=== PATIENT | female | born 1985 | race Caucasian/White ===

== ENCOUNTER 2019-08-22 15:59 | Emergency (ER) | payer BC, SELFPAY ==
[2019-08-22 16:23] VITALS: BP 94/68; PULSE 63; RESP 20; TEMP 37.3; O2SAT 100
--- NOTE | 2019-08-22 16:27 | ED.URI ---
HPI - URI/Sore Throat General Chief Complaint: Abdominal Pain Stated Complaint: abd pain/chills Source: patient and RN notes reviewed Mode of arrival: ambulatory Limitations: no limitations Related Data Home Medications Medication Instructions Recorded Confirmed Alive 1 tablet PO DAILY 07/14/19 07/14/19 Belbuca 300 mcg BUCCAL BID 07/14/19 07/14/19 Allergies Allergy/AdvReac Type Severity Reaction Status Date / Time Penicillins Allergy Unknown Unknown Verified 07/17/19 13:41 Review of Systems Review of Systems: Narrative: CONSTITUTIONAL: Denies malaise, chills, sweats, or fever. EYES: Denies visual changes, redness, or discharge. ENT: Reports rhinorrhea, congestion, sinus pain, otalgia and sore throat. CARDIOVASCULAR: Denies chest pain, palpitations, or edema. RESPIRATORY: Reports cough. Denies dyspnea. GASTROINTESTINAL: Denies abdominal pain, nausea, vomiting, diarrhea SKIN: Denies rash or itching. MUSCULOSKELETAL: Denies myalgia. NEUROLOGIC: Denies headache. All systems reviewed & are unremarkable except as noted in HPI and below PMFSH Past Medical History Medical History Chronic narcotic use Family History Family History (Updated 04/30/15 @ 14:26 by DOCTOR UNKNOWN) Grandparent Diabetes mellitus Social History Social History Smoking status: Never smoker Alcohol intake: current Comments At time of signature, agree with nursing past medical, surgical, social and family history. There is no relevant family history pertinent to the presenting complaint Exam Narrative: Exam Narrative: GENERAL: Well-appearing, well-nourished, and in no acute distress. HEAD: Normocephalic EYES: PERRLA, conjunctivae clear ENT: Nares clear, turbinates edematous and erythematous, clear discharge. Mucous membranes moist. TM pearly flores with dull light reflex bilaterally; no tragal tenderness. Oropharynx erythematous without lesions. Tonsils enlarged and without exudate, no drooling, no hoarseness, no trismus, uvula midline. NECK: Supple. No lymphadenopathy CHEST: Clear to auscultation, breath sounds equal. No wheezing, rhonchi, rales, or stridor. No respiratory distress, speaks in full sentences. HEART: Regular rate and rhythm. No murmur heard. Normal peripheral pulses. SKIN: Warm, dry, no rash. NEURO: Alert and oriented x3. PSYCH: Normal mood and affect ABDOMEN: Soft, flat, nondistended. No guarding, rebound tenderness, or rigid. No pulsatilla masses. Bowel sounds present in all four quadrants. No organomegaly. Negative Calvillo?s sign. No periumbilical tenderness. No Supra public tenderness or distension. Good femoral pulses bilaterally. No hernia noted. No scars or surface trauma. Course Course Emergency Course: Patient is aware of diagnosis, understands and agrees to treatment plan. Anticipatory guidance given. Patient agrees to follow-up as directed and is aware of reasons to seek care at the emergency department. Portions of this record may have been created with voice recognition software Vital Signs Vital signs: Reviewed. MDM - URI/Sore Throat MDM Narrative Medical decision making narrative: No evidence of pancreatitis, AAA, cholecystitis, choledocholithiasis, cholangitis, mesenteric ischemia, small bowel obstruction, diverticulitis, colitis, appendicitis, or pelvic etiology such as ovarian torsion, TOA, or ectopic . Patient has no history of peptic ulcer, H. pylori, chronic aspirin NSAID or corticosteroid use, chronic alcohol use, no history of inflammatory bowel disease, no history of active abdominal infection or malignancy. Patient has no history of hernia or intra-abdominal surgeries, patient denies absence of flatus, constipation, melena, hematemesis. Patient denies post-prandial pain. No pain-out of proportion. Exam findings show no acute concerns or changes; patient is non-toxic appearing and is in no distress. Patient is appropriate for outpatient treatment and follow-up. Crit
--- NOTE | 2019-08-22 16:44 | ED.ABDPAIN ---
HPI - Abdominal Pain General Chief Complaint: Abdominal Pain Stated Complaint: abd pain/chills Time Seen by Provider: 08/22/19 16:30 Source: patient and RN notes reviewed Mode of arrival: ambulatory Limitations: no limitations History of Present Illness HPI narrative: 33-year-old female presents with concern for 3-day history of periumbilical pain with chills. Reports pain is intermittent but takes her breath away she denies nausea vomiting, constipation, diarrhea. Reports she had a normal bowel movement yesterday. Reports urine frequency for 2 days, however denies dysuria, hematuria, urgency. Reports her last menstrual period was in May because she had a that ended in miscarriage at the end of June for which she had a D&C at the end of June. She reports she has not had a menstrual period since then, however has not been sexually active and denies chance of . MD elicited complaint: abdominal pain Related Data Home Medications Medication Instructions Recorded Confirmed buprenorphine 1 patch TRANSDERMAL WEEKLY 08/22/19 08/22/19 Allergies Allergy/AdvReac Type Severity Reaction Status Date / Time Penicillins Allergy Unknown Unknown Verified 08/22/19 16:37 Review of Systems Review of Systems: Narrative: CONSTITUTIONAL: Denies malaise,sweats, or fever. Reports chills ENT: Denies rhinorrhea, congestion, sinus pain, otalgia or sore throat. CARDIOVASCULAR: Denies chest pain, palpitations RESPIRATORY: Denies cough or dyspnea. GASTROINTESTINAL: Reports periumbilical abdominal pain. Denies nausea, vomiting, diarrhea, bloody, or mucous stools. GENITOURINARY: Denies dysuria or hematuria. Reports urine frequency MUSCULOSKELETAL: Denies myalgia. NEUROLOGIC: Denies headache. All systems reviewed & are unremarkable except as noted in HPI and below PMFSH Past Medical History Medical History Chronic narcotic use Family History Family History (Updated 04/30/15 @ 14:26 by DOCTOR UNKNOWN) Grandparent Diabetes mellitus Social History Social History Smoking status: Never smoker Alcohol intake: current Comments At time of signature, agree with nursing past medical, surgical, social and family history. There is no relevant family history pertinent to the presenting complaint Exam Narrative: Exam Narrative: GENERAL: Well-appearing, well-nourished, and in no acute distress. HEAD: Normocephalic, atraumatic. EYES: PERRLA, conjunctivae clear ENT: Nares clear. Mucous membranes moist. Oropharynx without edema, erythema, or lesions. Tonsils not enlarged and without exudate. NECK: Supple. CHEST: Speaks in full sentences. Clear to auscultation, breath sounds equal. No respiratory distress. HEART: Regular rate and rhythm. Capillary refill less than 3 seconds ABDOMEN: Soft, flat, nondistended. No guarding, rebound tenderness, or rigid. No pulsatilla masses. Bowel sounds present in all four quadrants. No organomegaly. Negative Calvillo?s sign. Right upper quadrant and epigastric tenderness. No periumbilical tenderness. No Supra public tenderness or distension. No scars or surface trauma. SKIN: Warm, dry, no rash. NEURO: Alert and oriented x3. PSYCH: Normal mood and affect Course Course Emergency Course: Patient is aware of, understands and agrees reasons to be seen in the emergency department. EMS transfer offered, patient declined. Patient agrees to present directly to the emergency department. Portions of this record may have been created with voice recognition software Vital Signs Vital signs: Vital Signs Temperature 99.2 F 08/22/19 16:23 Pulse Rate 63 08/22/19 16:23 Respiratory Rate 20 08/22/19 16:23 Blood Pressure 94/68 L 08/22/19 16:23 Pulse Oximetry 100 08/22/19 16:23 Temperature 99.2 F 08/22/19 16:23 Pulse Rate 63 08/22/19 16:23 Respiratory Rate 20 08/22/19 16:23 Blood Pressure 94/68 L 08/22/19 16:23 Pulse Oximetry 100 08/22/19 16:23 R
== END 2019-08-22 16:49 | disposition short-term general hospital (02) ==
PROVIDERS: Emergency Provider Nurse Practitioner; PCP Family Medicine
DX: R10.13 Epigastric pain (principal)
CPT/HCPCS: 81003; 99213; G0463

== ENCOUNTER 2019-08-22 16:58 | Emergency (ER) | payer BC, SELFPAY ==
--- NOTE | ~2019-08-22 | CT_ITS ---
EXAMINATION: CT abdomen pelvis w con EXAM DATE: 08/22/2019 19:00 INDICATION: Mid abdominal pain. TECHNIQUE: Spiral CT of the abdomen and pelvis was performed following intravenous injection of 100 m L Omnipaque 350. Axial, coronal and sagittal images were reviewed. The dose-length product (DLP) fo r this examination was 246.03 mGy-cm. The exposure was tailored according to patient size (auto mA e xposure control), and iterative reconstruction (ASIR) was used as additional dose reduction technique . There is no prior study for comparison. FINDINGS: There is a long segment of descending colonic intussusception, measuring about 12 cm in [facility]. I this finding with GERMAN Rodriguez PA-C at 08/22/2019 19:10 HYDROGRAPHER, recommend surgical consult. There is expected amount of colonic stool more proximally, indicating that there h as not been long standing obstruction. The liver, spleen, adrenal glands and pancreas are unremarkable. Gallbladder is unremarkable. No bi liary obstruction. Portal and splenic veins are patent. Kidneys enhance symmetrically. There is no hydronephrosis. The uterus is unremarkable. The bladder is unremarkable. There is no retroperit huerta or pelvic lymphadenopathy. The appendix is normal. The stomach and small bowel are unremarkable. No free intraperitoneal gas. The heart is normal in size. There are no pericardial or pleural effusions. The lung bases are u nremarkable. There are no osteoblastic or osteolytic lesions identified. Mild chronic compression f racture of L1. IMPRESSION: Descending colonic intussusception, for long segment of about 12 cm. Can't exclude underl pinky colonic mass as lead point. No pneumatosis. Reviewed, dictated and finalized at location A. OGRAPHER IMPRESSION: Descending colonic intussusception, for long segment of about 12 cm . Can't exclude underlying colonic mass as lead point. No pneumatosis.
[2019-08-22 17:09] VITALS: BP 110/69; PULSE 63; RESP 20; TEMP 36.6; O2SAT 100
[2019-08-22 17:10] VITALS: BP 108/68; PULSE 70; RESP 16; TEMP 37; O2SAT 99
--- NOTE | 2019-08-22 17:33 | ED.ABDPAIN ---
HPI - Abdominal Pain General Chief Complaint: Abdominal Pain <GERMAN Rodriguez Last Filed: 08/22/19 21:46> Stated Complaint: Abd Pain <GERMAN Rodriguez Last Filed: 08/22/19 21:46> Time Seen by Provider: 08/22/19 17:12 <GERMAN Rodriguez Last Filed: 08/22/19 21:46> Source: patient <GERMAN Rodriguez Last Filed: 08/22/19 21:46> Mode of arrival: ambulatory <GERMAN Rodriguez Last Filed: 08/22/19 21:46> Limitations: no limitations <GERMAN Rodriguez Last Filed: 08/22/19 21:46> History of Present Illness HPI narrative: This is a 33 year old female that presents to the ER for mid abdominal pain x 3 days. Reports sharp mid abdominal pain. Reports it has been intermittent over the last couple days, but today it became more constant. Reports she had a normal bowel movement yesterday. Denies fever, nausea, vomiting, dysuria or hematuria. <GERMAN Rodriguez Last Filed: 08/22/19 21:46> Related Data Home Medications: Home Medications Medication Instructions Recorded Confirmed buprenorphine 1 patch TRANSDERMAL WEEKLY 08/22/19 08/22/19 <GERMAN Rodriguez Last Filed: 08/22/19 21:46> Allergies/Adverse Reactions: Allergies Allergy/AdvReac Type Severity Reaction Status Date / Time Penicillins Allergy Unknown Unknown Verified 08/22/19 16:37 <GERMAN Rodriguez Last Filed: 08/22/19 21:46> Review of Systems Review of Systems: Narrative: CONSTITUTIONAL: Denies fever GASTROINTESTINAL: Reports abdominal pain. Denies nausea, vomiting, or diarrhea. GENITOURINARY: Denies dysuria or hematuria. <GERMAN Rodriguez Last Filed: 08/22/19 21:46> All systems reviewed & are unremarkable except as noted in HPI and below <GERMAN Rodriguez Last Filed: 08/22/19 21:46> [facility] Past Medical History Medical History: Medical History (Updated 08/22/19 @ 20:48 by Anne Delacruz PA-C) Chronic narcotic use Complex regional pain syndrome <Anne Delacruz PA-C - Last Filed: 08/22/19 21:46> Surgical History Surgical History: Surgical History (Updated 08/22/19 @ 17:39 by Anne Delacruz PA-C) History of History of dilation and curettage <Anne Delacruz PA-C - Last Filed: 08/22/19 21:46> Family History Family History: Family History (Updated 04/30/15 @ 14:26 by DOCTOR UNKNOWN) Grandparent Diabetes mellitus <Anne Delacruz PA-C - Last Filed: 08/22/19 21:46> Social History Social History: Social History Smoking status: Never smoker Alcohol intake: current Gender identity (if verbalized by the patient): Female <Anne Delacruz PA-C - Last Filed: 08/22/19 21:46> Exam Narrative: Exam Narrative: GENERAL: Well-appearing, well-nourished, and in no acute distress. HEAD: Normocephalic, atraumatic. EYES: EOMI. CHEST: Clear to auscultation. No respiratory distress. No wheezes rales or rhonchi HEART: Regular rate and rhythm. No murmur heard. Normal peripheral pulses. ABDOMEN: Soft, nondistended, normal active bowel sounds. Mild tenderness to palpation of the mid abdomen, without guarding. No CVA tenderness EXTREMITIES: Normal range of motion. No edema. SKIN: Warm, dry, no rash. NEURO: No focal deficits. Alert and oriented x3. PSYCH: Normal mood and affect <Anne Delacruz PA-C - Last Filed: 08/22/19 21:46> Course TICKET SCHEDULER/PA Physician Supervision For this patient encounter, I reviewed the TICKET SCHEDULER or PA documentation, treatment plan, and medical decision making; and I had qqfu-pf-bghu time with this patient. 33 yo female w/ h/o complex regional pain syndrome presents with 3 days of abdominal pain worsening in severity. On CT she was found to have intussuception. The case was discussed with the radiologist and surgeon. They felt that she should be transfered to a higher level of care. Attempted transfer to [place], no beds. She will be transfered to [facility]. <López Lewis MD
[2019-08-22 17:35] LABS: Basophils Percent Auto 0.3 % (0.2-1.2); Eosinophils Absolute Auto 0.1 K/mm3 (0-0.3); Hematocrit 37.9 % (37.0-47.0); Hemoglobin 12.5 g/dL (12.0-15.0); Immature Granulocyte Absolute 0.02 K/mm3 (0.00-0.031); Immature Granulocyte Percent A 0.2 % (0-0.5); Lymphocytes Percent Auto 27.3 % (18.3-44.2); Mean Corpuscular Hemoglobin 29.9 pg (26-34); Mean Corpuscular Volume 90.7 fl (80-100); Monocytes Absolute Auto 0.9 K/mm3 (0.1-0.6); Neutrophils Absolute Auto 6.7 K/mm3 (1.3-6.7); Neutrophils Percent Auto 63.2 % (45.5-73.1); Platelet Count Result 216 k/mm3 (150-375); Red Blood Count 4.18 M/mm3 (4.2-5.4); Red Cell Distribution Width 12.4 % (11.5-14.5); White Blood Count 10.6 K/mm3 (4.5-10.0)
[2019-08-22] MEDS: ONDANSETRON INJ 4 MG/2 ML VIAL IV PUSH (17:38)
[2019-08-22] MEDS: FAMOTIDINE 20 MG/2 ML VIAL IV PUSH (17:38)
[2019-08-22 17:51] LABS: Add Urine Microscopic? NO; Appearance Urine Clear (Clear); Bilirubin Urine Negative (Negative); Blood Urine Negative (Negative); Color Urine Colorless (Yellow); Glucose Urine UA Negative (Negative); Ketones Urine Negative (Negative); Leukocyte Esterase Ur Negative LEU/UL (Negative); Nitrate Urine Negative (Negative); Protein Urine Negative (Negative); Specific Grav Ur 1.006 (1.001-1.035); Urobilinogen Urine Negative mg/dL (<2.0)
[2019-08-22 18:35] LABS: Alanine Aminotransferase 29 U/L (4-35); Albumin Level 4.3 g/dL (3.5-5.1); Alkaline Phosphatase 42 U/L (38-126); Aspartate Amino Transferase 39 U/L (14-36); Bilirubin,Total 0.3 mg/dL (0.2-1.3); Blood Urea Nitrogen 7 mg/dL (7-17); Calcium 9.2 mg/dL (8.4-10.2); Carbon Dioxide 28 mmol/L (22-30); Chloride 99 mmol/L (98-107); Estimated CRCL calculation 89 ml/min; Estimated Glomerular Filt Rate > 60; Glucose 86 mg/dL (65-105); Lipase 31 U/L (23-300); Potassium 4.1 mmol/L (3.4-5.0); Sodium 137 mmol/L (137-145)
[2019-08-22] MEDS: KETOROLAC 30 MG/ML VIAL (*BKC) IV PUSH (18:44)
[2019-08-22 19:44] VITALS: BP 118/70; PULSE 85; RESP 18; TEMP 36.8; O2SAT 99
--- NOTE | 2019-08-22 20:17 | PC.NURSE ---
Spoke with Juliane at [facility], will put on board, but currently no bed.
[2019-08-22 20:34] VITALS: BP 105/68; PULSE 80; RESP 18; O2SAT 100
[2019-08-22] MEDS: SODIUM CHLORIDE 0.9% IV 1,000 ML 150 ML IV CONT (21:32)
[2019-08-22 21:33] VITALS: BP 98/58; PULSE 82; RESP 16; O2SAT 99
--- NOTE | 2019-08-22 21:51 | PC.NURSE ---
Called [facility] to transport patient to [facility]. ETA midnight
--- NOTE | 2019-08-22 21:55 | PC.NURSE ---
Called [facility] to transport patient. [facility] declined.
--- NOTE | 2019-08-22 21:59 | PC.NURSE ---
Called [facility] to transport patient. [facility] declined
--- NOTE | 2019-08-22 22:00 | PC.NURSE ---
Called [facility] to transport patient. [facility] declined.
[2019-08-22 22:31] VITALS: BP 98/59; PULSE 84; RESP 18; O2SAT 98
[2019-08-23 00:01] VITALS: BP 102/56; PULSE 78; RESP 16; TEMP 36.9; O2SAT 99
--- NOTE | 2019-08-23 01:51 | PC.NURSE ---
[facility] called at 2356 and pushed ETA back to 0130 [facility] called at 0115 and pushed ETA back to 0215
--- NOTE | 2019-08-23 01:51 | PC.NURSE ---
Patient updated ambulance to here around 0215.
--- NOTE | 2019-08-23 02:19 | PC.NURSE ---
Called [facility] for update on ETA. ETA 10 minutes.
[2019-08-23 02:37] VITALS: BP 101/61; PULSE 78; RESP 16; TEMP 36.8; O2SAT 99
== END 2019-08-23 02:39 | disposition short-term general hospital (02) ==
PROVIDERS: Physician Assistant; Emergency Provider Emergency Medicine; PCP Family Medicine
DX: K56.1 Intussusception (principal); G90.50 Complex regional pain syndrome I, unspecified
CPT/HCPCS: 36415; 74177; 80053; 81003; 81025; 83690; 85025; 96361; 96374; 96375; 99285; J0131; J1885; J2405; J7030; Q9967

== ENCOUNTER 2020-04-30 10:00 | Outpatient (RCR) | payer BC, SELFPAY ==
[2020-04-13 10:25] VITALS: BP 102/64; PULSE 80
[2020-04-16 08:30] VITALS: BP 106/60; PULSE 88
[2020-04-20 17:39] VITALS: BP 100/62; PULSE 85
[2020-04-24 12:56] VITALS: BP 105/63; PULSE 82
[2020-04-27 11:12] VITALS: BP 101/62; PULSE 87
--- NOTE | ~2020-04-30 | US_ITS ---
EXAMINATION: US OB BPP wo non-stress DATE: 04/27/2020 10:29 INDICATION: IUGR during third trimester TECHNIQUE: Real-time pelvic ultrasound was performed. The interpreting radiologist was not present fo r the study. COMPARISON: 04/20/2020 FINDINGS: There is a single living fetus in vertex presentation. The placenta is anterior. heart rate is 133 beats per minute (bpm). The amniotic fluid index is subjectively normal. Biophysical profile performed by the technologist: breathing (30 sec sustained breathing in 30 minutes): 2 out of 2 movement (3 gross body movements in 30 minutes): 2 out of 2 tone (one episode of khhgmgv-xtmsxivdv-jtgmwra limb movement): 2 out of 2 Amniotic fluid pocket (2 cm): 2 out of 2 Total score: 8 out of 8 IMPRESSION: 1. Single living fetus in vertex presentation. 2. Biophysical profile 8 out of 8. Reviewed, dictated and finalized at location A. BOARD SUPERVISOR
--- NOTE | ~2020-04-30 | US_ITS ---
EXAMINATION: US OB BPP wo non-stress DATE: 04/20/2020 13:56 INDICATION: IUGR, third trimester TECHNIQUE: Real-time pelvic ultrasound was performed. The interpreting radiologist was not present fo r the study. COMPARISON: 04/16/2020 FINDINGS: There is a single living fetus in vertex presentation. The placenta is anterior. heart rate is 144 beats per minute (bpm). Biophysical profile performed by the technologist: breathing (30 sec sustained breathing in 30 minutes): 2 out of 2 movement (3 gross body movements in 30 minutes): 2 out of 2 tone (one episode of lvlivsu-qbthfvgsz-cszfszm limb movement): 2 out of 2 Amniotic fluid pocket (2 cm): 2 out of 2 Total score: 8 out of 8 IMPRESSION: 1. Single living fetus in vertex presentation. 2. Biophysical profile 8 out of 8. Reviewed, dictated and finalized at location A.
--- NOTE | ~2020-04-30 | US_ITS ---
EXAMINATION: US OB BPP wo non-stress DATE: 04/13/2020 09:56 INDICATION: Small for gestational age during third trimester TECHNIQUE: Real-time pelvic ultrasound was performed. The interpreting radiologist was not present fo r the study. COMPARISON: None. FINDINGS: There is a single living fetus in vertex presentation. The placenta is anterior. heart rate is 135 beats per minute (bpm). Amniotic fluid volume is subjectively normal. Biophysical profile performed by the technologist: breathing (30 sec sustained breathing in 30 minutes): 0 out of 2 movement (3 gross body movements in 30 minutes): 2 out of 2 tone (one episode of xaopzwc-yizmgllwq-xaosvfb limb movement): 2 out of 2 Amniotic fluid pocket (2 cm): 2 out of 2 Total score: 6 out of 8 IMPRESSION: 1. Single living fetus in vertex presentation with heart rate of 135 bpm. 2. Biophysical profile 6 out of 8 with no points given for 30 seconds of sustained breathing over 30 minutes of imaging. Reviewed, dictated and finalized at location A. IMPRESSION: 1. Single living fetus in vertex presentation with heart rate of 135 bpm. 2. Biophysical profile 6 out of 8 with no points given for 30 seconds of susta ined breathing over 30 minutes of imaging.
--- NOTE | ~2020-04-30 | US_ITS ---
US OB BPP wo non-stress DATE: 04/16/2020 08:36 INDICATION: Small for gestational age TECHNIQUE: Real-time imaging and Doppler analysis COMPARISON: 04/09/2020 obstetrical ultrasound with biophysical profile FINDINGS: Live single intrauterine gestation, fetus in longitudinal lie, vertex presentation. h eart rate of 135 bpm. Anterior placenta. Biophysical profile: breathing (30 seconds in 30 minutes): 2/2 movement (3 movements in 30 minutes): 2/2 tone (limited sdjgird-nbslwvtah-ceyohfp): 2/2 Amniotic fluid pocket of at least 2 cm: 2/2 IMPRESSION: Normal biophysical profile score of 8 out of 8 Reviewed, dictated and finalized at Location A. Reviewed, dictated and finalized at location A.
[2020-04-30 10:24] VITALS: BP 100/62; PULSE 85
== END 2020-05-03 08:01 | disposition home or self-care (01) ==
LOC: ANHOBOP 10:00
PROVIDERS: PCP Family Medicine; Visit Provider Student in an Organized Health Care Education/Training Program
DX: O36.5930 Maternal care for other known or suspected poor fetal growth, third trimester, not applicable or unspecified (principal); Z3A.35 35 weeks gestation of pregnancy; Z3A.36 36 weeks gestation of pregnancy; Z3A.37 37 weeks gestation of pregnancy; Z3A.38 38 weeks gestation of pregnancy
CPT/HCPCS: 59025; 76819

== ENCOUNTER 2020-05-01 07:36 | Outpatient (CLI) | payer BC, SELFPAY ==
[2020-05-01 07:56] LABS: Hematocrit 37.5 % (37.0-47.0); Hemoglobin 12.7 g/dL (12.0-15.0); Mean Corpuscular HGB Conc 33.9 g/dl (32-36); Mean Corpuscular Hemoglobin 31.7 pg (26-34); Mean Corpuscular Volume 93.5 fl (80-100); Mean Platelet Volume 10.6 fl (7.4-10.4); Platelet Count Result 233 k/mm3 (150-375); Red Blood Count 4.01 M/mm3 (4.2-5.4); Red Cell Distribution Width 13.3 % (11.5-14.5); White Blood Count 12.9 K/mm3 (4.5-10.0)
[2020-05-02 12:17] LABS: Rapid Plasma Reagin Non-Reactive (NonReactive)
== END 2020-05-01 07:37 | disposition home or self-care (01) ==
PROVIDERS: PCP Family Medicine; Visit Provider Student in an Organized Health Care Education/Training Program
DX: Z34.93 Encounter for supervision of normal pregnancy, unspecified, third trimester (principal); Z3A.00 Weeks of gestation of pregnancy not specified
CPT/HCPCS: 36415; 85027; 86592; 86850; 86900; 86901

== ENCOUNTER 2020-05-02 09:41 | Inpatient (IN) | payer BC, SELFPAY ==
[2020-05-01 17:32] VITALS: BMI 27.5
--- NOTE | 2020-05-01 23:10 | PM.IMHP ---
H&P: HPI History of Present Illness Date/Time: 05/01/20 23:10 Chief complaint: previous csection Narrative: 34 y/o at 39 weeks with a prior , desiring repeat. She has been followed for IUGR. Last ultrasound exam showed EFW 5#5oz on 04/17/20, in the 7th percentile for weight. Umbilical artery dopplers were normal. Review of Systems Review of Systems: All systems reviewed & are unremarkable except as noted in HPI and below PMFSH Past Medical History Medical History (Updated 05/01/20 @ 23:15 by Howard Solis MD) Chronic narcotic use Complex regional pain syndrome Surgical History Surgical History (Updated 05/01/20 @ 23:15 by Howard Solis MD) History of History of dilation and curettage Family History Family History Grandparent Diabetes mellitus Social History Social History Smoking status: Never smoker Alcohol intake: current Substance use: never Gender identity (if verbalized by the patient): Female Spiritual care concerns: No Meds Home Medications and Allergies Home Medications Medication Instructions Recorded Confirmed Type PNV cmb#95-ferrous fumarate-FA 1 tablet PO DAILY 04/27/20 05/01/20 History [] buprenorphine 1 patch TRANSDERMAL WEEKLY 04/27/20 05/01/20 History ergocalciferol (vitamin D2) 50,000 unit PO WEEKLY 04/27/20 05/01/20 History [Vitamin D2] ferrous sulfate 325 mg PO DAILY 04/27/20 05/01/20 History Allergies Allergy/AdvReac Type Severity Reaction Status Date / Time Penicillins Allergy Unknown Unknown Verified 09/07/19 10:35 Exam Const: Orientation/consciousness: patient oriented x3 Other: Well-developed, well-nourished female in no acute distress. Neck: Thyroid: thyroid normal Lymphatic: no lymphadenopathy noted (in neck, axilla or inguinal nodes) Resp: Effort & Inspection: normal respiratory effort Auscultation: clear to auscultation bilaterally Cardio: Rate: regular rate Rhythm: regular rhythm Heart sounds: S1 normal heart sound present and S2 normal heart sound present GI: Other: ABD: Soft, nontender, nondistended, gravid. FHR auscultated. : General: Yes no CVA tenderness Other: Cervix closed. Back/Spine/Pelvis: Back: no CVA tenderness Skin: General skin exam: normal color and no rashes or lesions noted Neuro: General: patient oriented x3 Extrem: Other: Extremities: nontender with no edema Psych: Mental Status: mental status grossly normal Affect: normal affect Assessment and Plan Assessment and plan (1) History of : Code(s): Z98.891 - History of uterine scar from previous surgery Status: Acute Assessment and Plan: She desires repeat . She understands risks of surgery to include risks of anesthesia, risks of pain, infection, bleeding, blood products, thromboembolic phenomena and damage to adjacent structures such as bowel, bladder, ureters, blood vessels and nerves. She understands all these risks and elects to proceed with surgery. (2) Intrauterine growth restriction (IUGR) affecting care of mother: Code(s): O36.5990 - Maternal care for other known or suspected poor growth, unspecified trimester, not applicable or unspecified Status: Acute
[2020-05-02] VITALS (45 sets, daily range): BP systolic 82–109; BP diastolic 40–75; PULSE 67–133; RESP 16–20; TEMP 36.3–36.6; O2SAT 95–100
[2020-05-02] MEDS: LACTATED RINGERS 1,000 ML 125 ML IV CONT ×2 (10:40→11:55)
--- NOTE | 2020-05-02 11:33 | WPDANESEPPF ---
Anes - Initial Pre Proc Eval Procedure: Operation Date: 05/02/20 12:00 Proposed Procedures p Repeat Section - Alberto Navarro MD Date/Time: 05/02/20 11:33 Surgeon: Alberto Navarro MD Pre Op Diagnosis: Section Patient Data Age: 34 Gender: F Height: 5 ft 2 in Weight: 68.2 kg Last Vital Signs Pulse 96 05/02/20 11:30 BP 108/66 05/02/20 11:30 Allergies Allergy/AdvReac Type Severity Reaction Status Date / Time Penicillins Allergy Unknown Unknown Verified 09/07/19 10:35 Home Medications Medication Instructions Recorded Confirmed Type PNV cmb#95-ferrous fumarate-FA 1 tablet PO DAILY 04/27/20 05/01/20 History [] buprenorphine 1 patch TRANSDERMAL WEEKLY 04/27/20 05/01/20 History ergocalciferol (vitamin D2) 50,000 unit PO WEEKLY 04/27/20 05/01/20 History [Vitamin D2] ferrous sulfate 325 mg PO DAILY 04/27/20 05/01/20 History Patient hx anesthesia problems: none Family hx anesthesia problems: none PMFSH Past Medical History Medical History Chronic narcotic use Complex regional pain syndrome Surgical History Surgical History History of History of dilation and curettage Family History Family History Grandparent Diabetes mellitus Social History Social History Smoking status: Never smoker Alcohol intake: current Substance use: never Gender identity (if verbalized by the patient): Female Spiritual care concerns: No Anes - Eval Final PreProcedure Day of Procedure 05/02/20 11:33 Patient weight: overweight Heart: regular rate and rhythm Lungs: clear to auscultation Airway: Mallampati scale class II Neurological: alert and oriented Last oral intake: >/= 8 hours ASA classification: III Emergent: no Anesthetic plan: proceed Anesthesia type and monitoring: regional spinal and standard monitoring Informed Consent: The patient's anesthetic plan and its attendant risks and benefits were discussed with the patient/family/POA. Questions were solicited and answers provided to the satisfaction of the patient/family/POA.
--- NOTE | 2020-05-02 12:09 | WPDHPUPDATE1 ---
History and Physical Update Update Date/Time: 05/02/20 12:09 History and Physical has been reviewed, including an updated exam of the patient. There are NO changes in the patient's condition. Risks, benefits, and alternatives have been discussed and questions answered. Patient agrees to proceed with procedure.
[2020-05-02] MEDS: KETOROLAC 30 MG/ML VIAL (*BKC) IV PUSH ×2 (12:54→18:28)
--- NOTE | 2020-05-02 13:04 | PM.OBPRVD ---
OB - Delivery Note Procedure Delivery date: 05/02/20 Procedure: Procedures Operation Date: 05/02/20 12:00 <No data on this case meets the specified criteria> Repeat low transverse delivery Delivery monitor: external FHT and external uterine Specimen: Yes (cord blood, placenta) Estimated blood loss (mL): 340 Anesthesia type: Spinal Disposition: PACU Complications: None Narrative: The patient was taken to the operating room where she was prepared and draped in the usual sterile fashion in dorsal supine position with a leftward tilt. She received cefazolin preoperatively. Spinal anesthesia was found to be adequate. A Pfannenstiel skin incision was made along the previous scar line and was carried through to the underlying layer of the fascia. The fascia was incised in the midline and the incision was extended laterally. The fascia was dissected free of the underlying rectus muscles. The rectus muscles were in the midline. The peritoneum was identified, tented up and entered sharply. The peritoneal incision was extended superiorly and inferiorly with good visualization of the bladder. The bladder blade was placed. The vesicouterine peritoneum was identified, tented up and entered sharply. The incision was extended laterally and the bladder flap was developed. The bladder blade was replaced. The uterus was then incised sharply in a transverse fashion along the lower uterine segment. The incision was extended laterally. The 's head was delivered atraumatically to the sterile field, followed by the body. The nose and mouth were bulb suctioned. After a delay, the cord was clamped and cut. The infant was handed off the field. Cord blood was collected. The placenta was removed manually and was passed off the field. The uterus was exteriorized and cleared of all clots and debris. The uterine incision was reapproximated using 0 Monocryl in a running, locked fashion. Excellent hemostasis resulted as did excellent reapproximation of the normal anatomy. The uterus was returned the abdomen. The pelvis was irrigated copiously with warmed normal saline. Rigorous hemostasis was assured. The fascial layer was reapproximated using 0 Vicryl in a running fashion. The skin was closed with a running, subcuticular stitch of 4 0 Vicryl. Dermaflex was applied externally. Sponge, lap, needle and instrument counts were correct. The patient was taken to the recovery room in stable condition. The infant went to the nursery in stable condition. I was present and scrubbed the entire procedure. Baby Date of : 05/02/20 Time of : 12:42 Weeks of gestation at delivery: 39 Infant gender: Male Weight (pounds): 6 Weight (ounces): 15 presentation: vertex Placenta delivery description: Manual Removal and Normal Configuration cord vessel description: 3 Vessels score one minute: 9 score five minutes: 9
--- NOTE | 2020-05-02 13:06 | PM.OBDSVD ---
DS: Admitting Diagnosis Admitting Diagnosis Admitting Diagnosis: IUP at 39 weeks Prior IUGR DS: Discharge Diagnosis Discharge Diagnosis (1) Intrauterine growth restriction (IUGR) affecting care of mother: Code(s): O36.5990 - Maternal care for other known or suspected poor growth, unspecified trimester, not applicable or unspecified Status: Acute (2) History of : Code(s): Z98.891 - History of uterine scar from previous surgery Status: Acute OB - DS: Summary OB Procedures : None OB Procedures Intrapartum: OB Procedures: : None Peripartum Data Procedures: Procedures Operation Date: 05/02/20 12:00 <No data on this case meets the specified criteria> Repeat LTCS Discharge Plan Discharge Attending physician on discharge: Howard Solis Consulting providers: Gavino Edward Discharging Clinician: Howard Solis Patient Disposition: Home, Self-Care Activity: may shower, may drive after 2 weeks and pelvic rest Diet: regular Wound Care Instructions: incision open to air Discharge Instructions: Education: Mom and Baby Guide Given to: Mother Follow-Up: Call your delivering provider's office for an appointment to be seen in: 1 Week Mom and baby should come to the [facility] for the follow-up appointment. Appointment Date/Time: May 06, 2020 at 1:30 pm What to expect at your follow-up visit: Blood Pressure Check Physical Assessment Call [phone] if you are unable to keep your appointment time. BREAST CARE: * Wear a snug supportive bra. * For engorgement discomfort: Bottle Feeding: * May apply ice packs * No stimulation to breasts even stand with back to shower *May take Motrin for discomfort ABDOMINAL INCISION: (if applicable) * Allow incision to air dry * Do NOT use lotions for powders on your incision * When showering, allow soap and water to run over the incision, but do not wash incision EPISIOTOMY/PERINEAL CARE: * Until bleeding stops, use your dalila bottle after urinating * Change your pad frequently throughout the day * No tub baths until seen by your physician - You may shower ACTIVITY: * Rest as much as possible. * Do not exercise or lift anything heavier than your baby (such as laundry or other children.) * Avoid stairs or driving as much as possible for about 2 weeks. * Do not put anything into the vagina. No douching, tampons, or sexual activity until seen by physician. NOTIFY PHYSICIAN IF YOU HAVE ANY QUESTIONS OR IF ANY OF THE FOLLOWING SYMPTOMS OCCUR: * If your episiotomy or incision becomes red, swollen, or more painful than what you have experienced in the hospital. * If your vaginal bleeding becomes foul smelling. * If your vaginal bleeding becomes more heavy than a period or if your bleeding changes from pink to bright red. However, you may pass an occasional walnut-sized clot once or twice for the first week . * If you experience a sharp, shooting pain in you calves. * If you discover a hard, reddened area on your breast or if you experience flu-like symptoms. DIET: * Eat regular, well-balanced meals. * Drink plenty of fluids daily. If , drink to thirst. Call or return if temperature above 100.4? F, increased abdominal pain, increased vaginal bleeding or any new problems. Stand Alone Forms: General Discharge Information Follow-up/Referrals: Alberto Navarro MD [Physician] - 4 Weeks Discharge Medications: New ibuprofen 600 mg tablet 600 mg PO Q6H PRN (Reason: cramps) Qty: 30 RF: 0 Continued buprenorphine 15 mcg/hour Patch Weekly 1 patch TRANSDERMAL WEEKLY RF: 0 ferrous sulfate 325 mg (65 mg iron) Tablet 325 mg PO DAILY RF: 0 ergocalciferol (vitamin D2) [Vitamin D2] 1,250 mcg (50,000 unit) Capsule 50,000 unit PO WEEKLY RF: 0 PNV cmb#95-ferrous fumarate-
[2020-05-02] MEDS: OXYTOCIN 30 UNITS/NS 500 ML 30 UNITS/500 ML BAG 125 UNITS IV CONT (13:45)
--- NOTE | 2020-05-02 16:14 | PC.NURSE ---
Patient transferred to post room #277 via stretcher. Support person present. Oriented to unit, room, information board, rooming in, admission packet and security measures. Patient verbalizes understanding.
[2020-05-02] MEDS: DEXTROSE 5%/0.45% SOD CHL 1,000 ML 125 ML IV CONT (18:50)
[2020-05-02] MEDS: diphenhydrAMINE HCl INJ 50 MG/ML VIAL 25 MG IV PUSH (20:05)
[2020-05-03] MEDS: KETOROLAC 30 MG/ML VIAL (*BKC) IV PUSH (01:33)
[2020-05-03] MEDS: ACETAMINOPHEN 325 MG TABLET 650 MG PO ×3 (05:14→20:23)
[2020-05-03 05:40] VITALS: BP 80/45; PULSE 60; RESP 16; TEMP 36.3; O2SAT 98
[2020-05-03 05:55] LABS: Basophils Percent Auto 0.2 % (0.2-1.2); Eosinophils Absolute Auto 0.1 K/mm3 (0-0.3); Eosinophils Percent Auto 0.8 % (0-4.4); Hematocrit 31.1 % (37.0-47.0); Hemoglobin 10.3 g/dL (12.0-15.0); Immature Granulocyte Percent A 0.6 % (0-0.5); Lymphocytes Absolute Auto 2.13 K/mm3 (0.9-3.2); Lymphocytes Percent Auto 13.3 % (18.3-44.2); Mean Corpuscular HGB Conc 33.1 g/dl (32-36); Mean Corpuscular Hemoglobin 30.9 pg (26-34); Mean Corpuscular Volume 93.4 fl (80-100); Mean Platelet Volume 10.9 fl (7.4-10.4); Monocytes Absolute Auto 1.2 K/mm3 (0.1-0.6); Monocytes Percent Auto 7.5 % (2.6-8.5); Neutrophils Absolute Auto 12.4 K/mm3 (1.3-6.7); Neutrophils Percent Auto 77.6 % (45.5-73.1); Platelet Count Result 227 k/mm3 (150-375); Red Blood Count 3.33 M/mm3 (4.2-5.4); Red Cell Distribution Width 13.4 % (11.5-14.5)
[2020-05-03 07:30] VITALS: BP 91/57; PULSE 74; RESP 18; TEMP 36.6; O2SAT 99
--- NOTE | 2020-05-03 07:39 | WPDANLDPN2 ---
Anes-Prog Note L&D Date/Time: 05/03/20 07:39 Comfortable throughout: labor and delivery Neuraxial method: epidural Epidural/Spinal procedure site: clean & non-tender Neuro status: Neuro function grossly intact. Cardiovascular status: normal Respiratory status: normal Airway patency: baseline Mental status: baseline Post-Op hydration status: normal Vital Signs: Last Vital Signs Temp 36.3 C L 05/03/20 05:40 Pulse 60 05/03/20 05:40 Resp 16 05/03/20 05:40 BP 80/45 L 05/03/20 05:40 Pulse Ox 98 05/03/20 05:40 Pain score (VAS): 06/30 I/O: Intake & Output 05/02/20 05/02/20 05/03/20 15:59 23:59 07:59 Intake Total 1600 500 Output Total 657 1750 800 Balance 943 -1030 -300 Post-procedural complaints: none Patient feedback: Patient satisfied with anesthetic care.
--- NOTE | 2020-05-03 07:39 | WPDANLDNPN2 ---
Anes-Prog Note L&D-Neuraxial Date/Time: 05/03/20 07:39 Neuraxial medications: intrathecal PF morphine Opiod-related complaints: none Patient feedback: Patient satisfied with post-operative pain management.
--- NOTE | 2020-05-03 08:45 | P.PNOB_ITS ---
OB - PN: Subj Subjective Date/time seen: 05/03/20 12:27 Narrative: Pain OK. Tolerating diet. Would like circumcision for son. OB - PN: Obj Data Labs CBC & Chem 7: 05/03/20 05:35 Labs: Laboratory Results - last 24 hr 05/03/20 05:35 WBC 16.0 H RBC 3.33 L Hgb 10.3 L Hct 31.1 L MCV 93.4 MCH 30.9 MCHC 33.1 RDW 13.4 Plt Count 227 MPV 10.9 H Immature Gran % (Auto) 0.6 H Neut % (Auto) 77.6 H Lymph % (Auto) 13.3 L Wilbar[place] % (Auto) 7.5 Eos % (Auto) 0.8 Baso % (Auto) 0.2 Lymph # (Auto) 2.13 [place] # (Auto) 1.2 H Eos # (Auto) 0.1 Baso # (Auto) 0.0 Abs Immat Gran (auto) 0.10 H Absolute Neuts (auto) 12.4 H Absolute Nucleated RBC 0.0 Nucleated RBC % 0.0 OB - PN A/P Plan Comments: A: POD#1, doing well. P: Routine care. Reviewed circ. Exam Narrative: Exam Narrative: AVSS I/O OK ABD soft, nontender, fundus firm. Incision c/d/i. EXT nontender
[2020-05-03] MEDS: IBUPROFEN 600 MG TABLET PO ×2 (08:48→16:12)
[2020-05-03] MEDS: DOCUSATE SODIUM 100 MG CAPSULE PO ×2 (08:48→16:12)
[2020-05-03] MEDS: MULTIVIT/MIN/PREN/FOL AC/IRON TABLET 1 TAB PO (11:39)
[2020-05-03 12:00] VITALS: BP 97/54; PULSE 65; RESP 18; TEMP 36.3; O2SAT 98
[2020-05-03] MEDS: KETOROLAC 10 MG TABLET PO (20:23)
[2020-05-03 21:00] VITALS: BP 93/54; PULSE 59; RESP 16; RESP 18; TEMP 36.2; O2SAT 99
[2020-05-04] MEDS: KETOROLAC 10 MG TABLET PO ×3 (03:51→17:22)
--- NOTE | 2020-05-04 07:03 | P.PNOB_ITS ---
OB - PN: Subj Subjective Date/time seen: 05/04/20 07:03 Patient comments: no complaints and pain well controlled baby status: doing well and nursing well OB - PN: Obj Data Labs CBC & Chem 7: 05/03/20 05:35 OB - PN A/P Plan day: 2 Plan: routine care Time Spent With Patient Time: Total time spent is greater than 50% in coordination of care (as paty truong) at patient's floor/unit and/or counseling patient: Time with patient: less than 15 minutes Review of Systems Review of Systems: All systems reviewed & are unremarkable except as noted in HPI and below Exam Const: General: no acute distress Eyes: General: appearance normal, both eyes and all related structures Neck: Neck: supple and no JVD Thyroid: thyroid normal Resp: Effort & Inspection: normal respiratory effort Auscultation: clear to auscultation bilaterally Cardio: Rate: regular rate Rhythm: regular rhythm GI: Inspection: normal to inspection Percussion: Yes normal to percussion Auscultation: normal bowel sounds Rectal Exam: visual inspection normal (wound cdi) : General: Yes bladder normal to palpation External Female Exam: normal external appearance Speculum Exam - Vagina: normal vaginal discharge and No vaginal bleeding Speculum Exam - Cervix: nontender Bimanual exam- vagina & uterus: bladder normal to palpation and No Cervical tenderness present OB/external & speculum: No vaginal bleeding Skin: General skin exam: no rashes or lesions noted Extrem: General: normal to inspection and no edema Psych: Mental Status: mental status grossly normal Affect: normal affect
[2020-05-04] MEDS: DOCUSATE SODIUM 100 MG CAPSULE PO ×2 (07:50→17:23)
[2020-05-04] MEDS: ACETAMINOPHEN 325 MG TABLET 650 MG PO (07:50)
[2020-05-04 08:00] VITALS: BP 100/57; PULSE 62; RESP 14; TEMP 36.6; O2SAT 98
[2020-05-04 20:15] VITALS: BP 109/58; PULSE 79; RESP 16; TEMP 36.4; O2SAT 99
--- NOTE | 2020-05-05 06:41 | PM.OBPNVD ---
OB - PN: Subj Subjective Date/time seen: 05/05/20 06:41 Patient comments: no complaints and pain well controlled baby status: doing well and nursing well OB - PN: Obj Data Labs CBC & Chem 7: 05/03/20 05:35 OB - PN A/P Plan day: 3 Plan: routine care, discharge home and follow up 6 weeks (4 weeks) Time Spent With Patient Time: Total time spent is greater than 50% in coordination of care (as documented) at patient's floor/unit and/or counseling patient: Time with patient: less than 15 minutes Review of Systems Review of Systems: All systems reviewed & are unremarkable except as noted in HPI and below Exam Const: General: no acute distress Eyes: General: appearance normal, both eyes and all related structures Neck: Neck: supple and no JVD Thyroid: thyroid normal Resp: Effort & Inspection: normal respiratory effort Auscultation: clear to auscultation bilaterally Cardio: Rate: regular rate Rhythm: regular rhythm GI: Inspection: non-distended GI Palp: Yes Soft to palpation, No Tenderness to palpation present (GI) and No Guarding due to palpation present (GI) Auscultation: normal bowel sounds : General: Yes bladder normal to palpation External Female Exam: normal external appearance Speculum Exam - Vagina: normal vaginal discharge and No vaginal bleeding Speculum Exam - Cervix: nontender Bimanual exam- vagina & uterus: bladder normal to palpation and No Cervical tenderness present OB/external & speculum: No vaginal bleeding Skin: General skin exam: no rashes or lesions noted Extrem: General: normal to inspection and no edema Psych: Mental Status: mental status grossly normal Affect: normal affect
--- NOTE | 2020-05-05 06:42 | PM.DS ---
DS: Admitting Diagnosis Admitting Diagnosis Admitting Diagnosis: Section DS: Summary Time Spent with Patient Time attestation: Total time spent providing and/or coordinating discharge services: The patient was admitted for repeat section. The procedure was unremarkable. Her hospital course was unremarkable. She remained afebrile. She was up, eating regular diet, ambulating, voiding and generally without complaints. Exam Const: General: no acute distress Eyes: General: appearance normal, both eyes and all related structures Neck: Neck: supple and no JVD Thyroid: thyroid normal Resp: Effort & Inspection: normal respiratory effort Auscultation: clear to auscultation bilaterally Cardio: Rate: regular rate Rhythm: regular rhythm GI: Inspection: non-distended GI Palp: Yes Soft to palpation, No Tenderness to palpation present (GI) and No Guarding due to palpation present (GI) Auscultation: normal bowel sounds : General: Yes bladder normal to palpation External Female Exam: normal external appearance Speculum Exam - Vagina: normal vaginal discharge and No vaginal bleeding Speculum Exam - Cervix: nontender Bimanual exam- vagina & uterus: bladder normal to palpation and No Cervical tenderness present OB/external & speculum: No vaginal bleeding Skin: General skin exam: no rashes or lesions noted Extrem: General: normal to inspection and no edema Psych: Mental Status: mental status grossly normal Affect: normal affect DS: Data Data Completed and Pending Pending studies at discharge: Pending at discharge 05/02/20 13:38 Surgical [PTH] Routine Discharge Plan Discharge Attending physician on discharge: Howard Solis Discharging Clinician: Howard Solis Patient Disposition: Home, Self-Care Activity: may shower, may drive after 2 weeks and pelvic rest Diet: regular Wound Care Instructions: incision open to air Discharge Instructions: Call or return if temperature above 100.4? F, increased abdominal pain, increased vaginal bleeding or any new problems. Stand Alone Forms: General Discharge Information Follow-up/Referrals: Alberto Navarro MD [Physician] - 4 Weeks Discharge Medications: New ibuprofen 600 mg tablet 600 mg PO Q6H PRN (Reason: cramps) Qty: 30 RF: 0 Continued buprenorphine 15 mcg/hour Patch Weekly 1 patch TRANSDERMAL WEEKLY RF: 0 ferrous sulfate 325 mg (65 mg iron) Tablet 325 mg PO DAILY RF: 0 ergocalciferol (vitamin D2) [Vitamin D2] 1,250 mcg (50,000 unit) Capsule 50,000 unit PO WEEKLY RF: 0 PNV cmb#95-ferrous fumarate-FA [] 28 mg iron- 800 mcg Tablet 1 tablet PO DAILY RF: 0 Date of admission: 05/02/20 09:41 Primary Care Provider: Nikos Brooks Admitting Provider: Alberto Navarro Attending physician on admission: Alberto Navarro Condition: Stable
[2020-05-05] MEDS: IBUPROFEN 600 MG TABLET PO (07:25)
[2020-05-05] MEDS: DOCUSATE SODIUM 100 MG CAPSULE PO (07:26)
[2020-05-05 07:48] VITALS: BP 104/63; PULSE 58; PULSE 79; RESP 14; RESP 16; TEMP 37; O2SAT 100; O2SAT 99
[2020-05-05] MEDS: ACETAMINOPHEN 325 MG TABLET 650 MG PO (09:36)
[2020-05-06 13:52] VITALS: BP 107/66; PULSE 92; RESP 16; TEMP 36.6; O2SAT 99
== END 2020-05-05 11:30 | disposition home or self-care (01) | DRG 788 ==
LOC: ANHLDR 13:08 → ANHOB2 05-05 07:47 → ANHLDR 05-07 13:57 → ANHOB2 05-07 13:57
PROVIDERS: Admitting Provider Obstetrics & Gynecology; PCP Family Medicine; Visit Provider Obstetrics & Gynecology
PROC: 10D00Z1 Extraction of Products of Conception, Low, Open Approach (ICD-10-PCS; CPT 59514; principal; 2020-05-02 12:00)
DX: O34.211 Maternal care for low transverse scar from previous cesarean delivery (principal); O36.5930 Maternal care for other known or suspected poor fetal growth, third trimester, not applicable or unspecified; Z3A.39 39 weeks gestation of pregnancy; Z37.0 Single live birth
CPT/HCPCS: 36415; 85025; 88307; A9270; J0131; J1200; J1885; J2274; J2370; J2405; J2590; J7120

== ENCOUNTER 2020-06-05 08:50 | Outpatient (NON) | payer BC, SELFPAY ==
[2020-06-05 18:06] LABS: SARS-CoV-2 RNA PCR Negative
== END 2020-06-05 08:51 ==
LOC: ANHCOVIDDT 08:53
PROVIDERS: Visit Provider Nurse Practitioner Family
DX: Z20.828 Contact with and (suspected) exposure to other viral communicable diseases (principal); J02.9 Acute pharyngitis, unspecified
CPT/HCPCS: 87635; C9803; U0003

== ENCOUNTER → 2021-01-17 08:07 | Outpatient (CLI) | payer BC, SELFPAY ==
[2021-01-17 18:53] LABS: SARS-CoV-2 RNA PCR Negative
== END ==
PROVIDERS: PCP Family Medicine; Visit Provider Nurse Practitioner Family
DX: R68.89 Other general symptoms and signs (principal); Z20.822 Contact with and (suspected) exposure to COVID-19
CPT/HCPCS: C9803; U0003; U0005

== ENCOUNTER → 2021-06-12 14:59 | Outpatient (CLI) | payer BC, SELFPAY ==
--- NOTE | ~2021-06-12 | CT_ITS ---
EXAMINATION: CT sinus wo con DATE: 06/12/2021 15:27 INDICATION: Chronic sinusitis TECHNIQUE: Computed tomography (CT) of the paranasal sinuses was performed without intravenous contra st. The dose-length product was 288.85 mGy-cm. Automated exposure control and iterative reconstructio n technique were employed. COMPARISON: CT dated 11/22/2016 FINDINGS: There is no significant mucosal thickening or abnormal fluid in the paranasal sinuses. No m ucoperiosteal reaction. Rightward nasal septal deviation. Ostiomeatal units are patent bilaterally. M astoids are pneumatized. IMPRESSION: 1. No significant sinus disease. Reviewed, dictated and finalized at location A. IFIED INDOOR ENVIRONMENTALIST
== END ==
PROVIDERS: Visit Provider Otolaryngology
DX: J32.2 Chronic ethmoidal sinusitis (principal)
CPT/HCPCS: 70486

== ENCOUNTER → 2021-06-12 15:00 | Outpatient (CLI) | payer BC, SELFPAY ==
--- NOTE | ~2021-06-12 | US_ITS ---
EXAMINATION: US axilla RT INDICATION: Palpable mass of the right axilla TECHNIQUE: Limited right axillary ultrasound is performed. COMPARISON: None available FINDINGS: No suspicious cystic or solid mass is identified in the right axilla in the area of palpabl e concern. Sonographically normal appearing lymph nodes are noted. IMPRESSION: 1. No suspicious right axillary mass identified. BI-RADS Category 1: Negative Reviewed, dictated and finalized at location A. NGUAL EXECUTIVE ASSISTANT
--- NOTE | ~2021-06-12 | US_ITS ---
US soft tissue head and neck 06/12/2021 15:44 Indication: Evaluate for lymph nodes. Procedure: High-resolution ultrasound of the right neck in the area of palpable concern Comparison: No prior studies for comparison. Findings: There are normal-appearing lymph nodes of the right neck which retain their fatty hilum. No pathologically appearing lymph nodes are identified. Impression: 1: Normal cervical lymph nodes. Reviewed, dictated and finalized at location A. TY INSTRUCTION POLICE OFFICER Impression: 1: Normal cervical lymph nodes.
== END ==
PROVIDERS: Visit Provider Physician Assistant Medical
DX: R22.30 Localized swelling, mass and lump, unspecified upper limb (principal)
CPT/HCPCS: 76536; 76882

== ENCOUNTER 2022-08-26 19:20 | Emergency (ER) | payer BC, SELFPAY ==
[2022-08-26 19:25] VITALS: BP 106/66; PULSE 81; RESP 16; TEMP 36.3; O2SAT 100
--- NOTE | 2022-08-26 19:31 | ED.FEMALEGU ---
HPI - Female Genitourinary General Chief complaint: Urogenital-Female Stated complaint: Possible UTI Time Seen by Provider: 08/26/22 19:31 Source: patient, RN notes reviewed and old records reviewed Mode of arrival: ambulatory Limitations: no limitations History of Present Illness HPI Narrative: 36-year-old female who presents to [facility] with complaints of burning with urination for the past 2 days. Patient states she has taken azo for her symptoms with last dose this morning. Patient reports history of UTI infections in the past with similar symptoms. Patient reports that she has burning urgency and frequency of urination, no visible blood, denies any CVA tenderness or supra pubic abdominal pain. Patient denies any vaginal discharge or itching denies any concern for STD's MD elicited complaint: dysuria Onset (ago): day(s) (2) Location of symptoms: urethra Severity scale (1-10): 3 Quality of pain: burning Treatment prior to arrival: OTC urinary analgesics (AZO last dose this morning) Related Data Home Medications Medication Instructions Recorded Confirmed buprenorphine 15 mcg/hour weekly 1 patch transdermal WEEKLY 04/27/20 08/26/22 transdermal patch nortriptyline 25 mg capsule 25 mg PO DAILY 08/26/22 08/26/22 Allergies Allergy/AdvReac Type Severity Reaction Status Date / Time Penicillins Allergy Unknown Unknown Verified 08/26/22 19:30 Review of Systems Review of Systems: CONSTITUTIONAL: Denies fever, chills, or sweats. CARDIOVASCULAR: Denies chest pain, palpitations, or edema. RESPIRATORY: Denies cough or dyspnea. GASTROINTESTINAL: Denies abdominal pain, nausea, vomiting, or diarrhea. GENITOURINARY: Reports dysuria, frequency, urgency. Denies flank pain or hematuria. SKIN: Denies rash or itching. MUSCULOSKELETAL: history of chronic back pain or myalgia. Denies CVA tenderness NEUROLOGIC: Denies headache All systems reviewed & are unremarkable except as noted in HPI and below [facility] Past Medical History Medical History (Updated 08/27/22 @ 11:43 by Constanza Ruggiero NP) BMI 21.0-21.9, adult Chronic narcotic use Complex regional pain syndrome UTI (urinary tract infection) Surgical History Surgical History History of History of dilation and curettage Family History Family History Grandparent Diabetes mellitus Father No problems noted. Mother Thyroid activity decreased Sibling No problems noted. 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 There is no relevant family history pertinent to the presenting complaint Exam Narrative: GENERAL: Well-appearing, well-nourished, and in no acute distress. HEAD: Normocephalic, atraumatic. NECK: Supple. no lymphadenopathy CHEST: Clear to auscultation. No respiratory distress.SAO2 100% on room air HEART: Regular rate and rhythm. No murmur heard. Normal peripheral pulses. ABDOMEN: Soft, nontender, nondistended, normal active bowel sounds. No CVA tenderness, urinary burning, frequency and urgency reported EXTREMITIES: Normal range of motion. No edema. SKIN: Warm, dry, no rash. NEURO: No focal deficits. Alert and oriented x3. Course Course Emergency Course: Patient is aware of di
== END 2022-08-26 19:49 | disposition home or self-care (01) ==
PROVIDERS: Emergency Provider Registered Nurse; PCP Family Medicine
DX: N39.0 Urinary tract infection, site not specified (principal)
CPT/HCPCS: 81003; 87077; 87086; 87186; 99213; G0463

== ENCOUNTER 2022-09-15 08:25 | Emergency (ER) | payer BC, SELFPAY ==
[2022-09-15] VITALS (20 sets, daily range): BP systolic 97–110; BP diastolic 60–86; PULSE 78–114; RESP 16–19; TEMP 36.6; O2SAT 99–100
--- NOTE | ~2022-09-15 | CT_ITS ---
EXAMINATION: CT abdomen pelvis w con DATE: 09/15/2022 12:53 INDICATION: Lower abdominal pain and chills for one day. Recent miscarriage. TECHNIQUE: Computed tomography (CT) of the abdomen and pelvis was performed with 100 CC Omnipaque 350 intravenous contrast. Automated exposure control and iterative reconstruction technique were employe d. Exam dose: 253.66 mGy-cm total exam DLP. COMPARISON: 08/22/2019 CT abdomen pelvis FINDINGS: The lung bases are clear. Normal heart size. No pericardial or pleural effusion. The liver, gallbladder, bile ducts, spleen, pancreas, pancreatic duct, and adrenal glands and kidneys appear normal. The uterus and adnexal areas are unremarkable other than approximately 1.6 cm right ovarian cyst. Sma ll free fluid collection in the posterior cul-de-sac, likely physiologic. Normal caliber of the abdominal aorta. No intraperitoneal or retroperitoneal or pelvic mass lesion or adenopathy or ascites. There is a suture line of the right colon. As a very prominent of fecal material throughout the colon . No obstruction or intraperitoneal free air is evident. IMPRESSION: Postoperative change of the colon. Very prominent amount of fecal material in the colon, particularly the transverse and right colon. Co nsider barium enema or colonoscopy if there is concern for colonic stricture. Reviewed, dictated and finalized at [facility]. Reviewed, dictated and finalized at [facility]. IMPRESSION: Postoperative change of the colon. Very prominent amount of fecal material in the colon, particularly the transver se and right colon. Consider barium enema or colonoscopy if there is concern fo r colonic stricture.
[2022-09-15 09:09] LABS: Basophils Percent Auto 0.3 % (0.2-1.2); Eosinophils Percent Auto 0.2 % (0-4.4); Hematocrit 40.8 % (37.0-47.0); Hemoglobin 13.2 g/dL (12.0-15.0); Immature Granulocyte Absolute 0.03 K/mm3 (0.00-0.031); Immature Granulocyte Percent A 0.2 % (0-0.5); Lymphocytes Absolute Auto 1.54 K/mm3 (0.9-3.2); Lymphocytes Percent Auto 12.4 % (18.3-44.2); Mean Corpuscular HGB Conc 32.4 g/dl (32-36); Mean Corpuscular Hemoglobin 30.2 pg (26-34); Mean Corpuscular Volume 93.4 fl (80-100); Mean Platelet Volume 9.3 fl (7.4-10.4); Monocytes Absolute Auto 0.9 K/mm3 (0.1-0.6); Neutrophils Absolute Auto 9.9 K/mm3 (1.3-6.7); Neutrophils Percent Auto 79.9 % (45.5-73.1); Platelet Count Result 282 k/mm3 (150-375); Red Blood Count 4.37 M/mm3 (4.2-5.4); Red Cell Distribution Width 12.4 % (11.5-14.5); White Blood Count 12.5 K/mm3 (4.5-10.0)
[2022-09-15 09:17] LABS: Alanine Aminotransferase 18 U/L (6-35); Albumin Level 4.5 g/dL (3.5-5.1); Alkaline Phosphatase 49 U/L (38-126); Anion Gap 6 mmol/L (8-16); Aspartate Amino Transferase 32 U/L (14-36); Bilirubin,Total 1.2 mg/dL (0.2-1.3); Blood Urea Nitrogen 7 mg/dL (7-17); Calcium 8.8 mg/dL (8.4-10.2); Carbon Dioxide 32 mmol/L (22-30); Chloride 99 mmol/L (98-107); Estimated CRCL calculation 75 ml/min; Estimated Glomerular Filt Rate > 60; Glucose 95 mg/dL (65-110); Lipase 36 U/L (23-300); Potassium 3.9 mmol/L (3.4-5.0); Sodium 137 mmol/L (137-145)
[2022-09-15 09:25] LABS: Appearance Urine Clear (Clear); Bacteria Urine None Seen /hpf; Bilirubin Urine 1+ (Negative); Blood Urine Negative (Negative); Color Urine Dark Yellow (Yellow); Glucose Urine UA Negative (Negative); Ketones Urine Trace mg/dL (Negative); Leukocyte Esterase Ur Trace LEU/UL (Negative); Nitrate Urine Negative (Negative); Non Pathogenic Casts 0-2; Protein Urine Negative (Negative); RBC Urine 0-2 /hpf (0-2); Specific Grav Ur 1.021 (1.001-1.035); Squamous Epithelial Cell Urine Few /hpf (Few); WBC Urine 0-5 /hpf
[2022-09-15 09:47] LABS: Add Urine Microscopic? YES
[2022-09-15 11:52] LABS: Pregnancy On Board Control Positive; Urine Pregnancy Test Negative
--- NOTE | 2022-09-15 13:16 | ED.GENADULT ---
HPI - General Adult General Chief complaint: Abdominal Pain Stated complaint: stomach pain Time Seen by Provider: 09/15/22 11:55 History of Present Illness HPI narrative: 36-year-old female presented to the emergency department for evaluation of lower abdominal cramping. Patient does have a prior history of colon resection at [facility] last year. Patient also states that last month she did have a miscarriage. Patient states that the bleeding and cramping have resolved from that. Patient does report decreased stools over the last few days. Patient denies any associated nausea or vomiting. Related Data Home Medications Medication Instructions Recorded Confirmed buprenorphine 15 mcg/hour weekly 1 patch transdermal WEEKLY 04/27/20 08/26/22 transdermal patch nortriptyline 25 mg capsule 25 mg PO DAILY 08/26/22 08/26/22 Allergies Allergy/AdvReac Type Severity Reaction Status Date / Time Penicillins Allergy Unknown Unknown Verified 09/15/22 08:41 Review of Systems Review of Systems: CONSTITUTIONAL: Denies fever, chills, or sweats. EYES: Denies visual changes, redness, or discharge. ENT: Denies rhinorrhea, congestion, sore throat, or otalgia. CARDIOVASCULAR: Denies chest pain, palpitations, or edema. RESPIRATORY: Denies cough or dyspnea. GASTROINTESTINAL: See HPI GENITOURINARY: Denies dysuria or hematuria. SKIN: Denies rash or itching. MUSCULOSKELETAL: Denies back pain, joint pain, or myalgia. NEUROLOGIC: Denies headache, numbness, or weakness. PSYCHIATRIC: Denies anxiety or depression. [facility] Past Medical History Medical History (Updated 09/15/22 @ 13:27 by Paulo Kirby MD) BMI 21.0-21.9, adult Chronic narcotic use Complex regional pain syndrome UTI (urinary tract infection) Surgical History Surgical History History of History of dilation and curettage Family History Family History Grandparent Diabetes mellitus Father No problems noted. Mother Thyroid activity decreased Sibling No problems noted. 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 HEAD: normocephalic, atraumatic. EYES: PERRLA/EOMI, conjunctivae clear. NOSE: Normal no drainage NECK: Supple. No adenopathy, no masses. RESPIRATORY: Airway patent, respirations nonlabored. Clear to auscultation bilaterally, no rales, rhonchi, wheezing. CARDIOVASCULAR: Regular rate and rhythm without murmurs rubs or gallops. ABDOMINAL: Soft, nondistended, normal bowel sounds, minimal right lower quadrant tenderness to palpation. MUSCULOSKELETAL: Moves all extremities. Strength/ROM intact, No edema, No calf tenderness. NEURO: Alert. Cranial nerves II through XII intact. Grossly intact SKIN: Warm, dry. Normal Color Course Course Emergency Course: Patient is afebrile with a minor leukocytosis. Patient's electrolytes are similar to her baseline. UA showed no evidence of urinary tract infection. CT scan showed prominent stool, no evidence of obstruction. Patient did suspect that she does have constipation. Patient was encouraged to have close follow-up with her surgeons and GI for possible colonoscopy for evaluation of stricture. Patient was encouraged to take medications to help with her underlying cons
== END 2022-09-15 14:06 | disposition home or self-care (01) ==
PROVIDERS: Emergency Medicine; Nurse Practitioner Family; Emergency Provider Emergency Medicine; PCP Family Medicine
DX: K59.00 Constipation, unspecified (principal); R10.9 Unspecified abdominal pain; Z87.440 Personal history of urinary (tract) infections; Z90.49 Acquired absence of other specified parts of digestive tract
CPT/HCPCS: 36415; 74177; 80053; 81001; 81025; 83690; 85025; 99284; Q9967

== ENCOUNTER 2022-12-12 10:20 | Emergency (ER) | payer BC, SELFPAY ==
--- NOTE | 2022-12-12 10:35 | ED.FEMALEGU ---
HPI - Female Genitourinary General Chief complaint: Urogenital-Female Stated complaint: uti symptoms Time Seen by Provider: 12/12/22 10:35 Source: patient Mode of arrival: ambulatory Limitations: no limitations History of Present Illness HPI Narrative: Patient is a 37-year-old female who presents with burning with urination, urinary frequency and pelvic pressure since yesterday. Patient has frequent UTIs with last 1 being the beginning of the month. Patient does not have urologist at this time. Denies any blood in urine, low back pain, fevers, chills, nausea, vomiting, diarrhea. MD elicited complaint: dysuria Related Data Home Medications Medication Instructions Recorded Confirmed buprenorphine 15 mcg/hour weekly 1 patch transdermal WEEKLY 04/27/20 08/26/22 transdermal patch nortriptyline 25 mg capsule 25 mg PO PRN PRN nerve pain 08/26/22 12/12/22 buprenorphine HCl 300 mcg buccal 300 mcg buccal BID 12/12/22 12/12/22 film ([place]) Allergies Allergy/AdvReac Type Severity Reaction Status Date / Time Penicillins Allergy Unknown Unknown Verified 12/12/22 11:09 Review of Systems Review of Systems: All systems reviewed & are unremarkable except as noted in HPI and below Constitutional: Constitutional: Denies chills, Denies fever(s), Denies headache(s), Denies malaise and Denies weakness Eyes: Eyes: Denies change in vision, Denies eye discharge and Denies irritation ENT: Denies otalgia, Denies headache(s), Denies nasal congestion, Denies nasal discharge, Denies sinus pain and Denies sore throat Cardiovascular: Cardiovascular: Denies chest pain, Denies edema, Denies palpitations and Denies dyspnea Respiratory: Respiratory: Denies cough and Denies dyspnea Gastrointestinal: Gastrointestinal: Denies abdominal pain, Denies diarrhea, Denies nausea and Denies vomiting Genitourinary: Genitourinary: Denies hematuria, Reports nocturia, Reports dysuria, Denies flank pain and Reports urinary urgency Musculoskeletal: Musculoskeletal: Denies back pain and Denies numbness Integumentary/Breasts: Skin/Breast: Denies pruritus and Denies rash Neurologic: Denies headache(s), Denies numbness and Denies weakness Psychiatric: Psychiatric: Reports no additional psychiatric complaints Endocrine: Endocrine: Denies palpitations PMFSH Past Medical History Medical History (Updated 12/12/22 @ 11:09 by Do Figueroa APRN) BMI 21.0-21.9, adult Chronic narcotic use Complex regional pain syndrome UTI (urinary tract infection) Surgical History Surgical History History of History of dilation and curettage Family History Family History Grandparent Diabetes mellitus Father No problems noted. Mother Thyroid activity decreased Sibling No problems noted. 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 There is no relevant family history pertinent to the presenting complaint. Exam Const: General: cooperative, healthy appearing, comfortable, no acute distress and well nourished Nutritional Appearance: well nourished Orientation/consciousness: patient oriented x3 HENMT: Head: normocephalic and atraumatic Ears: external ears normal Face/Nose/Sinu
[2022-12-12 10:42] VITALS: BP 112/72; PULSE 79; RESP 18; TEMP 36.8; O2SAT 98
== END 2022-12-12 11:26 | disposition home or self-care (01) ==
PROVIDERS: Emergency Provider Nurse Practitioner Family; PCP Family Medicine
DX: N39.0 Urinary tract infection, site not specified (principal)
CPT/HCPCS: 81003; 87077; 87086; 87088; 87186; 99213; G0463

== ENCOUNTER 2023-04-08 08:35 | Emergency (ER) | payer BC, SELFPAY ==
--- NOTE | ~2023-04-08 | CT_ITS ---
CT of the Abdomen and Pelvis: Indication: Abdominal pain Technique: 2.5 mm axial scans were obtained through the abdomen and pelvis following intravenous adm inistration of 100 cc of Omnipaque 350. Dose reduction technique was used on this scan by utilizing a utomated exposure control and iterative reconstruction technique. The dose-length product (DLP) was 2 33.47 mGy-cm. COMPARISON: 09/15/2022 Findings: Scans through the lung bases are unremarkable. The liver, spleen, pancreas, gallbladder, adrenals and kidneys are within normal limits. No evidence of aortic aneurysm. No lymphadenopathy. There is evidence of prior colonic anastomosis at the transverse colon region. There is a very large and of stool in the ascending and transverse colon, with abrupt caliber change at the splenic flexure region. The transition point is significantly distal to the anastomotic suture line. Appearance is s omewhat similar to prior exam. No distinct obstructing mass identified. Images through the pelvis were performed. Urinary bladder unremarkable. No adnexal mass evident. No a scites. Mild chronic anterior wedging deformity of L1 noted. Impression: Very large amount of stool in the ascending and transverse colon, with abrupt caliber change of the l arge bowel at the splenic flexure. Appearance is similar to prior exam. No visible obstructing mass. Colonic stricture is a consideration. Reviewed, dictated and finalized at location . Impression: Very large amount of stool in the ascending and transverse colon, with abrupt c aliber change of the large bowel at the splenic flexure. Appearance is similar to prior exam. No visible obstructing mass. Colonic stricture is a consideratio n.
[2023-04-08 08:39] VITALS: BP 106/76; PULSE 93; RESP 18; TEMP 36.4; O2SAT 100
[2023-04-08 08:54] LABS: Basophils Percent Auto 0.3 % (0.2-1.2); Hematocrit 40.4 % (37.0-47.0); Hemoglobin 12.9 g/dL (12.0-15.0); Immature Granulocyte Absolute 0.05 K/mm3 (0.00-0.031); Immature Granulocyte Percent A 0.3 % (0-0.5); Lymphocytes Absolute Auto 0.63 K/mm3 (0.9-3.2); Lymphocytes Percent Auto 4.3 % (18.3-44.2); Mean Corpuscular HGB Conc 31.9 g/dl (32-36); Mean Corpuscular Hemoglobin 29.8 pg (26-34); Mean Corpuscular Volume 93.3 fl (80-100); Monocytes Absolute Auto 0.4 K/mm3 (0.1-0.6); Monocytes Percent Auto 2.7 % (2.6-8.5); Neutrophils Absolute Auto 13.5 K/mm3 (1.3-6.7); Neutrophils Percent Auto 92.4 % (45.5-73.1); Platelet Count Result 273 k/mm3 (150-375); Red Blood Count 4.33 M/mm3 (4.2-5.4); Red Cell Distribution Width 12.1 % (11.5-14.5); White Blood Count 14.6 K/mm3 (4.5-10.0)
[2023-04-08 09:03] LABS: Alanine Aminotransferase 22 U/L (6-35); Alkaline Phosphatase 52 U/L (38-126); Anion Gap 9 mmol/L (8-16); Aspartate Amino Transferase 34 U/L (14-36); Bilirubin,Total 0.8 mg/dL (0.2-1.3); Blood Urea Nitrogen 10 mg/dL (7-17); Calcium 9.7 mg/dL (8.4-10.2); Carbon Dioxide 27 mmol/L (22-30); Chloride 102 mmol/L (98-107); Estimated CRCL calculation 66 ml/min; Estimated Glomerular Filt Rate > 60; Glucose 124 mg/dL (65-110); Lipase 38 U/L (23-300); Potassium 3.9 mmol/L (3.4-5.0); Sodium 138 mmol/L (137-145)
[2023-04-08 09:47] LABS: Appearance Urine Cloudy (Clear); Bacteria Urine 1+ /hpf; Bilirubin Urine Negative (Negative); Blood Urine Negative (Negative); Color Urine Dark Yellow (Yellow); Glucose Urine UA Negative (Negative); Ketones Urine 3+ mg/dL (Negative); Leukocyte Esterase Ur Trace LEU/UL (Negative); Nitrate Urine Negative (Negative); Non Pathogenic Casts 0-2; Protein Urine Trace mg/dL (Negative); Specific Grav Ur 1.024 (1.001-1.035); Squamous Epithelial Cell Urine Few /hpf (Few); WBC Urine 0-5 /hpf
[2023-04-08 09:48] LABS: Add Urine Microscopic? YES
[2023-04-08 10:09] VITALS: BP 103/63; PULSE 62; RESP 14; O2SAT 100
[2023-04-08] MEDS: ONDANSETRON INJ 4 MG/2 ML VIAL IV PUSH (10:20)
[2023-04-08] MEDS: HYDROmorphone HCL INJ (*CRX) 1 MG/ML SYR IV PUSH (10:20)
[2023-04-08] MEDS: SODIUM CHLORIDE 0.9% IV 1,000 ML 999 ML IV CONT (10:21)
--- NOTE | 2023-04-08 10:22 | ED.ABDPAIN ---
HPI - Abdominal Pain General Chief Complaint: Abdominal Pain Stated Complaint: ABD Pain Time Seen by Provider: 04/08/23 09:17 History of Present Illness HPI narrative: 37-year-old female presented the emergency department for evaluation of abdominal pain. Patient does have prior history of intussusception secondary to a mass within her colon. Patient states this was treated at [facility]. Patient then had a perforation of her bowel during a another colonoscopy and this was also treated at [facility]. Patient presents emergency department today complaining of increased abdominal pain. Patient has had some associated nausea and vomiting. Patient denies any urinary symptoms. Related Data Home Medications Medication Instructions Recorded Confirmed buprenorphine 15 mcg/hour weekly 1 patch transdermal WEEKLY 04/27/20 08/26/22 transdermal patch nortriptyline 25 mg capsule 25 mg PO PRN PRN nerve pain 08/26/22 12/12/22 buprenorphine HCl 300 mcg buccal 300 mcg buccal BID 12/12/22 12/12/22 film ([place]) Allergies Allergy/AdvReac Type Severity Reaction Status Date / Time Penicillins Allergy Unknown Unknown Verified 12/12/22 11:09 Review of Systems Review of Systems: All systems reviewed & are unremarkable except as noted in HPI and below PMFSH Past Medical History Medical History (Updated 04/08/23 @ 12:11 by Paulo Kirby MD) BMI 21.0-21.9, adult Chronic narcotic use Complex regional pain syndrome UTI (urinary tract infection) Surgical History Surgical History History of History of dilation and curettage Family History Family History Grandparent Diabetes mellitus Father No problems noted. Mother Thyroid activity decreased Sibling No problems noted. 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 HEAD: normocephalic, atraumatic. EYES: PERRLA/EOMI, conjunctivae clear. NOSE: Normal no drainage NECK: Supple. No adenopathy, no masses. RESPIRATORY: Airway patent, respirations nonlabored. Clear to auscultation bilaterally, no rales, rhonchi, wheezing. CARDIOVASCULAR: Regular rate and rhythm without murmurs rubs or gallops. ABDOMINAL: Soft, normal bowel sounds, nondistended, diffuse tenderness MUSCULOSKELETAL: Moves all extremities. Strength/ROM intact, No edema, No calf tenderness. NEURO: Alert. Cranial nerves II through XII intact. Grossly intact SKIN: Warm, dry. Normal Color Course Course Emergency Course: 37-year-old female present to the emergency permit for evaluation of diffuse abdominal pain. Patient is afebrile but does have a leukocytosis of 14.6. Patient's CMP is similar to her baseline. No evidence of urinary tract infection. Patient denies any urinary symptoms. Urine culture is pending. CT did show evidence of constipation and a possible colonic stricture. This is unchanged compared to her previous imaging. Admission versus transfer versus discharge to home was discussed with the patient the patient prefers to be discharged to home. Patient will be provided medications for nausea control and was also encouraged to start taking additional MiraLAX and mag citrate. Vital Signs Vital signs: Vital Signs Temperature 97.6
[2023-04-08 10:31] VITALS: BP 109/74; PULSE 52; RESP 14; O2SAT 100
[2023-04-08 11:30] VITALS: BP 108/68; PULSE 72; RESP 16; O2SAT 100
[2023-04-08 11:46] VITALS: PULSE 69; RESP 14; O2SAT 100
[2023-04-08] MEDS: KETOROLAC 15 MG/ML VIAL (*BKC) IV PUSH (11:49)
[2023-04-08 12:14] VITALS: BP 104/66; PULSE 79; RESP 16; TEMP 36.7; O2SAT 100
== END 2023-04-08 12:34 | disposition home or self-care (01) ==
PROVIDERS: Emergency Provider Emergency Medicine; PCP Family Medicine
DX: K59.00 Constipation, unspecified (principal)
CPT/HCPCS: 36415; 74177; 80053; 81001; 81025; 83690; 85025; 96361; 96374; 96375; 99284; J1170; J1885; J2405; J7030; Q9967

== ENCOUNTER 2023-08-09 11:12 | Emergency (ER) | payer BC, SELFPAY ==
[2023-08-09 11:20] VITALS: BP 103/68; PULSE 84; RESP 16; TEMP 36.2; O2SAT 100
--- NOTE | 2023-08-09 11:44 | ED.URI ---
HPI - URI/Sore Throat General Chief Complaint: Upper Respiratory Infection Stated Complaint: Sore Throat and Fever Time Seen by Provider: 08/09/23 11:30 Source: patient Mode of arrival: ambulatory Limitations: no limitations History of Present Illness HPI Narrative: Sonam is a 37-year-old female patient presenting to the clinic today with complaints of sore throat, body aches, and fever for the past 2 days. She reports highest fever was 101? F. Denies any cough or nasal congestion. MD elicited complaint: sore throat and nasal congestion Related Data Home Medications Medication Instructions Recorded Confirmed buprenorphine 15 mcg/hour weekly 1 patch transdermal WEEKLY 04/27/20 08/09/23 transdermal patch nortriptyline 25 mg capsule 25 mg PO PRN PRN nerve pain 08/26/22 08/09/23 buprenorphine HCl 300 mcg buccal 300 mcg buccal BID 12/12/22 08/09/23 film ([place]) Allergies Allergy/AdvReac Type Severity Reaction Status Date / Time Penicillins Allergy Unknown Unknown Verified 08/09/23 11:23 Review of Systems Review of Systems: Pertinent positives per HPI. Patient denies any rash, headache, visual changes, dizziness, cough, shortness of breath, chest pain, palpitations, nausea, vomiting, diarrhea, constipation, abdominal pain, or any urinary issues. [facility] Past Medical History Medical History BMI 21.0-21.9, adult Chronic narcotic use Complex regional pain syndrome UTI (urinary tract infection) Surgical History Surgical History History of History of dilation and curettage Family History Family History Grandparent Diabetes mellitus Father No problems noted. Mother Thyroid activity decreased Sibling No problems noted. 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 There is no relevant family history pertinent to the patient complaint. Exam Narrative: General: Well-developed, well nourished, in no apparent distress Head: Normocephalic, atraumatic Eyes: Pupils equally round and reactive to light bilaterally, EOM intact, sclera and conjunctive clear, no discharge, lids normal Ears: TMs intact and clear, ear canals clear, no drainage, grossly hearing normal. Nose: Nares patent, no discharge, no inflammation, no sinus tenderness. Mouth: Oral pharynx red with bilateral tonsillar enlargement right greater than left without lesions or masses, good dentition, MMM. Neck: Supple, trachea midline, enlargement of anterior cervical nodes, no thyroid masses or goiter palpable. Cardio: Regular rate and rhythm, s1 and s2 normal, no murmur appreciated. Resp: Clear to auscultation bilaterally, no rhonchi, rales, wheezing or rubs Course Course Emergency Course: Portions of this record may have been created with voice recognition software. Level of Care: Express Care Visit Vital Signs Vital signs: Vital Signs Temperature 36.2 C L 08/09/23 11:20 Pulse Rate 84 08/09/23 11:20 Respiratory Rate 16 08/09/23 11:20 Blood Pressure 103/68 08/09/23 11:20 Pulse Oximetry 100 08/09/23 11:20 Oxygen Delivery Room Air
== END 2023-08-09 11:53 | disposition home or self-care (01) ==
PROVIDERS: Emergency Provider Nurse Practitioner Family; PCP Family Medicine
DX: J02.9 Acute pharyngitis, unspecified (principal); Z20.822 Contact with and (suspected) exposure to COVID-19
CPT/HCPCS: 87081; 87426; 87804; 87880; 99213; G0463

== ENCOUNTER 2025-01-16 08:21 | Outpatient (CLI) | payer BC, SELFPAY ==
--- NOTE | ~2025-01-16 | MM_ITS ---
EXAMINATION: MM screening yemi BI w christiano HISTORY: Screening TECHNIQUE: Craniocaudal and mediolateral oblique 3-D tomosynthesis images were obtained and synthetic 2-D images were generated. CAD analysis was submitted and interpreted. COMPARISON: No prior mammogram is available for comparison at this institution. BREAST PARENCHYMAL COMPOSITION: Dense: The breasts are extremely dense, which lowers the sensitivity of mammography. FINDINGS: There is no evidence of suspicious mass, calcification, or architectural distortion to sugg est malignancy in either breast. There has been no suspicious interval change. IMPRESSION: 1. No mammographic evidence of malignancy. 2. Recommend routine screening mammography in one year. BI-RADS Category 1: Negative Reviewed, dictated and finalized at location []
--- OUTSIDE RECORDS SUMMARY | 2025-01-16 08:28 | XMS_ITS | Encounter Summary ---
Author Organization [facility] Address [address] [place] [address] Care Team Providers Care Basket Bottom Machine Operator Name Role Phone Nikos Brooks MD Primary Care Provider [phone] Encounter Details Date Type Department Care Team (Late st Contact Info) Description 08/08/2001 Outpatient Historical [facility] [address] [place] [address] Manuel Madsen MD [address] [place] [address] Social History Tobacco Use Types Packs/Day Years Used Date Smoking Tobacco: Never Assessed Comments Unknown Sex and Gender Information Value Date Recorded Sex Assigned at Not on file 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 [address] PCP - General Family Practice 06/27/20 documented as of this encounter
--- OUTSIDE RECORDS SUMMARY | 2025-01-16 08:28 | XMS_ITS | Encounter Summary ---
Author Organization [facility] Address [address] [place] [address] Care Team Providers Care Conference And Event Organiser Name Role Phone Nikos Brooks MD Primary Care Provider [phone] Encounter Details Date Type Department Care Team (Late st Contact Info) Description 08/24/2001 Outpatient Historical [facility] [address] [place] [address] Manuel Madsen MD [address] [place] [address] Social History Tobacco Use Types Packs/Day Years Used Date Smoking Tobacco: Never Assessed Comments Unknown Sex and Gender Information Value Date Recorded Sex Assigned at Not on file 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 [address] PCP - General Family Practice 06/27/20 documented as of this encounter
--- OUTSIDE RECORDS SUMMARY | 2025-01-16 08:28 | XMS_ITS | Encounter Summary ---
Author Organization [employer] Address 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 [address] PCP - General Family Practice 06/27/20 documented as of this encounter
--- OUTSIDE RECORDS SUMMARY | 2025-01-16 08:28 | XMS_ITS | Encounter Summary ---
Author Organization [facility] Address [address] [place] [address] Care Team Providers Care Chemical Engineering Intern Name Role Phone Nikos Brooks MD Primary Care Provider [phone] Encounter Details Date Type Department Care Team (Late st Contact Info) Description 05/28/[address] 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 Gender Identity Not on file Sexual Orientation Not on file documented as of this encounter Last Filed Vital Signs Vital Sign Reading Time Taken Comments Blood Pressure 110/70 05/28/2005 9:40 AM RIP SAW OPERATOR Pulse - - Temperature 36 C (96.8 F) 05/28/2005 9:40 AM RIP SAW OPERATOR Respiratory Rate - - Oxygen Saturation - - Inhaled Oxygen Concentration - - Weight 49 kg (108 lb) 05/28/2005 9:40 AM RIP SAW OPERATOR Height - - Body Mass Index - - documented in this encounter Plan of Treatment Not on file documented as of this encounter Visit Diagnoses Not on filedocumented in this encounter Additional Health Concerns Infection Onset Date Last Indicated Resolved Time R/O COVID-19 04/09/2023 04/09/2023 04/10/2023 12:2 4 AM CDT documented as of this encounter Care Teams Chemical Engineering Intern Relationship Specialty Start Date End Date Nikos Brooks MD [address] [place] [address] PCP - General Family Practice 06/27/20 documented as of this encounter
--- OUTSIDE RECORDS SUMMARY | 2025-01-16 08:28 | XMS_ITS | Encounter Summary ---
Author Organization [facility] Address [address] [place] [address] Care Team Providers Care Wellness Program Manager Name Role Phone Nikos Brooks MD Primary Care Provider [phone] Encounter Details Date Type Department Care Team (Late st Contact Info) Description 08/08/2001 Outpatient Historical [facility] [place] [address] [place] [address] Manuel Madsen MD [address] [place] [address] Social History Tobacco Use Types Packs/Day Years Used Date Smoking Tobacco: Never Assessed Comments Unknown Sex and Gender Information Value Date Recorded Sex Assigned at Not on file Legal 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 [address] PCP - General Family Practice 06/27/20 documented as of this encounter
--- OUTSIDE RECORDS SUMMARY | 2025-01-16 08:28 | XMS_ITS | Encounter Summary ---
Author Organization [facility] Address [address] [place] [address] Care Team Providers Care Biomedical Instrument Technician Name Role Phone Nikos Brooks MD Primary Care Provider [phone] Encounter Details Date Type Department Care Team (Late st Contact Info) Description 02/24/2006 Outpatient Historical [facility] Internal Medicine - [place] [address] [place] [address] Bernard Galvin MD [address] [facility] [address] [place] [address] Social History Tobacco Use Types Packs/Day Years Used Date Smoking Tobacco: Never Assessed Comments Unknown Sex and Gender Information Value Date Recorded Sex Assigned at Not on file Legal 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 Female 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 Gender Identity Not on file Sexual Orientation Not on file documented as of this encounter Last Filed Vital Signs Vital Sign Reading Time Taken Comments Blood Pressure 120/80 02/24/2006 3:25 PM CDT Pulse - - Temperature 36.2 C (97.1 F) 02/24/2006 3:25 PM CDT Respiratory Rate - - Oxygen Saturation - - Inhaled Oxygen Concentration - - Weight 49.4 kg (109 lb) 02/24/2006 3:25 PM CDT Height - - Body Mass Index - - documented in this encounter Plan of Treatment Not on file documented as of this encounter Visit Diagnoses Not on filedocumented in this encounter Additional Health Concerns Infection Onset Date Last Indicated Resolved Time R/O COVID-19 04/09/2023 04/09/2023 04/10/2023 12:2 4 AM CDT documented as of this encounter Care Teams Biomedical Instrument Technician Relationship Specialty Start Date End Date Nikos Brooks MD [address] [place] [address] PCP - General Family Practice 06/27/20 documented as of this encounter
--- OUTSIDE RECORDS SUMMARY | 2025-01-16 08:28 | XMS_ITS | Encounter Summary ---
Author Organization [facility] Address [address] [place] [address] Care Team Providers Care Business Operations Consultant Name Role Phone Nikos Brooks MD Primary Care Provider [phone] Encounter Details Date Type Department Care Team (Late st Contact Info) Description 03/18/2006 Outpatient Historical [facility] Internal Medicine - [place] [address] [place] [address] Bernard Galvin MD [address] [facility] [address] [place] [address] Social History Tobacco Use Types Packs/Day Years Used Date Smoking Tobacco: Never Assessed Comments Unknown Sex and Gender Information Value Date Recorded Sex Assigned at Not on file 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 Gender Identity Not on file Sexual Orientation Not on file documented as of this encounter Last Filed Vital Signs Vital Sign Reading Time Taken Comments Blood Pressure 106/70 03/18/2006 9:00 AM CDT Pulse 60 03/18/2006 9:00 AM CDT Temperature - - Respiratory Rate - - Oxygen Saturation - - Inhaled Oxygen Concentration - - Weight 50.8 kg (112 lb) 03/18/2006 9:00 AM CDT Height - - Body Mass Index - - documented in this encounter Plan of Treatment Not on file documented as of this encounter Visit Diagnoses Not on filedocumented in this encounter Additional Health Concerns Infection Onset Date Last Indicated Resolved Time R/O COVID-19 04/09/2023 04/09/2023 04/10/2023 12:2 4 AM CDT documented as of this encounter Care Teams Business Operations Consultant Relationship Specialty Start Date End Date Nikos Brooks MD [address] [place] [address] PCP - General Family Practice 06/27/20 documented as of this encounter
--- OUTSIDE RECORDS SUMMARY | 2025-01-16 08:28 | XMS_ITS | Encounter Summary ---
Author Organization [facility] Address [address] [place] [address] Care Team Providers Care Sock Knitting Machine Operator Name Role Phone Nikos Brooks MD Primary Care Provider [phone] Encounter Details Date Type Department Care Team (Late st Contact Info) Description 06/15/2002 Outpatient Historical [facility] Support [facility]. (Adt Cardiology[facility]) [address] 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 [address] PCP - General Family Practice 06/27/20 documented as of this encounter
--- OUTSIDE RECORDS SUMMARY | 2025-01-16 08:28 | XMS_ITS | Patient Health Record ---
Author Organization [facility] Address [address] [id number] Care Team Providers Care Motor Vehicle Representative Name Role Phone Priscila Bolanos Unavailable Unavailable Allergies Allergen (clinical drug ingredient) Drug/Non Drug Allergy documented on EMR Reaction Allergy Type Onset Date Status penicillin Unknown Drug Allergy Active Reason For Referral No Information Medications Medication SIG (Take, Route, Frequency, Duration) Notes Start Date End Date Status Cymbalta 30 MG Capsule Delayed Release Particles 1 capsule Orally Twice a day; Duration: 30 day(s) 08/20/2014 Active Social History Tobacco Use: Social History Observation Description Date Details (start date - stop date) Never Smoker NA - NA Social History Drugs/Alcohol: Social Info Question Answer Notes Alcohol Screen (Audit-C) Did you have a drink containing alcohol in the past year? No Points 0 Interpretation Negative Drugs Have you used drugs other than those for medical reasons in the past 12 months? No Tobacco Use: Social Info Question Answer Notes Tobacco Use/Smoking Are you a nonsmoker Plan Of Treatment No Information Insurance Providers Payer Name Payer Address Payer Phone Subscriber Number Group Number Insured Name Patient Relationship to Insured Coverage Start Date Coverage End Date BCBS [address] [place] [address] [id number] Sonam Bennett Self - patient is the insured 4 Medical (General) History Surgical History Surgery Date(Month/Year) pudendal nerve surgeries x 2
--- OUTSIDE RECORDS SUMMARY | 2025-01-16 08:29 | XMS_ITS | Encounter Summary ---
Author Organization [facility] Address [address] 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 [address] PCP - General Family Practice 06/27/20 documented as of this encounter
--- OUTSIDE RECORDS SUMMARY | 2025-01-16 08:29 | XMS_ITS | Clinical Summary ---
Author Organization [facility] Address [address] [place] [address] Care Team Providers Care Game Engineer Name Role Phone Nikos Brooks MD Primary Care Provider [phone] Allergies Active Allergy Reactions Criticality Noted Date Comments Penicillins Unknown 04/11/2016 As a child Medications Belbuca 300 mcg film 07/11/2019 Active [id number] cb,[id number]-[id number]-zan- dha 27-1-50-250 mg combo pack Take by mouth Active Active Problems Problem Noted Date Diagnosed Date Encounter for preconception consultation Threatened labor at term 06/29/2016 Pain in pelvis 05/05/2011 Allergic rhinitis 07/16/2009 Surgical History Surgery Date Site/Laterality Comments DILATION AND CURETTAGE OF UTERUS 2006,2015,2019 SECTION 06/21/2016 - 06/20/2017 [facility] Medical History Medical History Date Comments Nerve pain 2011,2012 Pudendal neuralgia 2011,2012 Social History Tobacco Use Types Packs/Day Years Used Date Smoking Tobacco: Never Alcohol Use Standard Drinks/Week Comments Never 0 (1 standard drink = 0.6 oz pur e alcohol) AUDIT-C Answer Date Recorded Frequency of Alcohol Consumption Never 08/07/2019 Average Number of Drinks Not on file 020 Frequency of Binge Drinking Not on file 07/22 Personal Safety Answer Date Recorded Getting School Help Needed Not on file 09/02 Comments Unknown Sex and Gender Information Value Date Recorded Sex Assigned at Not on file Legal Sex Female 10:25 PM SCHOOL PSYCHOLOGY SPECIALIST Gender Identity Not on file Sexual Orientation Not on file Obstetrics History Last Filed Vital Signs Vital Sign Reading Time Taken Comments Blood Pressure 102/64 08/07/2019 9:58 AM SCHOOL PSYCHOLOGY SPECIALIST Pulse 75 08/07/2019 9:58 AM SCHOOL PSYCHOLOGY SPECIALIST Temperature 36.6 C (97.8 F) 08/07/2019 9:58 AM SCHOOL PSYCHOLOGY SPECIALIST Respiratory Rate - - Oxygen Saturation 98% 08/07/2019 9:58 AM SCHOOL PSYCHOLOGY SPECIALIST Inhaled Oxygen Concentration - - Weight 56.2 kg (124 lb) 08/07/2019 9:58 AM SCHOOL PSYCHOLOGY SPECIALIST Height 154.9 cm (5' 1) 08/07/2019 9:58 AM SCHOOL PSYCHOLOGY SPECIALIST Body Mass Index 23.43 08/07/2019 9:58 AM SCHOOL PSYCHOLOGY SPECIALIST Plan of Treatment Not on file Insurance ANTH TRADITIONAL ANTH ACCESS ANTHEM TRADITIONAL Care Teams Game Engineer Relationship Specialty Start Date End Date Nikos Brooks MD PCP - General Family Medicine 07/21/19
--- OUTSIDE RECORDS SUMMARY | 2025-01-16 08:29 | XMS_ITS | Encounter Summary ---
Author Organization [facility] Address [address] [place] [address] Care Team Providers Care Admissions Consultant Name Role Phone Nikos Brooks MD Primary Care Provider [phone] Encounter Details Date Type Department Care Team (Late st Contact Info) Description 02/10/2007 Outpatient Historical [facility] Internal Medicine - [place] [address] [place] [address] Bernard Galvin MD [address] [facility] [address] Social History Tobacco Use Types Packs/Day Years Used Date Smoking Tobacco: Never Assessed Comments Unknown Sex and Gender Information Value Date Recorded Sex Assigned at Not on file Legal 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 [id number] PCP - General Family Practice 06/27/20 documented as of this encounter
--- OUTSIDE RECORDS SUMMARY | 2025-01-16 08:29 | XMS_ITS | Clinical Summary ---
Author Organization [facility] Address [address] [place] [address] Care Team Providers Care Manager Intelligence Name Role Phone Nikos Brooks MD Primary Care Provider [phone] Allergies Active Allergy Reactions Criticality Noted Date Comments Penicillins Unknown 04/11/2016 As a child Medications Bimatoprost 0.03 % Drops with Applicator APPLY ONE DROP TO BRUSH AND APPLY TO EYELID AT BASE OF UPPER EYELASHES ONCE DAILY 2 Active tretinoin (RETIN-A) 0.025 % Cream APPLY THIN LAYER TO FACE AT NIGHT 2 [address] BU[address]EN[address]PHINE HCL SUBLINGUAL Place 300 mcg under tongue 2 times daily. Active nortriptyline HCl (NORTRIPTYLINE ORAL) Take 60 mg by mouth daily at bedtime. Active polyethylene glycol 3350 (MIRALAX) 17 gram/dose Powder Take 1 Scoop (17 Grams) by mouth 2 times daily. 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 Colonic stricture 04/10/2023 Chronic pain 04/10/2023 Leukocytosis (leucocytosis) 04/10/2023 S/P partial resection of colon 04/10/2023 Constipation 04/10/2023 Hypertrophic scar 01/28/2023 Threatened labor at term 06/29/2016 Allergic rhinitis 07/16/2009 Intussusception of colon Adenomatous polyp of transverse colon Resolved Problems Problem Noted Date Diagnosed Date Resolved Date Depressive disorder, not elsewhere classified 02/11/20 07 07/16/2009 Predominant disturbance of emotions 02/10/2007 07/16/2009 Loss of weight 02/10/2007 02/26/2009 Acute upper respiratory infe ctions of unspecified site 05/28/2005 02/26/2009 Dizziness and giddiness 02/20/2005 0901/2009 Headache(784.0) 02/20/2005 02/26/2009 Nausea with vomiting 02/20/2005 009 Routine general medical exam ination at a health care facility 03/18/2004 02/26/2009 Encounters Date Type Department Care Team Description 01/09/2025 External Device Data [facility] ABSTRACTION Provider, Abstract 01/03/2025 External Device Data [facility] ABSTRACTION Provider, Abstract 01/03/2025 External Device Data [facility] ABSTRACTION Provider, Abstract 01/03/2025 External Device Data [facility] ABSTRACTION Provider, Abstract 12/06/2024 External Device Data [facility] ABSTRACTION Provider, Abstract 12/05/2024 External Device Data [facility] ABSTRACTION Provider, Abstract 11/21/2024 External Device Data [facility] ABSTRACTION Provider, Abstract 11/14/2024 External Device Data [facility] ABSTRACTION Provider, Abstract 11/09/2024 External Device Data [facility] ABSTRACTION Provider, Abstract 11/08/2024 External Device Data [facility] ABSTRACTION Provider, Abstract 11/07/2024 External Device Data ST[facility] ABSTRACTION Provider, Abstract from Last 3 Months Immunizations Immunization Administration Dates Next Due (ADACEL/BOOSTRIX)(10 YR UP) TDAP VACCINE, 0.5ML, IM 04/21/2016 Influenza Seasonal Unspecified Formulation IM Family History Medical History Relation Name Comments Colon Cancer Neg Hx Social History Tobacco Use Types Packs/Day Years Used Date Smoking Tobacco: Never Smokeless Tobacco: Never Tobacco Cessation:Counseling Given: Not Answered Alcohol Use Standard Drinks/Week Comments No 0 (1 standard drink = 0.6 oz pur e alcohol) occ Comments No Sex and Gender Information Value Date Recorded Sex Assigned at Not on file Legal Sex Female 4:33 AM PROFESSOR OF BIOLOGY Gender Identity Not on file Sexual Orientation Not on file Last Filed Vital Signs Vital Sign Reading Time Taken Comments Blood Pressure 101/61 08/11/2024 12:33 PM PROFESSOR OF BIOLOGY Pulse 79 08/11/2024 12:33 PM PROFESSOR OF BIOLOGY Temperature 36.4 C (97.5 F) 08/11/2024 12:11 PM PROFESSOR OF BIOLOGY Respiratory Rate 12 08/11/2024 12:33 PM PROFESSOR OF BIOLOGY Oxygen Saturation 100% 08/11/2024 12:33 PM PROFESSOR OF BIOLOGY Inhaled Oxygen Concentration - - Weight 59.4 kg (131 lb) 08/11/2024 11:14 AM PROFESSOR OF BIOLOGY Height 157.5 cm (5' 2) 08/11/2024 11:14 AM PROFESSOR OF BIOLOGY Body Mass Index 23.96 08/11/2024 11:14 AM PROFESSOR OF BIOLOGY Plan of Treatment Health Maintenance Due Date Last Done Comments HPV VACCINES (1 - 3-dose series) 09/17/1999 HEPATITIS B VACCINES (1 of 3 - 19+ 3-dose series) 09/17/2003 BREAST CANCER SCREENING 2024 INFLUENZA VACCINE (#1) 2025 03/21/2016 PAP SMEAR 06/08/2025 06/08/2022, 12/11/2009 DTAP/TDAP/TD VACCINES (2 - T d or Tdap) 04/21/2026 04/21/2016 CERVICAL CANCER SCREENING 06/08/2027 HPV/Cotest (21-29) 06/08/2027 06/08/2022 HPV/Cotest (30-65) 06/08/2027 06/08/2022 COLORECTAL SCREENING 08/11/2027 08/11/2024, 08/11/2024, 04/12/2023, Additional history exists Medical Devices Implanted Type Area Entry Level Financial Analyst Device Identifier Shelf Expiration Date Model / Serial / Lot Clip Hemoclip Instinct 7fr [id number] - [id number] Implanted:Qty: 1 on 08/21/2021 by Alberto Mcgill MD at [facility] Clip N/A: Perianal [employer] [id number] 03/26/2024 [id number] / / [id number] Clip Hemoclip Instinct 7fr [id number] - [id number] Implanted:Qty: 1 on 08/21/2021 by Alberto Mcgill MD at [facility] Clip N/A: Perianal [employer]OOK- ENDOSCOPY - [facility] [id number] 03/26/2024 [id number] / / [id number] Clip Endo Resolution 360 235cm [id number] - [id number] Implanted:Qty: 1 on 04/12/2023 by Dakotah Rios MD at [facility] Clip N/A: Perianal [employer]- ENDOSCOPY [id number] 02/17/2026 [id number] / / [id number] Clip Endo Resolution 360 235cm [id number] - [id number] Implanted:Qty: 1 on 04/12/2023 by Dakotah Rios MD at [facility] Clip N/A: Perianal [employer] ENDOSCOPY [id number] 02/17/2026 [id number] / / [id number] Procedures Procedure Name Priority Date/Time Associated Diagnosis Comments COLONOSCOPY REPORT 08/11/2024 12 :12 PM PROFESSOR OF BIOLOGY CERV/VAG CYTO SCREEN PAP W/HPV Routine 06/08/2022 10:47 AM PROFESSOR OF BIOLOGY Screening for malignant neoplasm of cervix from Last 3 Months or Most Recently Relevant to Health Maintenance Results * COLONOSCOPY REPORT (08/11/2024 12:12 PM PROFESSOR OF BIOLOGY) Narrative Procedure Note Dakotah Rios MD - 08/11/2024 12:12 PM CST [facility] Endoscopy [facility] Endoscopy Patient Name: Sonam Bennett Procedure Date: 08/11/2024 Date of : 1985 Age: 38 Attending MD: Dakotah Rios MD, Procedure: Colonoscopy Indications: High risk colon cancer surveillance: Personal history of adenoma (10 mm or greater in size) Patient Profile: 38y/oF here for surveillance colonoscopy. 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 Seen by me in hosptial 05/2023 for obstipation, possible stricture. Colonoscopy with poor prep, but significant inflammation and ulceration in descending colon just distal to anastomosis. Biopsies with acute inflammtion, thought to be stercoral. Now on miralax daily, normal bowel movements. Providers: Dakotah Rios MD Referring MD: Nikos Brooks MD Medicines: Monitored Anesthesia Care Procedure: Informed consent was obtained for the procedure, including moderate sedation after risks were discussed. Based on the pre-procedure assessment, including review of the patient's medical history, medications, allergies, and review of systems, the patient was deemed to be an appropriate candidate for sedation. A timeout was performed. Continuous ECG monitoring, pulse oximetry, blood pressure monitoring, and direct observation were performed. The Colonoscope was introduced through the anus and advanced to the cecum, identified by appendiceal orifice and ileocecal valve. The colonoscopy was technically difficult and complex due to post-surgical anatomy and significant looping. Successful completion of the procedure was aided by abdominal pressure, particularly at the side/side anastomosis. The patient tolerated the procedure well. The quality of the bowel preparation was good. The ileocecal valve, appendiceal orifice, and rectum were photographed. Estimated Blood Loss: Estimated blood loss: none. Findings: The perianal and digital rectal examinations were normal. Retroflexion in the right colon was performed. There was evidence of a prior etdz-mg-vnvx colo-colonic anastomosis in the transverse colon. This was patent and was characterized by healthy appearing mucosa. The anastomosis was traversed. A 9 mm polyp was found in the descending colon. The polyp was semi-pedunculated. The polyp was removed with a hot snare. Resection and retrieval were complete. There is no endoscopic evidence of erythema, inflammation or ulcerations in the descending colon. The exam was otherwise without abnormality on direct and retroflexion views. Complications: No immediate complications. Impression: - Patent rrdd-lt-xpoy colo-colonic anastomosis, characterized by healthy appearing mucosa. - One 9 mm polyp in the descending colon, removed with a hot snare. Resected and retrieved. - The examination was otherwise normal on direct and retroflexion views. Recommendation: - Patient has a contact number available for emergencies. The signs and symptoms of potential delayed complications were discussed with the patient. Return to normal activities tomorrow. Written discharge instructions were provided to the patient. - Discharge patient to home (ambulatory). - Resume previous diet. - Continue present medications. - Await pathology results. - Repeat colonoscopy in 3 years for surveillance. - Recommend 2 day prep. - I will message you through [facility] when your pathology results. Dakotah Rios MD 08/11/2024 12:12:46 PM This report has been signed electronically. Number of Addenda: 0 Procedure Date: 08/11/2024 10:55:04 AM [id number] [facility] [address] [place] [address] Dakotah Rios MD GI PROCEDURE ORDERABLES Lindsey l Result * CERV/VAG CYTO SCREEN PAP W/HPV (06/08/2022 10:47 AM PROFESSOR OF BIOLOGY) CLINICAL INFORMATION [facility] Comment:None given LAST MENSTRUAL PERIOD [facility] Comment:NONE GIVEN PREV PAP: [facility] Comment:NONE GIVEN PREV BX: [facility] Comment:NONE GIVEN SOURCE [facility] Comment:Endocervix ADEQUACY: [facility] Comment: Satisfactory for evaluation. Endocervical/transformation zone component present. Age and/or menstrual status not provided PAP INTERP [facility] Comment:Negative for intraep ithelial lesion or malignancy. COMMENT (PAP TEST) [facility] Comment: This Pap test has been evaluated with computer assisted technology. SHEET METAL PRODUCTION WORKER: [facility] Comment: MVB, CT(ASCP) CT Screening Location: [place] [address] [address] [place] [address] EXPLANATORY NOTE [facility] Comment: EXPLANATORY NOTE: The Pap is a screening test for cervical cancer. It is not a diagnostic test and is subject to false negative and false positive results. It is most reliable when a satisfactory sample, regularly obtained, is submitted with relevant clinical findings and history, and when the Pap result is evaluated along with historic and current clinical information. HPV E6/E7 Not Detected Not Detected [facility] Comment: Methodology: Grinder Operator Tool-Mediated Amplification This assay detects E6/E7 viral messenger RNA (mRNA) from 14 high-risk HPV types (16,18,31,33,35,39,45,51,52,56,58,59,66,68). Cervical sources are required for HPV testing. If a vaginal source from a patient who has had a total hysterectomy with removal of cervix was submitted, please contact the testing laboratory for alternative testing options. For additional information, please refer to http://education.Here On Biz/faq/GXM727t2 (This link if provided for information/ educational purposes only.) Test Performed at: [facility] [address] [address] Luc James D.O., MPH [facility] ENDOCERVIX / Unknown 06/08/2022 10:47 AM PROFESSOR OF BIOLOGY 06/09/2022 12:23 AM PROFESSOR OF BIOLOGY us Dakotah Pratt MD PATHOLOGY/CYTOLOGY ORDERABLE S Final Result [facility] [phone] [facility] [phone] [phone] from Last 3 Months or Most Recently Relevant to Health Maintenance Insurance [facility] FEDERAL RX [facility] [employer] Advance Directives For more information, please contact: [phone] * Full Code (Latest Code Status on File) Date Activated Date Inactivated Comments 08/11/2024 11:15 AM 08/11/2024 3:16 PM * Full Code Date Activated Date Inactivated Comments 04/10/2023 8:32 AM 04/12/2023 4:39 PM * Full Code Date Activated Date Inactivated Comments 08/21/2021 10:25 PM 08/24/2021 6:31 PM * Full Code Date Activated Date Inactivated Comments 08/21/2021 10:25 PM 08/21/2021 10:25 PM * Full Code Date Activated Date Inactivated Comments 08/21/2021 5:42 PM 08/21/2021 10:25 PM Care Teams Manager Intelligence Relationship Specialty Start Date End Date Nikos Brooks MD [address] [place] [address] PCP - General Family Practice 06/27/20
--- OUTSIDE RECORDS SUMMARY | 2025-01-16 08:29 | XMS_ITS | Encounter Summary ---
Author Organization [facility] Address [address] [place] [address] Care Team Providers Care Assembly Operator Name Role Phone Nikos Brooks MD Primary Care Provider [phone] Encounter Details Date Type Department Care Team (Late st Contact Info) Description 02/10/2007 Outpatient Historical [facility] Internal Medicine - [place] [address] [place] [address] Bernard Galvin MD [address] [facility] [place] [address] Social History Tobacco Use Types Packs/Day Years Used Date Smoking Tobacco: Never Assessed Comments Unknown Sex and Gender Information Value Date Recorded Sex Assigned at Not on file Legal Sex Female 4:33 AM CAR HOSTLER Gender Identity Not on file Sexual Orientation Not on file documented as of this encounter Plan of Treatment Not on file documented as of this encounter Visit Diagnoses Not on filedocumented in this encounter Additional Health Concerns Infection Onset Date Last Indicated Resolved Time R/O COVID-19 04/09/2023 04/09/2023 04/10/2023 12:2 4 AM CDT documented as of this encounter Care Teams Assembly Operator Relationship Specialty Start Date End Date Nikos Brooks MD [address] [place] [id number] PCP - General Family Practice 06/27/20 documented as of this encounter
--- OUTSIDE RECORDS SUMMARY | 2025-01-16 08:29 | XMS_ITS | Encounter Summary ---
Author Organization [facility] Address [address] [place] [address] Care Team Providers Care Collection Administrator Name Role Phone Nikos Brooks MD Primary Care Provider [phone] Encounter Details Date Type Department Care Team (Late st Contact Info) Description 03/18/2004 Outpatient Historical [facility] Internal Medicine - [place] [address] [place] [address] Bernard Galvin MD [address] [facility] [place] [address] Social History Tobacco Use Types Packs/Day Years Used Date Smoking Tobacco: Never Assessed Comments Unknown Sex and Gender Information Value Date Recorded Sex Assigned at Not on file Legal Sex Female 4:33 AM STORE STOCK HELP Gender Identity Not on file Sexual Orientation Not on file documented as of this encounter Last Filed Vital Signs Vital Sign Reading Time Taken Comments Blood Pressure 102/64 03/18/2004 1:00 PM CDT Pulse 88 03/18/2004 1:00 PM CDT Temperature - - Respiratory Rate - - Oxygen Saturation - - Inhaled Oxygen Concentration - - Weight 49.4 kg (109 lb) 03/18/2004 1:00 PM CDT Height - - Body Mass Index - - documented in this encounter Plan of Treatment Not on file documented as of this encounter Visit Diagnoses Not on filedocumented in this encounter Additional Health Concerns Infection Onset Date Last Indicated Resolved Time R/O COVID-19 04/09/2023 04/09/2023 04/10/2023 12:2 4 AM CDT documented as of this encounter Care Teams Collection Administrator Relationship Specialty Start Date End Date Nikos Brooks MD [address] [place] [address] PCP - General Family Practice 06/27/20 documented as of this encounter
--- OUTSIDE RECORDS SUMMARY | 2025-01-16 08:29 | XMS_ITS | Encounter Summary ---
Author Organization [facility] Address [address] [place] [address] Care Team Providers Care Basic Sciences Professor Name Role Phone Nikos Brooks MD Primary Care Provider [phone] Encounter Details Date Type Department Care Team (Late st Contact Info) Description 08/26/2007 Outpatient Historical [facility] Internal Medicine Medical Section [facility] [address] [address] Maliha Meier ANP NO ADDRESS ON FILE Social History Tobacco Use Types Packs/Day Years Used Date Smoking Tobacco: Never Assessed Comments Unknown Sex and Gender Information Value Date Recorded Sex Assigned at Not on file Legal Sex Female 4:33 AM REHAB NURSE Gender Identity Not on file Sexual Orientation Not on file documented as of this encounter Plan of Treatment Not on file documented as of this encounter Visit Diagnoses Not on filedocumented in this encounter Additional Health Concerns Infection Onset Date Last Indicated Resolved Time R/O COVID-19 04/09/2023 04/09/2023 04/10/2023 12:2 4 AM CDT documented as of this encounter Care Teams Basic Sciences Professor Relationship Specialty Start Date End Date Nikos Brooks MD [address] [place] [address] PCP - General Family Practice 06/27/20 documented as of this encounter
--- OUTSIDE RECORDS SUMMARY | 2025-01-16 08:29 | XMS_ITS | Referral Summary ---
Author Organization [facility] Address [address] [place] [place] [address] Care Team Providers Care Rail Grinder Name Role Phone Nikos Brooks MD Primary Care Provider [phone] Allergies Active Allergy Reactions Criticality Noted Date Comments Penicillins Unknown 04/11/2016 As a child Medications Belbuca 300 mcg film 07/11/2019 Active UBV42-dfzg cb,az-xgqzz-qlc- dha 27-1-50-250 mg combo pack Take by mouth Active Active Problems Problem Noted Date Diagnosed Date Encounter for preconception consultation 020 Threatened labor at term 06/29/2016 Pain in pelvis 05/05/2011 Allergic rhinitis 07/16/2009 Social History Tobacco Use Types Packs/Day Years [...] on file Legal Sex Female 10:25 PM AIR CONDITIONING INSTALLER SUPERVISOR Gender Identity Not on file Sexual Orientation Not on file Last Filed Vital Signs Vital Sign Reading Time Taken Comments Blood Pressure 102/64 08/07/2019 9:58 AM AIR CONDITIONING INSTALLER SUPERVISOR Pulse 75 08/07/2019 9:58 AM AIR CONDITIONING INSTALLER SUPERVISOR Temperature 36.6 C (97.8 F) 08/07/2019 9:58 AM AIR CONDITIONING INSTALLER SUPERVISOR Respiratory Rate - - Oxygen Saturation 98% 08/07/2019 9:58 AM AIR CONDITIONING INSTALLER SUPERVISOR Inhaled Oxygen Concentration - - Weight 56.2 kg (124 lb) 08/07/2019 9:58 AM AIR CONDITIONING INSTALLER SUPERVISOR Height 154.9 cm (5' 1) 08/07/2019 9:58 AM AIR CONDITIONING INSTALLER SUPERVISOR Body Mass Index 23.43 08/07/2019 9:58 AM AIR CONDITIONING INSTALLER SUPERVISOR Plan of Treatment Not on file Insurance [facility] TRADITIONAL [facility] ACCESS [employer]AD[employer] Care Teams Rail Grinder Relationship Specialty Start Date End Date Nikos Brooks MD PCP - General Family Medicine 07/21/19
--- OUTSIDE RECORDS SUMMARY | 2025-01-16 08:29 | XMS_ITS | Encounter Summary ---
Author Organization [facility] Address [address] [place] [address] Care Team Providers Care Recreational Vehicle Resort Manager Name Role Phone Nikos Brooks MD Primary Care Provider [phone] Encounter Details Date Type Department Care Team (Late st Contact Info) Description 07/16/2003 Outpatient [place] [address] [facility] [address] [place] [address] Social History Tobacco Use Types Packs/Day Years Used Date Smoking Tobacco: Never Assessed Comments Unknown Sex and Gender Information Value Date Recorded Sex Assigned at Not on file Legal Sex Female 4:33 AM PULVERIZER TENDER Gender Identity Not on file Sexual Orientation Not on file documented as of this encounter Plan of Treatment Not on file documented as of this encounter Visit Diagnoses Not on filedocumented in this encounter Additional Health Concerns Infection Onset Date Last Indicated Resolved Time R/O COVID-19 04/09/2023 04/09/2023 04/10/2023 12:2 4 AM CDT documented as of this encounter Care Teams Recreational Vehicle Resort Manager Relationship Specialty Start Date End Date Nikos Brooks MD [address] [place] [place] [address] PCP - General Family Practice 06/27/20 documented as of this encounter
--- OUTSIDE RECORDS SUMMARY | 2025-01-16 08:29 | XMS_ITS | Encounter Summary ---
Author Organization [employer] Address [address] 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 TOBACCO USE Patient does not currently use tobacco. MEDICATIONS: Patient is taking no medications at present. CHIEF COMPLAINT migraine -fu - er /maxalt no help -wt loss and stress - ct was nl - no blood wk done HISTORY: 21 yo with headaches. Has been to urgent care multiple times for headaches. 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 Lives in [facility]. Headaches started after the new job. Hasn't had any sinus problems. No colds. When takes antibiotics gets yeast infections. Head CT was normal. Was also treated for dehydration. Has lost 10 pounds. Eating orange, turkey sandwhich, mcdonalds. Not trying to lose weight. Also having trouble sleeping. doesn't have to take anything to sleep. HISTORY: Lots of stress and anxiety with the job. 784.0-HEADACHE CURRENT PROBLEM LIST: 465.9 UPPER RESPIRATORY INFECTION 780.4 VERTIGO/DIZZINESS 784.0 HEADACHE 787.01 NAUSEA AND VOMITING V70.0 ROUTINE GENERAL MEDICAL EXAMINATION CURRENT MEDICATION LIST: CURRENT ALLERGY LIST: NKDA ROS: GENERAL: Normal activity and energy level, no change in appetite. No major weight gain or loss. Nomalaise, chills, fever, diaphoresis.. ENT: No hearing loss, epistaxis, hoarseness or dysphagia. No sinus congestion.. ENDOCRINE: No heat or cold intolerance, no excessive thirst.. CARDIAC: No chest pain, palpitations, orthopnea, dyspnea on exertion, or paroxysmal nocturnal dyspnea.. RESPIRATORY: No dyspnea, cough, hemoptysis or wheezing.. : No frequency, urgency, hematuria or dysuria.. GI: No abdominal pain, nausea, vomiting, diarrhea, constipation, melena, or hematochezia.. NEUROLOGIC: See HISTORY OF PRESENT ILLNESS. PSYCHIATRIC: See HISTORY OF PRESENT ILLNESS. + SIGECAPS SOCIAL HISTORY: TOBACCO USE: Has no significant smoking history. OCCUPATION: . working at [employer] PHYSICAL EXAMINATION: CONSTITUTIONAL: GENERAL APPEARANCE: Healthy appearing patient in no distress. NECK/THYROID: Trachea midline. No thyroid enlargement, tenderness, or mass. No supraclavicular or cervical adenopathy. RESPIRATORY: Clear to auscultation and percussion. Normal respiratory effort. CARDIOVASCULAR: CARDIAC: Regular rhythm. No murmurs, rubs, or gallops. ARTERIAL: No aortic bruits. EDEMA/VARICOSITIES OF EXTREMITIES: No edema or varicosities. GASTROINTESTINAL: ABDOMEN: Soft, non-tender, without masses. Bowel sounds active. LIVER/SPLEEN/KIDNEY: No hepatosplenomegaly, tenderness or nodularity. Kidneys not palpable. ASSESSMENT/PLAN: 784.0-HEADACHE related to stress. did not respond to maxalt. not classic for migraine. ct of the head was negative. will start fiorinal just to break the cycle and then the patient will use PRN. LAB ORDERS: Order number: [id number] Test Ordered: CBC W/ DIFFERENTIAL 3150 Order number: [id number] Test Ordered: CMP & LIVER PANEL 1295 Order number: [id number] Test Ordered: TSH (REFLEX FREE T4/FREE T3) 1727 311-DEPRESSION will start Lexapro 308.0-ACUTE REACTION TO STRESS MEDICATIONS: FIORINAL ORAL CAPSULE CONVENTIONAL 50-325-40 MG, 1 Four Times A Day, As Needed, 90 Dispensed, 30 Duration/Days Supply, status: NEW PRESCRIPTION, 02/10/2007. LEXAPRO ORAL TABLET 10 MG, 1 Every Day x 14 days, then 20 mg PO QDAY, 30 Dispensed, 3 Fills, 30 Duration/Days Supply, status: NEW PRESCRIPTION, 02/10/2007. 783.21-LOSS OF WEIGHT will check TSH. The patient is not anorhexic and does not have a desire to lose weight. Hyperthyroidism is a possibility, especially given other symptoms. Electronically Signed by: Jake Aviles MD on January Electronically Signed by: Bernard Galvin MD on Friday, June 29, 2007 documented in this encounter Plan of Treatment Not on file documented as of this encounter Visit Diagnoses Not on filedocumented in this encounter Additional Health Concerns Infection Onset Date Last Indicated Resolved Time R/O COVID-19 04/09/2023 04/09/2023 04/10/2023 12:2 4 AM CDT documented as of this encounter Care Teams Snailer Relationship Specialty Start Date End Date Nikos Brooks MD [address] [place] [address] PCP - General Family Practice 06/27/20 documented as of this encounter
--- OUTSIDE RECORDS SUMMARY | 2025-01-16 08:29 | XMS_ITS | Encounter Summary ---
Author Organization [facility] Address 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 [address] PCP - General Family Practice 06/27/20 documented as of this encounter
--- OUTSIDE RECORDS SUMMARY | 2025-01-16 08:29 | XMS_ITS | Encounter Summary ---
Author Organization [facility] Address [address] [place] [address] Care Team Providers Care Organic Search Lead Name Role Phone Nikos Brooks MD Primary Care Provider [phone] Encounter Details Date Type Department Care Team (Late st Contact Info) Description 02/20/2005 Outpatient Historical [facility] Internal Medicine - [place] [address] [place] [address] Miguel Cohen MD [address] 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 Gender Identity Not on file Sexual Orientation Not on file documented as of this encounter Last Filed Vital Signs Vital Sign Reading Time Taken Comments Blood Pressure 108/80 02/20/2005 3:15 PM CDT Pulse - - Temperature 36.2 C (97.2 F) 02/20/2005 3:15 PM CDT Respiratory Rate - - Oxygen Saturation - - Inhaled Oxygen Concentration - - Weight 48.1 kg (106 lb) 02/20/2005 3:15 PM CDT Height - - Body Mass Index - - documented in this encounter Plan of Treatment Not on file documented as of this encounter Visit Diagnoses Not on filedocumented in this encounter Additional Health Concerns Infection Onset Date Last Indicated Resolved Time R/O COVID-19 04/09/2023 04/09/2023 04/10/2023 12:2 4 AM CDT documented as of this encounter Care Teams Organic Search Lead Relationship Specialty Start Date End Date Nikos Brooks MD [address] [place] [address] PCP - General Family Practice 06/27/20 documented as of this encounter
--- OUTSIDE RECORDS SUMMARY | 2025-01-16 08:29 | XMS_ITS | Encounter Summary ---
Author Organization [facility] Address [address] [place] [address] Care Team Providers Care Supervisor Drying And Softening Name Role Phone Nikos Brooks MD Primary Care Provider [phone] Encounter Details Date Type Department Care Team (Latest Contact Info) Description 02/10/2007 Outpatient Historical [facility] Internal Medicine - [place] [address] [place] [address] Bernard Galvin MD [address] 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 Gender Identity Not on file Sexual Orientation Not on file documented as of this encounter Plan of Treatment Not on file documented as of this encounter Procedures Procedure Name Priority Date/Time Associated Diagnosis Comments TSH WITH REFLEX FT4 AND FT3 Routine 02/10/2007 11:16 AM CDT CBC WITH DIFFERENTIAL Routine 02/10/2007 11:16 AM CDT CBC WITH DIFFERENTIAL Routine 02/10/2007 11:16 AM CDT COMPREHENSIVE METABOLIC PANEL Routine 02/10/2007 11:16 AM CDT documented in this encounter Results * CBC WITH DIFFERENTIAL (02/10/2007 11:16 AM CDT) NEUTROPHILS 63 45 - 70 % INTERFAC E SYSTEM LYMPHOCYTES 26 16 - 45 % INTERFAC E SYSTEM MONOCYTES 9 3 - 13 % INTERFACE SYSTEM EOSINOPHILS 1 0 - 7 % INTERFAC E SYSTEM BASOPHILS 0 0 - 2 % INTERFACE SYSTEM NEUTROPHIL ABSOLUTE 6.20 1.90 - 7.00 K/uL INTERFACE SYSTEM LYMPHOCYTE ABSOLUTE 2.57 0.70 - 4.50 K/uL INTERFACE SYSTEM MONOCYTE ABSOLUTE 0.89 0.10 - 1.30 K/uL INTERFACE SYSTEM EOSINOPHIL ABSOLUTE 0.14 0.00 - 0.70 K/uL INTERFACE SYSTEM BASOPHILS ABSOLUTE 0.03 0.00 - 0.20 K/uL INTERFACE SYSTEM 02/10/2007 11:1 6 AM CDT us Bernard Galvin MD HEMATOLOGY ORDERABLES Edited Performing Organization Address City/State/[facility] Co de Phone Number INTERFACE SYSTEM Refer to clinic/hospital department * CBC WITH DIFFERENTIAL (02/10/2007 11:16 AM CDT) WBC 9.8 4.0 - 9.8 K/uL INTERFACE SYSTEM RBC 4.48 3.90 - 4.90 M/uL INTERFACE SYSTEM HEMOGLOBIN 13.1 11.8 - 14.8 g/dL INTERFACE SYSTEM HEMATOCRIT 38.6 35.5 - 44.0 % INTERFACE SYSTEM MCV 86.2 82.0 - 99.0 fL INTERFACE SYSTEM MCH 29.2 27.2 - 32.6 pg INTERFACE SYSTEM MCHC 33.9 31.5 - 35.5 % INTERFACE SYSTEM RDW 13.9 11.5 - 14.5 % INTERFACE SYSTEM RDW-STDEV 43.3 37.1 - 48.7 fL INTERFACE SYSTEM PLATELETS 283 140 - 350 K/uL INTERFACE SYSTEM MPV 11.2 9.3 - 12.4 fL INTERFACE SYSTEM 02/10/2007 11:1 6 AM CDT us Bernard Galvin MD HEMATOLOGY ORDERABLES Edited INTERFACE SYSTEM Refer to clinic/hospital department * TSH WITH REFLEX FT4 AND FT3 (02/10/2007 11:16 AM CDT) TSH 1.34 0.27 - 4.20 uU/mL INTERFACE SYSTEM 02/10/2007 11:1 6 AM CDT Bernard Galvin MD CHEMISTRY ORDERABLES Edited Performing Organization Address City/State/[facility] Co de Phone Number INTERFACE SYSTEM Refer to clinic/hospital department * (ABNORMAL) COMPREHENSIVE METABOLIC PANEL (02/10/2007 11:16 AM CDT) GLUCOSE 79 65 - 99 mg/dL INTERFACE SYSTEM CREATININE 0.80 0.51 - 0.95 mg/dL INTERFACE SYSTEM CALCIUM 8.9 8.4 - 10.2 mg/dL INTERFACE SYSTEM ALKALINE PHOSPHATASE 54 35 - 104 U/L INTERFACE SYSTEM AST 21 12 - 32 U/L INTERFACE SYSTEM ALT 22 0 - 31 U/L INTERFACE SYSTEM TOTAL PROTEIN 6.7 6.3 - 8.6 g/dL INTERFACE SYSTEM ALBUMIN 4.4 3.4 - 4.8 g/dL INTERFACE SYSTEM BILIRUBIN TOTAL 0.2 0.2 - 1.0 mg/dL INTERFACE SYSTEM BILIRUBIN DIRECT 0.1 0.0 - 0.3 mg/dL INTERFACE SYSTEM BUN 8 6 - 20 mg/dL INTERFACE SYSTEM SODIUM 137 135 - 145 mmol/L INTERFACE SYSTEM POTASSIUM 3.4(L) 3.5 - 4.9 mmol/L INTERFACE SYSTEM CHLORIDE 103 96 - 108 mmol/L INTERFACE SYSTEM CO2 26 22 - 30 mmol/L INTERFACE SYSTEM GFR, >60 >=60 mL/min/1. 7 sq meter INTERFACE SYSTEM GFR >60 >=60 mL/min/1. 7 sq meter INTERFACE SYSTEM Comment: Estimated GFR rate interpretative information for both Americans and non- Americans is available on the [facility] Intranet at: [email or web address] Select: Lab Policies and Procedures Select: Reference Ranges - GFR 02/10/2007 11:1 6 AM CDT us Bernard Galvin MD CHEMISTRY ORDERABLES Edited INTERFACE SYSTEM Refer to clinic/hospital department documented in this encounter Visit Diagnoses Diagnosis Headache(784.0)- Primary Headache documented in this encounter Additional Health Concerns Infection Onset Date Last Indicated Resolved Time R/O COVID-19 04/09/2023 04/09/2023 04/10/2023 12:2 4 AM CDT documented as of this encounter Care Teams Supervisor Drying And Softening Relationship Specialty Start Date End Date Nikos Brooks MD [address] [place] [address] PCP - General Family Practice 06/27/20 documented as of this encounter
--- OUTSIDE RECORDS SUMMARY | 2025-01-16 08:29 | XMS_ITS | Encounter Summary ---
Author Organization [employer] Address 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 [address] PCP - General Family Practice 06/27/20 documented as of this encounter
--- OUTSIDE RECORDS SUMMARY | 2025-01-16 08:29 | XMS_ITS | Patient Health Record ---
Author Organization [facility] Address [address] [place] [address] Care Team Providers Care Emanations Analysis Technician Name Role Phone Radha Blake Unavailable [phone] Sotero Menchaca Unavailable [phone] Lorrie Oneil PA-C Unavailable Bernarda Sheth Unavailable [phone] Leopoldo Blake Unavailable [phone] Allergies Allergen (clinical drug ingredient) Drug/Non Drug Allergy documented on EMR Reaction Allergy Type Onset Date Status Penicillin Other Drug Allergy Active Results Component Value Reference Range Notes First Opinion Profil e Reviewed date:08/01/2024 02:05:44 PM Interpretation: Performing Lab:[facility] (CLIA#: [id number]), [address] [place] [address], Director - Tonja Powell Notes/Report: Analyzed at [facility] (CLIA#: [id number]) - [address] [place] [address] - Statistician Theoretical: Tonja Alvarez Certifying Transit Coach Operator: Venice Jean (Remote [id number]) These tests were developed and their performance characteristics determined by [facility]. They have not been cleared or approved by the [place] Food and Drug Administration. Nortrip Ur CMP 128 >=10 ng/mL COMPLIANT: Te st result is consistent and expected with prescribed drug. Buprenorphine Ur CMP 51 >=1 ng/mL COMPLIA NT: Test result is consistent and expected with prescribed drug. BioDetect EXPECTED Test result is consistent with routinely analyzed human urine. 6MAM Ur Ql Cfm <10 >=10 ng/mL NONE DETECTED Amphetamines Ur Ql Cfm <100 >=100 ng/mL NONE DETECTED Benzodiaz Ur Ql Cfm <50 >=50 ng/mL NONE DET ECTED Buprenorphine Ur Ql Cfm >=1 >=1 ng/mL POSI TIVE Norbuprenorphine Ur Cfm-mCnc 28 >=2.5 ng/mL POSITIVE Buprenorphine Ur Cfm-mCnc 22 >=1 ng/mL PO SITIVE BZE Ur Ql Cfm <50 >=50 ng/mL NONE DETECTED Fentanyl+Norfentanyl Ur Ql Cfm <5 >=5 ng/mL NONE DETECTED Gabapentin Ur Ql <5 >=5 mcg/mL NONE DETECT ED Carisoprodol+Meprob Ur Ql Scn <200 >=200 ng/mL NONE DETECTED Methadone Ur Ql Cfm <200 >=200 ng/mL NONE DET ECTED Meperidine Ur Ql Cfm <100 >=100 ng/mL NONE DE TECTED Opiates Ur Ql Cfm <100 >=100 ng/mL NONE DETEC MAURISIO Pregabalin(Lyrica) Ur Ql Cfm <5 >=5 mcg/mL NONE DETECTED Tramadol Ur Ql Cfm <100 >=100 ng/mL NONE DETE CTED Creat Ur-mCnc 100.9 20 - 370 mg/dL NORMAL Creatinine and pH are performed for specimen validity and not diagnostic purposes. pH Ur 7.60 4.5 - 9.0 NORMAL Creatinine and pH are performed for specimen validity and not diagnostic purposes. Alcohol Metabolites Ur Ql Cfm <200 >=200 ng/mL NONE DETECTED Ethyl sulfate Ur Cfm-mCnc <200 >=200 ng/mL NO NE DETECTED Tricyclics Ur Ql Cfm >=10 >=10 ng/mL POSITIV E Nortrip Ur Cfm-mCnc 128 >=10 ng/mL POSITIVE Synthetic Stimulants Ur Ql Cfm <1 >=1 ng/mL NONE DETECTED TICKET CLERK Not Otherwise Specified Ur Ql Cfm <1 >=1 ng/mL NONE DETECTED Synthetic Cannabinoids Ur Ql Cfm <1 >=1 ng/m L NONE DETECTED Hallucinogens/Dissociatives Ur Ql Cfm <1 >=1 ng/mL NONE DETECTED It Architecture Consultant Benzodiazepines Ur Ql Cfm <1 >=1 ng/mL NONE DETECTED It Architecture Consultant Opioids Ur Ql Cfm <1 >=1 ng/mL N ONE DETECTED THC Ur Ql Scn <20 >=20 ng/mL NONE DETECTED Reason For Referral No Information Medications Medication SIG (Take, Route, Frequency, Duration) Notes Start Date End Date Status Naloxone HCl 4 MG/0.1ML 1 spray Nasally as needed for opioid overdose emergency. Call 911; Duration: 30 days 04/26/2024 Active Belbuca 300 mcg 1 film buccally every 12 hours; Duration: 30 days Please fill today 12/21/24 12/21/2024 Active Nortriptyline HCl 25 mg 1 capsule Oral t wice per day 30 days; Duration: 30 days Active Tretinoin 0.025 % External; Duration: 30 Days Active Bimatoprost 0.03 % APPLY ONE DROP TO BRUSH AND APPLY TO EYELID AT BASE OF UPPER EYELASHES External; Duration: 30 Days Active Problems Problem Type SNOMED Code ICD Code Onset Dates Problem Status W/U Status Risk Notes Problem Lumbosacral plexus lesion (1899795) Lumbosacral plexus disorders (G54.1) Active confirmed Problem 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 Problem Pain in female pelvis (378271568) Pelvic pain in female (R10.2) Active confirmed Vital Signs Heart Rate 94 /min 07/05/2024 Blood pressure diastolic 74 mm Hg 07/05/2024 Height-cm 157.48 cm 12/21/2024 Weight-kg 56.7 kg 12/21/2024 Height 5ft 2in in 12/21/2024 Blood pressure systolic 114 mm Hg 07/05/2024 Weight 125 lbs 12/21/2024 BMI 22.86 kg/m2 12/21/2024 Encounters Encounter Location Date Provider Diagnosis [facility] [address] [place] [phone] 02/24/2024 Bernarda Sheth Lumbosacral plexus disorders G54.1 ; Pelvic pain in female R10.2 ; 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 and intermediate use of drug Z79.899 [facility] [address] [place] [address] 03/30/2024 Lorrie Oneil Lumbosacral plexus disorders G54.1 ; Pelvic pain in female R10.2 ; 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 and intermediate use of drug Z79.899 [facility] [address] [facility] [address] [place] [address] 04/26/2024 Bernarda Sheth Lumbosacral plexus disorders G54.1 ; Pelvic pain in female R10.2 and intermediate use of drug Z79.899 [facility] [address] [facility] [address] [place] [address] 05/22/2024 Bernarda Sheth Pelvic pain in femal e R10.2 and Lumbosacral plexus disorders G54.1 [facility] [address] [place] [address] [address] [place] [address] 07/05/2024 Bernarda Sheth Lumbosacral plexus disorders G54.1 ; Pelvic pain in female R10.2 ; 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 and intermediate use of drug Z79.899 [facility] [address] [place] [address] [address] [place] [address] 08/02/2024 Bernarda Sheth Pelvic pain in femal e R10.2 ; Lumbosacral plexus disorders G54.1 ; terminal carman use of drug Z79.899 and 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 [facility] [address] [place] [address] [address] [place] [address] 09/14/2024 Lorrie Gaytall Lumbosacral plexus disorders G54.1 ; Pelvic pain in female R10.2 ; 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 and intermediate use of drug Z79.899 [facility] [address] [place] [address] [address] [place] [address] 10/17/2024 Bernarda Sheth Lumbosacral plexus disorders G54.1 ; Pelvic pain in female R10.2 ; 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 and intermediate use of drug Z79.899 [facility] [address] [place] [address] [address] [place] [address] 11/21/2024 Bernarda Sheth Lumbosacral plexus disorders G54.1 ; Pelvic pain in female R10.2 ; 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 and intermediate use of drug Z79.899 [facility] [address] [place] [address] 12/21/2024 Bernarda Sheth Pelvic pain in femal e R10.2 ; 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 and terminal carman use of drug Z79.899 [facility] [address] [place] [address] 02/24/2024 Radha Hayden [facility] [address] [place] [address] 03/30/2024 Leopoldo Blake [facility] [address] [place] [address] 04/26/2024 Sotero Menchaca [facility] [address] [place] [address] 05/22/2024 Radhanathaniel RobHayden [facility] [address] [place] [address] 07/05/2024 Sotero Menchaca [facility] [address] [place] [address] 08/02/2024 Sotero Menchaca [facility] [address] [place] [address] 09/14/2024 Leopoldo Blake [facility] [address] [place] [address] 10/17/2024 Radha Hayden [facility] [address] [place] [address] 11/21/2024 Radha Hayden [facility] [address] [place] [address] 12/21/2024 Radha Hayden [facility] [address] [place] [address] 03/29/2024 Leopoldo Blake [facility] [address] [place] [address] 03/29/2024 Leopoldo Blake Assessments Encounter Date Diagnosis (ICD Code) Assessment Notes Treatment Notes Treatment Clinical Notes Section Notes 02/24/2024 Pelvic pain in female (ICD-10 - R10.2) Refill for controlled substance sent to supervising physician to be filledContinue home stretching and at home exercise program as toleratedFollow-u p in one month for med check, sooner if needed 03/30/2024 Lumbosacral plexus disorders (ICD-10 - G54.1) Prescription for controlled substance sent to supervising physician for renewal 02/24/2024 Lumbosacral plexus disorders (ICD-10 - G54.1) 04/26/2024 Lumbosacral plexus disorders (ICD-10 - G54.1) Refill for controlled substance sent to supervising physician to be filled Nortriptyline refilled today Continue home stretching and at home exercise program as tolerated Follow-up in one month for med check, sooner if needed 04/26/2024 Pelvic pain in female (ICD-10 - R10.2) 05/22/2024 Lumbosacral plexus disorders (ICD-10 - G54.1) 05/22/2024 Pelvic pain in female (ICD-10 - R10.2) Refill for controlled substance sent to supervising physician to be filled Continue home stretching and at home exercise program as tolerated Follow-up in one month for med check, sooner if needed 07/05/2024 Lumbosacral plexus disorders (ICD-10 - G54.1) Refill for controlled substance sent to supervising physician to be filled Nortriptyline refill sent to pharmacy Continue home stretching and at home exercise program as tolerated Follow-up in one month for med check, sooner if needed 07/05/2024 Pelvic pain in female (ICD-10 - R10.2) 08/02/2024 Lumbosacral plexus disorders (ICD-10 - G54.1) 08/02/2024 Pelvic pain in female (ICD-10 - R10.2) Refill for controlled substance sent to supervising physician to be filled Continue home stretching and at home exercise program as tolerated Follow-up in one month for med check, sooner if needed 09/14/2024 Lumbosacral plexus disorders (ICD-10 - G54.1) Prescription for controlled substance sent to supervising physician for renewal 10/17/2024 Lumbosacral plexus disorders (ICD-10 - G54.1) Refill for controlled substance sent to supervising physician to be filled Continue home stretching and at home exercise program as tolerated Follow-up in one month for med check, sooner if needed 11/21/2024 Lumbosacral plexus disorders (ICD-10 - G54.1) Refill for controlled substance sent to supervising physician to be filled Refill of nortriptyline sent to pharmacy Continue home stretching and at home exercise program as tolerated Follow-up in one month for med check, sooner if needed 11/21/2024 Pelvic pain in female (ICD-10 - R10.2) 12/21/2024 Other specified mononeuropathies (ICD-10 - G58.8) 12/21/2024 Pelvic pain in female (ICD-10 - R10.2) Refill for controlled substance sent to supervising physician to be filled Continue home stretching and at home exercise program as tolerated Follow-up in one month for med check, sooner if needed 12/21/2024 terminal carman use of drug (ICD-10 - Z79.899) 11/21/2024 Other specified mononeuropathies (ICD-10 - G58.8) 09/14/2024 Pelvic pain in female (ICD-10 - R10.2) 10/17/2024 Pelvic pain in female (ICD-10 - R10.2) 03/30/2024 Pelvic pain in female (ICD-10 - R10.2) 08/02/2024 intermediate use of drug (ICD-10 - Z79.899) 07/05/2024 Other specified mononeuropathies (ICD-10 - G58.8) 04/26/2024 intermediate use of drug (ICD-10 - Z79.899) 02/24/2024 Other specified mononeuropathies (ICD-10 - G58.8) 02/24/2024 terminal carman use of drug (ICD-10 - Z79.899) 03/30/2024 Other specified mononeuropathies (ICD-10 - G58.8) 07/05/2024 terminal carman use of drug (ICD-10 - Z79.899) 08/02/2024 Other specified mononeuropathies (ICD-10 - G58.8) 10/17/2024 Other specified mononeuropathies (ICD-10 - G58.8) 09/14/2024 Other specified mononeuropathies (ICD-10 - G58.8) 11/21/2024 intermediate use of drug (ICD-10 - Z79.899) 09/14/2024 terminal carman use of drug (ICD-10 - Z79.899) 10/17/2024 terminal carman use of drug (ICD-10 - Z79.899) 03/30/2024 terminal carman use of drug (ICD-10 - Z79.899) 03/30/2024 Other Learning About How to Have a Healthy Back material was published 07/05/2024 Other Learning About How to Have a Healthy Back material was published 10/17/2024 Other Body Mass Index : Care Instructions material was published, High Blood Pressure: Care Instructions material was published, Learning About How to Have a Healthy Back material was published Plan Of Treatment Pending Test Test Name Order Date EtS (Alcohol Metabolite) - Urine 025 QMP Plus D/L - Urine 07/05/2024 Synthetic Stimulants 07/05/2024 It Architecture Consultant Benzodiazepines 07/05/2024 Synthetic Cannabinoids 07/05/2024 It Architecture Consultant Opioids 07/05/2024 Hallucinogens/Dissociatives 07/05/2024 TICKET CLERK Other 07/05/2024 Marijuana - Urine 07/05/2024 PainComp Medication Compliance - Urine 0 07/05/2024 [facility] Required Information 07/05/2024 Next Appt Details Provider Name:Bernarda lopez, 01/17/2025 08:15:00 AM, [address] [place] [address], [address] [place] [address], [phone], Insurance Providers Payer Name Payer Address Payer Phone Subscriber Number Group Number Insured Name Patient Relationship to Insured Coverage Start Date Coverage End Date [facility] [address] [place] [phone] [id number] Sonam Bennett Self - patient is the insured 4 Medical (General) History Medical History History ICD Code insomnia Surgical History Surgery Date(Month/Year) pudendal nerve entrapment release x 2 Shoulder Surgery 2006- Left shoulder nevaeh coty- torn rotator cuff 2008- [facility] surgery Hospitalization History Reason Date(Month/Year) no hospitalization since last visit
== END 2025-01-16 08:22 | disposition home or self-care (01) ==
LOC: ANHIMG 08:23
PROVIDERS: PCP Family Medicine; Visit Provider Student in an Organized Health Care Education/Training Program
DX: Z12.31 Encounter for screening mammogram for malignant neoplasm of breast (principal)
CPT/HCPCS: 77063; 77067

== ENCOUNTER 2025-04-21 09:49 | Emergency (ER) | payer BC, SELFPAY ==
--- OUTSIDE RECORDS SUMMARY | 2025-04-16 04:00 | XMS_ITS ---
Author Organization [facility] Address [address] [place] [address] Care Team Providers Care Handling Tech Name Role Phone Bernarda Sheth [phone] Allergies Allergen (clinical drug ingredient) Drug/Non Drug Allergy documented on EMR Reaction Allergy Type Onset Date Status Penicillin Other Drug Allergy Active REASON FOR VISIT MEDS/ XRAYS Medications Medication SIG (Take, Route, Frequency, Duration) Notes Start Date End Date Status Nortriptyline HCl 25 mg 1 capsule Oral t wice per day 30 days; Duration: 30 days Active Belbuca 300 mcg 1 film buccally every 12 hours; Duration: 30 days Do not fill until 03/23/25. 03/15/2025 Active Bimatoprost 0.03 % APPLY ONE DROP TO BRUSH AND APPLY TO EYELID AT BASE OF UPPER EYELASHES External; Duration: 30 Days Active Naloxone HCl 4 MG/0.1ML 1 spray Nasally as needed for opioid overdose emergency. Call 911; Duration: 30 days 04/26/2024 Active Tretinoin 0.025 % External; Duration: 30 Days Active Problems Problem Type SNOMED Code ICD Code Onset Dates Problem Status W/U Status Risk Notes Problem Right knee pain (298900683889 105) Right knee pain (M25.561) Active confirmed Vital Signs Blood pressure systolic 96 mm Hg 04/16/20 25 Blood pressure diastolic 63 mm Hg 025 Heart Rate 76 /min 04/16/2025 Height 5ft 2in in 04/16/2025 Weight 125 lbs 04/16/2025 BMI 22.86 kg/m2 04/16/2025 Height-cm 157.48 cm 04/16/2025 Weight-kg 56.7 kg 04/16/2025 Encounters Encounter Location Date Provider Diagnosis [facility] [address] [place] [address] [address] [place] [address] 04/16/2025 Bernarda Sheth Lumbosacral plexus disorders G54.1 ; Pelvic pain in female R10.2 ; 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 ; snf use of drug Z79.899 and Right knee pain M25.561 Assessments Encounter Date Diagnosis (ICD Code) Assessment Notes Treatment Notes Treatment Clinical Notes Section Notes 04/16/2025 Lumbosacral plexus disorders (ICD-10 - G54.1) 04/16/2025 Pelvic pain in female (ICD-10 - R10.2) 04/16/2025 Other specified mononeuropathies (ICD-10 - G58.8) 04/16/2025 snf use of drug (ICD-10 - Z79.899) 04/16/2025 Right knee pain (ICD-10 - M25.561) 04/16/2025 Other Learning About Low Back Pain material was published Plan Of Treatment Treatment Notes Assessment Notes Other Learning About Low B ack Pain material was published Next Appt Details Provider Name:Bernarda Glez john, 05/09/2025 02:15:00 PM, [id number] [place] [address], [address], [place], [address], Progress Notes * Sonam BENNETT CDOB:[birth year] (39 yo F)Acc No.[id number]:04/16/2025 Progress Notes Patient: Christa GIL Sonam Schmidt Appointment Provider: Deidre Sheth NP :1985 A ge:39 Y S ex:Female Date:04/16/2025 Address:[facility] [address], [place], [id number] Subjective: * Chief Complaints: * 1 . MEDS/ XRAYS. * HPI: * Established Patient: Established Patient Questionnaire: 1 . Are you currently taking a Blood Thinner Medication? N o 2 . Do you have an allergy to I.V. Contrast or Shellfish? N o 3 . List any changes to medical history. (eg; Falls, Test, Scans, Blood Work, and Hospitalizations) N one 6 . What is your Pain Level today? (1-10, Scroll and select one) 4 7 . Where is your pain located? L eft Arm,Right Arm,Left Hand,Right Hand 8 . After your last visit, what Percentage of improvement did you experience? 0 9 . Are you doing Physical Therapy, Chiropractic, or Massage Therapy? N o 1 0. Are you doing an at home Exercise Program? N o 1 1. What activities or positions increase your Pain? (Scroll to select one or multiple) S itting 1 2. What activities or positions decrease your Pain? (Scroll to select one or multiple) O ther 1 3. How would you describe your Pain? (Scroll to select one or multiple) S tabbing,Throbbing,Burning 1 4. Are you having difficulty sleeping? N o 1 5. When was the last time you had your blood drawn? (Please enter your best estimate) 2 025 1 6. When was your last Mammogram? (Please put N/A if you are male, for Females please put the best Estimate or Never.) 2 025 1 7. When was your last Colonoscopy? (Please put the best Estimate or Never.) 2 025 1 8. Do you need any refills on your medications today? Y es 1 9. Any changes to your medications or allergies since your last visit? N o 2 0. Are you Diabetic? N o 2 1. Do you suffer from Constipation? N o * Pain Management:: Sonam Bennett is a 39 year old female who presents today for a m edication renewal and follow-up. 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 She has had pudendal nerve release s 2011 and 2014. She had 100% relief of pain that returned when she was with first child. She has done physical therapy, interventional treatments and medications. She is back in office working. She is up to date on blood work and mammogram. She states she does get a colonoscopy yearly. In the past, did have a large benign polyp mass removed. She now gets them yearly as a preventative. We will get updated x-rays today and patient to schedule yearly MD visit. Patient states 2 weeks ago, she was exercising at the gym and was doing some squats and states a few minutes later after being done, she felt pain in the back of her right knee. She has been icing the area and elevating it. She is still doing her normal activity and exercising. She has noticed now the pain radiates to the medial aspect of her right knee. She feels like the pain has not improved over the last 2 weeks, feels worse today. She has never injured that knee in the past. She denies any low back pain. Did get x-ray of right knee today. No fracture or tumors seen. We will plan to update 4x2x4 x-rays next visit. Did discuss scheduling yearly MD visit. She plans to schedule with Dr. Menchaca. Patient rates her pain 4/10, left glute, bilateral feet. She describes the pain as stabbing, burning, a nd throbbing. She denies loss of bowel or bladder control, numbness or tingling in groin. She schedules pudendal blocks when needed which are helpful. She has tried nerve stimulators in the past, nothing seemed to help. Did discuss Sprint PNS, plans to discuss with Dr. Menchaca at yearly MD visit. S he is renewed on Belbuca 300 mcg films every 12 hours she uses nortriptyline 1 to 2 capsules at bed. PDMP checked: 03/15/25 Last refill: 02/23/25 Last Narcan script updated: 04/26/24. * ROS: G eneral/Constitutional: Denies Change in appetite, Chills, Fatigue, Fever or Lightheadedness. ENT: Denies Tinnitus or Dysphagia. Ophthalmologic: Denies Blurred vision or change in vision. Neurological: denies gait abnormality, balance difficulty, dizziness, or loss of strength Psychological: denies depressed mood or change in mood Skin: denies skin rash . * Medical History: I nsomnia. * Surgical History: p udendal nerve entrapment release x 2 , Shoulder Surgery 2006- Left shoulder surgery- torn rotator cuff , 2008- LEEP surgery . * Hospitalization/Major Diagno stic Procedure: n o hospitalization since last visit . * Family History: F ather: alive 64 yrs, skin cancer. M other: alive 60 yrs. * Social History: * Established Patient: S moking D o you smoke? N o Form Scores C ESD-R PMQ-R GPCOG Date 0 02/15/2025 C ESD-R Score 0 C ESD-R Risk L ow Risk (0 - 16) P MQ-R Score 1 6 P MQ-R Risk L ow Risk (0 - 34) G PCOG Score 9 G PCOG Risk N o Risk (9) C ESD-R PMQ-R GPCOG Testing Interval L ow Risk (every 6 months) C ESD-R PMQ-R GPCOG Next Test Due 0 08/18/2025 S OAPP Date 0 02/15/2025 S OAPP-R Score 0 S OAPP-R Risk L ow Risk (0 -9) S OAPP-R Testing Interval L ow Risk (every 6 months) C OMM Date 0 02/15/2025 C OMM Score 0 C OMM Risk N egative (< 9) * GPCOG: G PCOG 1 . I am going to give you a name and address. After I have said it, I want you to repeat it. Remember this name and address because I am going to ask you to tell it to me again in a few minutes: Ham Albarran, [address] [facility]. Max 4 attempts R ead to the patient. 2 . What is the date? (exact only) C orrect 3 . Choose which image indicates the hours of a clock (correct spacing required) C orrect 4 . Which clock shows 10 minutes past eleven o'clock? C orrect 5 . Can you tell me something that happened in the news recently? (Recently = in the last week. If a general answer is given, eg war, lot of rain, ask for details. Only specific answer scores). C orrect 6 . What was the name and address I asked you to remember? First Name = Ham Schmidt orrect 6 . What was the name and address I asked you to remember? Last Name = [place] C orrect 6 . What was the name and address I asked you to remember? Street Number = [address] C orrect 6 . What was the name and address I asked you to remember? Street Name = [facility] C orrect 6 . What was the name and address I asked you to remember? City = [place] C orrect T otal Score (out of 9) 9 W e have evaluated the patient using PMQ-R, CESD-R and GPCOG assessments. Based on data collected from the PMQ-R, we are evaluating the risk for abuse, misuse and diversion. Furthermore, we are screening the patient for depression using the CESD-R assessment. Lastly, we are utilizing GPCOG to ensure that the current treatment plan is not impairing cognition. Per assessments 02/15/25 the patient has low risk for depression, low risk for opioid misuse, abuse, and no cognitive impairment. * Medications: T aking Belbuca 300 mcg Film 1 film buccally every 12 hours , Notes to Pharmacist: Do not fill until 03/23/25., Notes: Next fill go from 03/25/25., Taking Nortriptyline HCl 25 mg Capsule 1 capsule Oral twice per day 30 days , Taking Naloxone HCl 4 MG/0.1ML Liquid 1 spray Nasally as needed for opioid overdose emergency. Call 911 , Taking Bimatoprost 0.03 % Solution APPLY ONE DROP TO BRUSH AND APPLY TO EYELID AT BASE OF UPPER EYELASHES External , Taking Tretinoin 0.025 % Cream External , Medication List reviewed and reconciled with the patient * Allergies: P enicillin: Other. Objective: * Vitals: H t: 5ft 2in, Wt:125lbs, BP:96/63mm Hg, Pain scale:41-10, HR:76/min, BMI:22.86Index, Ht-cm: 157.48 cm, Wt-k.7 kg, Body Surface Area: 1.57. Assessment: * Assessment: 1. L umbosacral plexus disorders - G54.1 (Primary) 2 . P elvic pain in female - R10.2 3 . 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 R ight knee pain - M25.561 ? Plan: * Treatment: * Billing Information: * Visit Code: * Procedure Codes: * Electronic signature of Stephanie Sheth DNP/COLTEN on 04/21/2025 at 09:51 AM CDT Sign off status: Pending * Appointment Provider: Deidre Sheth NP Date: Generated for Printing/Faxing/eTransmitting on: 06/21/2024 09:51 AM CDT History and Physical Notes * HPI (History of Present Illness) Category Sub-Category Detail Notes Category Not es *Pain Management: Sonam Bennett is a 39 year old female who presents today for a medication renewal and follow-up. She has a history of chronic pelvic pain secondary to pudendal nerve entrapment. She has had pudendal nerve release s 2011 and 2014. She had 100% relief of pain that returned when she was with first child. She has done physical therapy, interventional treatments and medications. She is back in office working. She is up to date on blood work and mammogram. She states she does get a colonoscopy yearly. In the past, did have a large benign polyp mass removed. She now gets them yearly as a preventative. We will get updated x-rays today and patient to schedule yearly MD visit. Patient states 2 weeks ago, she was exercising at the gym and was doing some squats and states a few minutes later after being done, she felt pain in the back of her right knee. She has been icing the area and elevating it. She is still doing her normal activity and exercising. She has noticed now the pain radiates to the medial aspect of her right knee. She feels like the pain has not improved over the last 2 weeks, feels worse today. She has never injured that knee in the past. She denies any low back pain. Did get x-ray of right knee today. No fracture or tumors seen. We will plan to update 4x2x4 x-rays next visit. Did discuss scheduling yearly MD visit. She plans to schedule with Dr. Menchaca. Patient rates her pain 4/10, left glute, bilateral feet. She describes the pain as stabbing, burning, and throbbing. She denies loss of bowel or bladder control, numbness or tingling in groin. She schedules pudendal blocks when needed which are helpful. She has tried nerve stimulators in the past, nothing seemed to help. Did discuss Sprint PNS, plans to discuss with Dr. Menchaca at yearly MD visit. She is renewed on Belbuca 300 mcg films every 12 hours she uses nortriptyline 1 to 2 capsules at bed. PDMP checked: 03/15/25 Last refill: 02/23/25 Last Narcan script updated: 04/26/24 *Established Patient Established Patient Questionnaire: 1. Are you currently taking a Blood Thinner Medication?: No 2. Do you have an allergy to I.V. Contra st or Shellfish?: No 3. List any changes to medic al history. (eg; Falls, Test, Scans, Blood Work, and Hospitalizations): None 6. What is your Pain Level today? (1-10, Scroll and select one): 4 7. Where is your pain located?: Left Arm ,Right Arm,Left Hand,Right Hand 8. After your last visit, what Percentag e of improvement did you experience?: 0 9. Are you doing Physical Therapy, Chiro practic, or Massage Therapy?: No 10. Are you doing an at home Exercise Pr ogram?: No 11. What activities or posit ions increase your Pain? (Scroll to select one or multiple): Sitting 12. What activities or posit ions decrease your Pain? (Scroll to select one or multiple): Other 13. How would you describe y our Pain? (Scroll to select one or multiple): Stabbing,Throbbing,Burning 14. Are you having difficulty sleeping?: No 15. When was the last time y ou had your blood drawn? (Please enter your best estimate): 2024 16. When was your last Mammo gram? (Please put N/A if you are male, for Females please put the best Estimate or Never.): 2024 17. When was your last Colonoscopy? (Ple ase put the best Estimate or Never.): 2024 18. Do you need any refills on your medi cations today?: Yes 19. Any changes to your medications or a llergies since your last visit?: No 20. Are you Diabetic?: No 21. Do you suffer from Constipation?: No
--- OUTSIDE RECORDS SUMMARY | 2025-04-16 04:30 | XMS_ITS ---
Author Organization [facility] Address [address] [place] [address] Care Team Providers Care Key Entry Operator Name Role Phone Leopoldo Blake Unavailable [phone] REASON FOR VISIT 424 rt knee Medications Medication SIG (Take, Route, Frequency, Duration) [...] 0.025 % External; Duration: 30 Days Active Encounters Encounter Location Date Provider Diagnosis [facility] [address] [place] [address] 04/16/2025 Leopoldo Blake Cervical spine pain M54.2 ; Thoracic spine pain M54.6 ; Lumbar spine pain M54.50 ; Leg length discrepancy M21.70 and Right knee pain M25.561 Assessments Encounter Date Diagnosis (ICD Code) Assessment Notes Treatment Notes Treatment Clinical Notes Section Notes 04/16/2025 Cervical spine pain (ICD-10 - M54.2) 04/16/2025 Thoracic spine pain (ICD-10 - M54.6) 04/16/2025 Lumbar spine pain (ICD-10 - M54.50) 04/16/2025 Leg length discrepancy (ICD-10 - M21.70) 04/16/2025 Right knee pain (ICD-10 - M25.561) Plan Of Treatment Pending Test Test Name Order Date X ray : Knee, right 2 views 04/16/2025 X ray : Thoracic spine 2 views X ray : Spines, cervical 4 views 025 X ray : Spines, lumbar 4 views 5 Next Appt Details Provider Name:Bernarda Glez john, 05/09/2025 02:15:00 PM, [address] [place] [address], [address], [address], Progress Notes * Sonam BENNETT CDOB:[birth year] (39 yo F)Acc No.[id number]:04/16/2025 Patient: Sonam BRANTLEY Provider: Davi Blake MD :1985 A ge:39 Y S ex:Female Date:04/16/2025 Address:[facility] [address], [facility] Subjective: * Chief Complaints: * 1 . 424 rt knee. * Medical History: * Medications: T aking Belbuca 300 mcg [...] , Taking Tretinoin 0.025 % Cream External Objective: * Vitals: Assessment: * Assessment: 1. C ervical spine pain - M54.2 2 . T horacic spine pain - M54.6 3 . L umbar spine pain - M54.50 4 . L eg length discrepancy - M21.70? 5. R ight knee pain - M25.561 Plan: * Treatment: 2.?Thoracic spine pain?Imaging: X ray : Thoracic spine 2 views* 3.?Lumbar spine pain?Imaging: X ray : Spines, lumbar 4 views* 4.?Right knee pain?Imaging: X ray : Knee, right 2 views* * Procedure Codes: 7 2049 X-RAY EXAM OF NECK SPINE 4 OR 5 VIEWS, 02853 X-RAY EXAM OF THORACIC SPINE 2 VIEWS, 69310 X-RAY EXAM OF LOWER SPINE MIN 4 VIEWS, 05056 X-RAY EXAM OF KNEE, 1 OR 2 * Billing Information: * Visit Code: * Procedure Codes: 99258 X-RAY EXAM OF NECK SPINE 4 OR 5 VIEWS. 85172 X-RAY EXAM OF THORACIC SPINE 2 VIEWS. 49213 X-RAY EXAM OF LOWER SPINE MIN 4 VIEWS. 08104 X-RAY EXAM OF KNEE, 1 OR 2. * Electronic signature of Deonte Blake MD on 04/21/2025 at 09:51 AM CDT Sign off status: Pending * Provider: Davi Blake MD Date: Generated for Viki smith/Sonja/Ellie on: 06/21/2024 09:51 AM CDT
--- OUTSIDE RECORDS SUMMARY | 2025-04-21 09:51 | XMS_ITS | Encounter Summary ---
Author Organization [facility] Address [address] [place] [address] Care Team Providers Care Mining Captain Name Role Phone Nikos Brooks MD Primary Care Provider [phone] Encounter Details Date Type Department Care Team (Late st Contact Info) Description 06/15/2002 Outpatient Historical [facility] Matches Fashion Support Serv. (Adt Cardiology-[facility]) [address] 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 [address] PCP - General Family Practice 06/27/20 documented as of this encounter
--- OUTSIDE RECORDS SUMMARY | 2025-04-21 09:51 | XMS_ITS | Encounter Summary ---
Author Organization [facility] Address [address] [place] [address] Care Team Providers Care City Route Driver Name Role Phone Nikos Brooks MD Primary Care Provider [phone] Encounter Details Date Type Department Care Team (Late st Contact Info) Description 05/28/2005 Outpatient Historical [facility] [place] [address] [place] [address] Bernard Galvin MD [address] [facility] [place] [address] Social History Tobacco Use Types Packs/Day Years Used Date Smoking Tobacco: Never Assessed Comments Unknown Sex and Gender Information Value Date Recorded Sex Assigned at Not on file Legal Sex Female 4:33 AM MANAGER CREATIVE SERVICES Gender Identity Not on file Sexual Orientation Not on file documented as of this encounter Last Filed Vital Signs Vital Sign Reading Time Taken Comments Blood Pressure 110/70 05/28/2005 9:40 AM MANAGER CREATIVE SERVICES Pulse - - Temperature 36 C (96.8 F) 05/28/2005 9:40 AM MANAGER CREATIVE SERVICES Respiratory Rate - - Oxygen Saturation - - Inhaled Oxygen Concentration - - Weight 49 kg (108 lb) 05/28/2005 9:40 AM MANAGER CREATIVE SERVICES Height - - Body Mass Index - - documented in this encounter Plan of Treatment Not on file documented as of this encounter Visit Diagnoses Not on filedocumented in this encounter Additional Health Concerns Infection Onset Date Last Indicated Resolved Time R/O COVID-19 04/09/2023 04/09/2023 04/10/2023 12:2 4 AM CDT documented as of this encounter Care Teams City Route Driver Relationship Specialty Start Date End Date Nikos Brooks MD [address] [place] [address] PCP - General Family Practice 06/27/20 documented as of this encounter
--- OUTSIDE RECORDS SUMMARY | 2025-04-21 09:51 | XMS_ITS | Encounter Summary ---
Author Organization [facility] Address [address] [place] [address] Care Team Providers Care Infusion Pharmacist Name Role Phone Nikos Brooks MD Primary Care Provider [phone] Encounter Details Date Type Department Care Team (Late st Contact Info) Description 08/24/2001 Outpatient Historical [facility] [place] [address] [place] [address] Manuel Madsen MD [address] [place] [address] Social History Tobacco Use Types Packs/Day Years Used Date Smoking Tobacco: Never Assessed Comments Unknown Sex and Gender Information Value Date Recorded Sex Assigned at Not on file Legal 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 [address] PCP - General Family Practice 06/27/20 documented as of this encounter
--- OUTSIDE RECORDS SUMMARY | 2025-04-21 09:51 | XMS_ITS | Encounter Summary ---
Author Organization [facility] Address 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 [address] PCP - General Family Practice 06/27/20 documented as of this encounter
--- OUTSIDE RECORDS SUMMARY | 2025-04-21 09:51 | XMS_ITS | Patient Health Record ---
Author Organization [facility] Address [address] [id number] Care Team Providers Care Pediatrician Active Practice Name Role Phone Priscila Bolanos Unavailable Unavailable [...] Date Coverage End Date [employer] [address] [place] [address] [id number] Sonam Bennett Self - patient is the insured 4 Medical (General) History Surgical History Surgery Date(Month/Year) pudendal nerve surgeries x 2
--- OUTSIDE RECORDS SUMMARY | 2025-04-21 09:51 | XMS_ITS | Encounter Summary ---
Author Organization [facility] Address [address] [place] [address] Care Team Providers Care Agriculture Technician Name Role Phone Nikos Brooks MD Primary Care Provider [phone] Encounter Details Date Type Department Care Team (Late st Contact Info) Description 08/08/2001 Outpatient Historical [facility] [place] [address] [place] [address] Manuel Madsen MD [address] [place] [address] Social History Tobacco Use Types Packs/Day Years Used Date Smoking Tobacco: Never Assessed Comments Unknown Sex and Gender Information Value Date Recorded Sex Assigned at Not on file Legal Sex Female 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 [address] PCP - General Family Practice 06/27/20 documented as of this encounter
--- OUTSIDE RECORDS SUMMARY | 2025-04-21 09:51 | XMS_ITS | Encounter Summary ---
Author Organization [facility] Address [address] [place] [address] Care Team Providers Care Rivet Machine Operator Name Role Phone Nikos Brooks MD Primary Care Provider [phone] Encounter Details Date Type Department Care Team (Late st Contact Info) Description 03/18/2006 Outpatient Historical [facility] Internal Medicine - [place] [address] [place] [address] Bernard Galvin MD [address] [place] [address] Social History Tobacco Use Types Packs/Day Years Used Date Smoking Tobacco: Never Assessed Comments Unknown Sex and Gender Information Value Date Recorded Sex Assigned at Not on file Legal Sex Female 4:33 AM RES COUNSELOR Gender Identity Not on file Sexual Orientation [...] documented as of this encounter Care Teams Rivet Machine Operator Relationship Specialty Start Date End Date Nikos Brooks MD [address] [place] [address] PCP - General Family Practice 06/27/20 documented as of this encounter
--- OUTSIDE RECORDS SUMMARY | 2025-04-21 09:51 | XMS_ITS | Encounter Summary ---
Author Organization [facility] Address [address] [place] [address] Care Team Providers Care Welt Edge Rounder Name Role Phone Nikos Brooks MD Primary Care Provider [phone] Encounter Details Date Type Department Care Team (Late st Contact Info) Description 08/08/2001 Outpatient Historical [facility] [place] [address] [place] [address] Manuel Madsen MD [address] [place] [address] Social History Tobacco Use Types Packs/Day Years Used Date Smoking Tobacco: Never Assessed Comments Unknown Sex and Gender Information Value Date Recorded Sex Assigned at Not on file Legal 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 [address] PCP - General Family Practice 06/27/20 documented as of this encounter
--- OUTSIDE RECORDS SUMMARY | 2025-04-21 09:51 | XMS_ITS | Encounter Summary ---
Author Organization [facility] Address [address] [place] [address] Care Team Providers Care Traffic Control Officer Name Role Phone Nikos Brooks MD Primary Care Provider [phone] Encounter Details Date Type Department Care Team (Late st Contact Info) Description 02/24/2006 Outpatient Historical [facility] Internal Medicine - [place] [address] [place] [address] Bernard Galvin MD [address] [place] [address] Social History Tobacco Use Types Packs/Day Years Used Date Smoking Tobacco: Never Assessed Comments Unknown Sex and Gender Information Value Date Recorded Sex Assigned at Not on file Legal Sex Female 4:33 AM BRAND LEAD Gender Identity Not on file Sexual Orientation [...] documented as of this encounter Care Teams Traffic Control Officer Relationship Specialty Start Date End Date Nikos Brooks MD [address] [place] [address] PCP - General Family Practice 06/27/20 documented as of this encounter
--- OUTSIDE RECORDS SUMMARY | 2025-04-21 09:52 | XMS_ITS | Encounter Summary ---
Author Organization [facility] Address [address] [place]: [place] [address] Care Team Providers Care Analyst Sales Name Role Phone Nikos Brooks MD Primary Care Provider Encounter Details Date Type Department Care Team (Latest Contact Info) Description 02/10/2007 [place] [address] 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 Headaches started after the new job. Hasn't [...] appetite. No major weight gain or loss. No malaise, chills, fever, diaphoresis.. ENT: No hearing loss, [...] will use PRN. LAB ORDERS: Order number: [id number] Test Ordered: CBC W/ DIFFERENTIAL 3150 Order number: [id number] Test Ordered: CMP & LIVER PANEL 1295 Order number: [id number] Test Ordered: TSH (REFLEX FREE T4/FREE T3) [...] documented as of this encounter Care Teams Analyst Sales Relationship Specialty Start Date End Date Nikos Brooks MD [address] [place] [address] PCP - General Family Practice 06/27/20 documented as of this encounter
--- OUTSIDE RECORDS SUMMARY | 2025-04-21 09:52 | XMS_ITS | Encounter Summary ---
Author Organization [facility] Address 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 [address] PCP - General Family Practice 06/27/20 documented as of this encounter
--- OUTSIDE RECORDS SUMMARY | 2025-04-21 09:52 | XMS_ITS | Encounter Summary ---
Author Organization [facility] Address [address] [place] [address] Care Team Providers Care Resin Remover Name Role Phone Nikos Brooks MD Primary Care Provider [phone] Encounter Details Date Type Department Care Team (Late st Contact Info) Description 04/18/2025 External Device Data [place] ABSTRACTION Provider, Abstract NO ADDRESS ON FILE Social History Tobacco Use Types Packs/Day Years Used Date Smoking Tobacco: Never Smokeless Tobacco: Never Alcohol Use Standard Drinks/Week Comments No 0 (1 standard drink = 0.6 oz pur e alcohol) occ Feeling Safe Answer Date Recorded Are you in a relationship wi th someone who hurts you emotionally and/or physically? No 08/11/2024 Food Insecurity Answer Date Recorded Social/Environmental Concerns No concerns Transportation Needs Answer Date Record ed Social/Environmental Concerns No concerns Housing Stability Answer Date Recorded Social/Environmental Concerns No concerns Utility Needs Answer Date Recorded Social/Environmental Concerns No concerns Comments No Sex and Gender Information Value Date Recorded Sex Assigned at Not on file Legal Sex Female 4:33 AM RELAY TESTER Gender Identity Not on file Sexual Orientation Not on file documented as of this encounter Plan of Treatment Not on file documented as of this encounter Visit Diagnoses Not on filedocumented in this encounter Care Teams Resin Remover Relationship Specialty Start Date End Date Nikos Brooks MD [address] [place] [address] PCP - General Family Practice 06/27/20 documented as of this encounter
--- OUTSIDE RECORDS SUMMARY | 2025-04-21 09:52 | XMS_ITS | Encounter Summary ---
Author Organization [facility] Address [address] [place] [address] Care Team Providers Care Family Partner Name Role Phone Nikos Brooks MD Primary Care Provider [phone] Encounter Details Date Type Department Care Team (Late st Contact Info) Description 07/16/2003 Outpatient [place] [address] [facility] [address] [place] [address] Social History Tobacco Use Types Packs/Day Years Used Date Smoking Tobacco: Never Assessed Comments Unknown Sex and Gender Information Value Date Recorded Sex Assigned at Not on file Legal Sex Female 4:33 AM CASEWORKER Gender Identity Not on file Sexual Orientation Not on file documented as of this encounter Plan of Treatment Not on file documented as of this encounter Visit Diagnoses Not on filedocumented in this encounter Additional Health Concerns Infection Onset Date Last Indicated Resolved Time R/O COVID-19 04/09/2023 04/09/2023 04/10/2023 12:2 4 AM CDT documented as of this encounter Care Teams Family Partner Relationship Specialty Start Date End Date Nikos Brooks MD [address] [place] [address] PCP - General Family Practice 06/27/20 documented as of this encounter
--- OUTSIDE RECORDS SUMMARY | 2025-04-21 09:52 | XMS_ITS | Encounter Summary ---
Author Organization [facility] Address [address] [place] [address] Care Team Providers Care Shaker Repairer Name Role Phone Nikos Brooks MD Primary Care Provider [phone] Encounter Details Date Type Department Care Team (Late st Contact Info) Description 02/10/2007 Outpatient Historical [facility] Internal Medicine - [place] [address] [place] [address] Bernard Galvin MD 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 [id number] PCP - General Family Practice 06/27/20 documented as of this encounter
--- OUTSIDE RECORDS SUMMARY | 2025-04-21 09:52 | XMS_ITS | Patient Health Record ---
Author Organization [facility] Address [address] [place] [address] Care Team Providers Care Custom Feed Mill Operator Name Role Phone Radha Blake Unavailable [phone] Sotero Menchaca Unavailable [phone] Lorrie Oneil PA-C Unavailable Bernarda Sheth Unavailable [phone] Leopoldo Blake Unavailable [phone] Allergies Allergen (clinical drug ingredient) Drug/Non Drug Allergy documented on EMR Reaction Allergy Type Onset Date Status Penicillin Other Drug Allergy Active Results Component Value Reference Range Notes ViewReple Profil e Reviewed date:08/01/2024 02:05:44 PM Interpretation: Performing Lab:[facility] (CLIA#: [id number]), [address] [place] [address], Director - Tonja Powell Notes/Report: These tests were developed and their performance characteristics determined by [facility]. They have not been cleared or approved by the [place] Food and Drug Administration. Certifying Assistant Site Manager: Venice Jean (Remote [id number]) Analyzed at [facility] (CLIA#: [id number]) - [address] [place] [address] - Truck Packer: Tonja Alvarez Nortrip Ur CMP 128 >=10 ng/mL COMPLIANT: [...] Ql Cfm <1 >=1 ng/mL NONE DETECTED DISEASE INTERVENTION SPECIALIST Not Otherwise Specified Ur Ql Cfm <1 >=1 ng/mL NONE DETECTED Synthetic Cannabinoids Ur Ql Cfm <1 >=1 ng/m L NONE DETECTED Hallucinogens/Dissociatives Ur Ql Cfm <1 >=1 ng/mL NONE DETECTED Staff Certified Nurse Midwife Benzodiazepines Ur Ql Cfm <1 >=1 ng/mL NONE DETECTED Staff Certified Nurse Midwife Opioids Ur Ql Cfm <1 >=1 ng/mL N ONE DETECTED THC Ur Ql Scn <20 >=20 ng/mL NONE DETECTED [facility] Profil e Reviewed date:01/20/2025 05:57:17 AM Interpretation: Performing Lab:[facility] (CLIA#: [id number]), [address] [place] [address], Director - Tonja Powell Notes/Report: These tests were developed and their performance characteristics determined by [facility]. They have not been cleared or approved by the [place] Food and Drug Administration. Certifying Assistant Site Manager: Rony Fong (Remote [id number]) Analyzed at [facility] (CLIA#: [id number]) - [address] [place] [address] - Truck Packer: Tonja Alvarez Buprenorphine Ur CMP 46 >=1 ng/mL COMPLIA NT: Test result is consistent and expected with prescribed drug. Nortrip Ur CMP <10 >=10 ng/mL NON-COMPLIANT : Test result indicates patient may not be taking drug prescribed. BioDetect EXPECTED Test result is consistent with routinely analyzed human urine. 6MAM Ur Ql Cfm <10 >=10 ng/mL NONE DETECTED Amphetamines Ur Ql Cfm <100 >=100 ng/mL NONE DETECTED Benzodiaz Ur Ql Cfm <25 >=25 ng/mL NONE DET ECTED Buprenorphine Ur Ql Cfm >=1 >=1 ng/mL POSI TIVE Norbuprenorphine Ur Cfm-mCnc 22 >=2.5 ng/mL POSITIVE Buprenorphine Ur Cfm-mCnc 24 >=1 ng/mL PO SITIVE BZE Ur Ql [...] >=100 ng/mL NONE DETE CTED Creat Ur-mCnc 56.4 20 - 370 mg/dL NORMAL Creatinine and pH are performed for specimen validity and not diagnostic purposes. pH Ur 7.30 4.5 - 9.0 NORMAL Creatinine and pH are performed for specimen validity and not diagnostic purposes. Alcohol Metabolites Ur Ql Cfm <200 >=200 ng/mL NONE DETECTED Ethyl sulfate Ur Cfm-mCnc <200 >=200 ng/mL NO NE DETECTED Tricyclics Ur Ql Cfm <10 >=10 ng/mL NONE DE TECTED Synthetic Stimulants Ur Ql Cfm <1 >=1 ng/mL NONE DETECTED DISEASE INTERVENTION SPECIALIST Not Otherwise Specified Ur Ql Cfm <1 >=1 ng/mL NONE DETECTED Synthetic Cannabinoids Ur Ql Cfm <1 >=1 ng/m L NONE DETECTED Hallucinogens/Dissociatives Ur Ql Cfm <1 >=1 ng/mL NONE DETECTED Staff Certified Nurse Midwife Benzodiazepines Ur Ql Cfm <1 >=1 ng/mL NONE DETECTED Staff Certified Nurse Midwife Opioids Ur Ql Cfm <1 >=1 ng/mL N ONE DETECTED THC Ur Ql Scn <20 >=20 ng/mL NONE DETECTED Reason For Referral No Information Medications Medication SIG (Take, Route, Fr equency, Duration) Notes Start Date End Date Status Belbuca 300 mcg 1 film buccally ever y 12 hours; Duration: 30 days 04/16/2025 Active Nortriptyline HCl 25 mg 1 capsule Oral t wice per day 30 days; Duration: 30 days Activ e Bimatoprost 0.03 % APPLY ONE DROP TO BR USH AND APPLY TO EYELID AT BASE OF UPPER EYELASHES External; Duration: 30 Days Active Naloxone HCl 4 MG/0.1ML 1 spray Nasally as needed for opioid overdose emergency. 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) Active confirmed Problem Pain in female pelvis (154087510) Pelvic pain in female (R10.2) Active confirmed Problem Right knee pain (83801905709993 5) Right knee pain (M25.561) Active confirmed Problem Neck pain (56969245) Cervical spine pain (M54.2) Active confirmed Vital Signs Heart Rate 76 /min 04/16/2025 Blood pressure diastolic 63 mm Hg 04/16/2025 Height-cm 157.48 cm 04/16/2025 Weight-kg 56.7 kg 04/16/2025 Height 5ft 2in in 04/16/2025 Blood pressure systolic 96 mm Hg 04/16/2025 Weight 125 lbs 04/16/2025 BMI 22.86 kg/m2 04/16/2025 Encounters Encounter Location Date Provider Diagnosis [facility] [address] [place] [address] [address] [place] [address] 04/16/2025 Bernarda Sheth Lumbosacral plexus disorders G54.1 ; Pelvic pain in female R10.2 ; 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 ; terminal press operator use of drug Z79.899 and Right knee pain M25.561 [facility] [address] [place] [address] 04/16/2025 Leopoldo Blake Cervical spine pain M54.2 ; Thoracic spine pain M54.6 ; Lumbar spine pain M54.50 ; Leg length discrepancy M21.70 and Right knee pain M25.561 [facility] [address] [place] [address] 04/26/2024 Bernarda Sheth Lumbosacral plexus disorders G54.1 ; Pelvic pain in female R10.2 and terminal press operator use of drug Z79.899 Telehealth [facility] [address] [place] [address] [address] [place] [address] 05/22/2024 Bernarda Sheth Pelvic pain in femal e R10.2 and Lumbosacral plexus disorders G54.1 [facility] [address] [place] [address] [address] [place] [address] 07/05/2024 Bernarda Sheth Lumbosacral plexus disorders G54.1 ; Pelvic pain in female R10.2 ; 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 and [facility] use of drug Z79.899 Telehealth [facility] [address] [place] [address] 08/02/2024 Bernarda Sheth Pelvic pain in femal e R10.2 ; Lumbosacral plexus disorders G54.1 ; terminal press operator use of drug Z79.899 and 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 Telehealth [facility] [address] [place] [address] [address] [place] [address] 09/14/2024 Lorrie Oneil Lumbosacral plexus disorders G54.1 ; Pelvic pain in female R10.2 ; 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 and terminal press operator use of drug Z79.899 [facility] [address] [place] [address] [address] [place] [address] 10/17/2024 Bernarda Sheth Lumbosacral plexus disorders G54.1 ; Pelvic pain in female R10.2 ; 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 and terminal press operator use of drug Z79.899 Telehealth [facility] [address] [place] [address] [address] [place] [address] 11/21/2024 Bernarda Sheth Lumbosacral plexus disorders G54.1 ; Pelvic pain in female R10.2 ; 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 and terminal press operator use of drug Z79.899 [facility] [address] [place] [address] [address] [place] [address] 12/21/2024 Bernarda Sheth Pelvic pain in femal e R10.2 ; 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 and [facility] use of drug Z79.899 [facility] [address] [place] [address] 01/17/2025 Bernarda Sheth Lumbosacral plexus disorders G54.1 ; Pelvic pain in female R10.2 ; 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 ; terminal press operator use of drug Z79.899 and Chronic pain G89.29 [facility] [address] [place] [address] [address] [place] [address] 02/15/2025 Bernarda Sheth Lumbosacral plexus disorders G54.1 ; Pelvic pain in female R10.2 ; 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 and terminal press operator use of drug Z79.899 [facility] [address] [place] [address] 03/15/2025 Bernarda Sheth Pelvic pain in femal e R10.2 ; Lumbosacral plexus disorders G54.1 ; 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 and terminal press operator use of drug Z79.899 [facility] [address] [place] [address] 04/26/2024 Sotero Menchaca [facility] [address] [place] [address] 05/22/2024 Radha Hayden [facility] [address] [place] [address] 07/05/2024 Sotero Menchaca [facility] [address] [place] [address] 08/02/2024 Sotero Menchaca [facility] [address] [place] [address] 09/14/2024 Leopoldo Blake [facility] [address] [place] [address] 10/17/2024 Radha Hayden [facility] [address] [place] [address] 11/21/2024 Radha Hayden [facility] [address] [place] [address] 12/21/2024 Radha Hayden [facility] [address] [place] [address] 01/17/2025 Sotero Menchaca [facility] [address] [place] [address] 02/15/2025 Radha Hayden [facility] [address] [place] [address] 03/15/2025 Radha Hayden [facility] [address] [place] [address] 04/16/2025 Radha Hayden [facility] [address] [place] [address] 01/23/2025 Radha lBake [facility] [address] [place] [address] 01/24/2025 Radha Blake [facility] [address] [place] [address] 01/25/2025 Sotero Menchaca [facility] [address] [place] [address] 04/18/2025 Leopoldo Blake Right knee pain M25. 561 Assessments Encounter Date Diagnosis (ICD Code) Assessment Notes Treatment Notes Treatment Clinical Notes Section Notes 04/26/2024 Lumbosacral plexus disorders (ICD-10 - G54.1) [...] month for med check, sooner if needed 01/17/2025 Lumbosacral plexus disorders (ICD-10 - G54.1) Refill for controlled substance sent to supervising physician to be filled Continue home stretching and at home exercise program as tolerated Follow-up in one month for med check, sooner if needed 02/15/2025 Lumbosacral plexus disorders (ICD-10 - G54.1) Refill for controlled substance sent to supervising physician to be filled Plan to get updated x-rays next visit. Plan to schedule MD visit Continue home stretching and at home exercise program as tolerated Follow-up in one month for med check, sooner if needed 03/15/2025 Pelvic pain in female (ICD-10 - R10.2) Refill for controlled substance sent to supervising physician to be filled Plan to get updated x-rays next visit. Plan to schedule yearly MD visit with Dr. Menchaca, discuss [employer]. Continue home stretching and at home exercise program as tolerated Follow-up in one month for med check, sooner if needed 04/16/2025 Lumbosacral plexus disorders (ICD-10 - G54.1) 03/15/2025 Lumbosacral plexus disorders (ICD-10 - G54.1) 04/16/2025 Pelvic pain in female (ICD-10 - R10.2) 04/16/2025 Cervical spine pain (ICD-10 - M54.2) 04/18/2025 Right knee pain (ICD-10 - M25.561) 04/16/2025 Thoracic spine pain (ICD-10 - M54.6) 03/15/2025 Other specified mononeuropathies (ICD-10 - G58.8) 04/16/2025 Other specified mononeuropathies (ICD-10 - G58.8) 01/17/2025 Pelvic pain in female (ICD-10 - R10.2) 02/15/2025 Pelvic pain in female (ICD-10 - R10.2) 12/21/2024 [facility] use of drug (ICD-10 - Z79.899) 11/21/2024 Other specified mononeuropathies (ICD-10 - G58.8) 09/14/2024 Pelvic pain in female (ICD-10 - R10.2) 10/17/2024 Pelvic pain in female (ICD-10 - R10.2) 08/02/2024 terminal press operator use of drug (ICD-10 - Z79.899) 07/05/2024 Other specified mononeuropathies (ICD-10 - G58.8) 04/26/2024 terminal press operator use of drug (ICD-10 - Z79.899) 07/05/2024 [facility] use of drug (ICD-10 - Z79.899) 08/02/2024 Other specified mononeuropathies (ICD-10 - G58.8) 10/17/2024 Other specified mononeuropathies (ICD-10 - G58.8) 09/14/2024 Other specified mononeuropathies (ICD-10 - G58.8) 11/21/2024 terminal press operator use of drug (ICD-10 - Z79.899) 01/17/2025 Other specified mononeuropathies (ICD-10 - G58.8) 02/15/2025 Other specified mononeuropathies (ICD-10 - G58.8) 04/16/2025 [facility] use of drug (ICD-10 - Z79.899) 03/15/2025 terminal press operator use of drug (ICD-10 - Z79.899) 04/16/2025 Lumbar spine pain (ICD-10 - M54.50) 04/16/2025 Right knee pain (ICD-10 - M25.561) 04/16/2025 Leg length discrepancy (ICD-10 - M21.70) 02/15/2025 terminal press operator use of drug (ICD-10 - Z79.899) 01/17/2025 [facility] use of drug (ICD-10 - Z79.899) 09/14/2024 [facility] use of drug (ICD-10 - Z79.899) 10/17/2024 terminal press operator use of drug (ICD-10 - Z79.899) 01/17/2025 Chronic pain (ICD-10 - G89.29) 04/16/2025 Right knee pain (ICD-10 - M25.561) 04/16/2025 Other Learning About Low Back Pain material was published 07/05/2024 Other Learning About How to Have a Healthy Back material was published 10/17/2024 Other Body Mass Index : Care Instructions material was published, High Blood Pressure: Care Instructions material was published, Learning About How to Have a Healthy Back material was published 01/17/2025 Other Learning About How to Have a Healthy Back material was published 03/15/2025 Other Learning About Low Back Pain material was published, Back Pain: Care Instructions material was published Plan Of Treatment Pending Test Test Name Order Date X ray : Knee, right 2 views 04/16/2025 X ray : Thoracic spine 2 views X ray : Spines, cervical 4 views 025 X ray : Spines, lumbar 4 views EtS (Alcohol Metabolite) - Urine 025 QMP Plus D/L - Urine 01/17/2025 Synthetic Stimulants 01/17/2025 Staff Certified Nurse Midwife Benzodiazepines 01/17/2025 Synthetic Cannabinoids 01/17/2025 Staff Certified Nurse Midwife Opioids 01/17/2025 Hallucinogens/Dissociatives 01/17/2025 DISEASE INTERVENTION SPECIALIST Other 01/17/2025 Marijuana - Urine 01/17/2025 PainComp Medication Compliance - Urine 0 01/17/2025 [facility] Required Information 01/17/2025 Next Appt Details Provider Name:Bernarda Glez john, 05/09/2025 02:15:00 PM, [address], [address], [place], [address], Insurance Providers Payer Name Payer Address Payer Phone Subscriber Number Group Number Insured Name Patient Relationship to Insured Coverage Start Date Coverage End Date [facility] [address] [place] [address] [id number] Sonam Macedo Self - patient is the insured 4 Medical (General) History Medical History History ICD Code insomnia Surgical History Surgery Date(Month/Year) pudendal nerve entrapment release x 2 Shoulder Surgery 2006- Left shoulder nevaeh coty- torn rotator cuff 2008- LEEP surgery Hospitalization History Reason Date(Month/Year) no hospitalization since last visit
--- OUTSIDE RECORDS SUMMARY | 2025-04-21 09:52 | XMS_ITS | Encounter Summary ---
Author Organization [facility] Address [address] [place] [address] Care Team Providers Care Engine Hostler Name Role Phone Nikos Brooks MD Primary Care Provider [phone] Encounter Details Date Type Department Care Team (Late st Contact Info) Description 08/26/2007 Outpatient Historical [facility] Internal Medicine Medical [place] [facility] 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 [address] PCP - General Family Practice 06/27/20 documented as of this encounter
--- OUTSIDE RECORDS SUMMARY | 2025-04-21 09:52 | XMS_ITS | Encounter Summary ---
Author Organization [facility] Address [address] [place] [address] Care Team Providers Care Dry Cell Battery Assembler Name Role Phone Nikos Brooks MD Primary Care Provider [phone] Encounter Details Date Type Department Care Team (Late st Contact Info) Description 03/18/2004 Outpatient Historical [facility] Internal Medicine - [place] [address] [place] [address] Bernard Galvin MD [address] [place] [address] Social History Tobacco Use Types Packs/Day Years Used Date Smoking Tobacco: Never Assessed Comments Unknown Sex and Gender Information Value Date Recorded Sex Assigned at Not on file Legal Sex Female 4:33 AM REGISTERED NURSE POST PARTUM Gender Identity Not on file Sexual Orientation [...] documented as of this encounter Care Teams Dry Cell Battery Assembler Relationship Specialty Start Date End Date Nikos Brooks MD [address] [place] [address] PCP - General Family Practice 06/27/20 documented as of this encounter
--- OUTSIDE RECORDS SUMMARY | 2025-04-21 09:52 | XMS_ITS | Encounter Summary ---
Author Organization [facility] Address [address] [place] [address] Care Team Providers Care Welcome Wagon Host/Hostess Name Role Phone Nikos Brooks MD Primary Care Provider [phone] Encounter Details Date Type Department Care Team (Latest Contact Info) Description 02/10/2007 Outpatient Historical [facility] Internal Medicine - [place] [address] [place] [address] Bernard Galvin MD [address] [place] [address] Headache (Primary Dx) Social History Tobacco Use Types Packs/Day Years Used Date Smoking Tobacco: Never Assessed Comments Unknown Sex and Gender Information Value Date Recorded Sex Assigned at Not on file Legal Sex Female 4:33 AM PRIMARY CLINICIAN Gender Identity Not on file Sexual [...] MD HEMATOLOGY ORDERABLES Edited Performing Organization Address City/State/[facility] Co de Phone Number INTERFACE SYSTEM Refer [...] MD CHEMISTRY ORDERABLES Edited Performing Organization Address City/State/[facility] Co de Phone Number INTERFACE SYSTEM Refer [...] and non- Americans is available on the [facility] at: [email or web address] Select: Lab Policies and Procedures Select: Reference [...] documented as of this encounter Care Teams Welcome Wagon Host/Hostess Relationship Specialty Start Date End Date Nikos Brooks MD [address] [place] [address] PCP - General Family Practice 06/27/20 documented as of this encounter
--- OUTSIDE RECORDS SUMMARY | 2025-04-21 09:52 | XMS_ITS | Encounter Summary ---
Author Organization [facility] Address [address] [place] [address] Care Team Providers Care Shower Enclosure Installer Name Role Phone Nikos Brooks MD Primary Care Provider [phone] Encounter Details Date Type Department Care Team (Late st Contact Info) Description 02/20/2005 Outpatient Historical [facility] Internal Medicine - [place] [address] [place] [address] Miguel Cohen MD [address] [facility] [place] [address] Social History Tobacco Use Types Packs/Day Years Used Date Smoking Tobacco: Never Assessed Comments Unknown Sex and Gender Information Value Date Recorded Sex Assigned at Not on file Legal Sex Female 4:33 AM MANAGER CONTACT Gender Identity Not on file Sexual Orientation [...] documented as of this encounter Care Teams Shower Enclosure Installer Relationship Specialty Start Date End Date Nikos Brooks MD [address] [place] [address] PCP - General Family Practice 06/27/20 documented as of this encounter
--- OUTSIDE RECORDS SUMMARY | 2025-04-21 09:52 | XMS_ITS | Clinical Summary ---
Author Organization [facility] Address [facility] [place] [address] Care Team Providers Care Electrician Helper Automotive Name Role Phone José Antonio Kamara MD Primary Care Provider [phone] Social History Tobacco Use Types Packs/Day Years Used Date Smoking Tobacco: Never Assessed Comments Unknown Sex and Gender Information Value Date Recorded Sex Assigned at Not on file Legal Sex Female 8:34 PM CDT Gender Identity Not on file Sexual Orientation Not on file Plan of Treatment Health Maintenance Due Date Last Done Comments Cervical Cancer Screening Pa p Smear (Age 30 to 64) Every 3 Years 1984 Annual Physical 09/17/1987 Hepatitis C 2002 DTaP, Tdap and Td Vaccines ( 1 - Tdap) 09/17/2003 Hepatitis B Vaccines (1 of 3 - 19+ 3-dose series) 09/17/2003 HPV Vaccines (1 - 3-dose SCD M series) 09/17/2011 Cervical Cancer Screening Pa p with HPV Testing (Age 30 to 64) Every 5 Years 2014 Cervical Cancer Screening wi th HPV 2014 Mammogram Screening 2024 COVID-19 Vaccine (3 - 2024-2 6 season) 2025 09/24/2020, 08/29/2020 Influenza Adult (#1) 2025 Hepatitis A Vaccines Aged Out No long er eligible based on patient's age to complete this topic Meningococcal B Vaccine Aged Out No l onger eligible based on patient's age to complete this topic Meningococcal Vaccine Aged Out No bety juhi eligible based on patient's age to complete this topic Pneumococcal Vaccine: Pediatrics (0 to 5 Years) and At-Risk Patients (6 to 49 Years) Aged Out No longer eligible b ased on patient's age to complete this topic RSV Immunizations Under 20 Months Aged Out No longer eligible b ased on patient's age to complete this topic Care Teams Electrician Helper Automotive Relationship Specialty Start Date End Date José Antonio Kamara MD PCP - General 05/01/14
--- OUTSIDE RECORDS SUMMARY | 2025-04-21 09:52 | XMS_ITS | Clinical Summary ---
Author Organization [facility] Address [address] [place] [address] Care Team Providers Care Cranberry Farm Supervisor Name Role Phone Nikos Brooks MD Primary Care Provider [phone] Allergies Active Allergy Reactions Criticality Noted Date [...] Encounters Date Type Department Care Team Description 04/18/2025 External Device Data [facility] ABSTRACTION Provider, Abstract 04/11/2025 External Device Data [facility] ABSTRACTION Provider, Abstract 02/20/2025 External Device Data [facility] ABSTRACTION Provider, Abstract 02/07/2025 External Device Data [facility] ABSTRACTION Provider, Abstract 01/23/2025 External Device Data [facility] ABSTRACTION Provider, Abstract [...] on file Legal Sex Female 4:33 AM CLIENT ACCOUNT SPECIALIST Gender Identity Not on file Sexual Orientation Not on file Last Filed Vital Signs Vital Sign Reading Time Taken Comments Blood Pressure 101/61 08/11/2024 12:33 PM CLIENT ACCOUNT SPECIALIST Pulse 79 08/11/2024 12:33 PM CLIENT ACCOUNT SPECIALIST Temperature 36.4 C (97.5 F) 08/11/2024 12:11 PM CLIENT ACCOUNT SPECIALIST Respiratory Rate 12 08/11/2024 12:33 PM CLIENT ACCOUNT SPECIALIST Oxygen Saturation 100% 08/11/2024 12:33 PM CLIENT ACCOUNT SPECIALIST Inhaled Oxygen Concentration - - Weight 59.4 kg (131 lb) 08/11/2024 11:14 AM CLIENT ACCOUNT SPECIALIST Height 157.5 cm (5' 2) 08/11/2024 11:14 AM CLIENT ACCOUNT SPECIALIST Body Mass Index 23.96 08/11/2024 11:14 AM CLIENT ACCOUNT SPECIALIST Plan of Treatment Health Maintenance Due Date Last Done Comments HEPATITIS B VACCINES (1 of 3 - 19+ 3-dose series) 09/17/2003 HPV VACCINES (1 - 3-dose SCD M series) 09/17/2011 BREAST CANCER SCREENING 2024 INFLUENZA VACCINE (#1) 2025 03/21/2016 PAP SMEAR 06/08/2025 06/08/2022, 12/11/2009 DTAP/TDAP/TD VACCINES (2 - T d or Tdap) 04/21/2026 04/21/2016 CERVICAL CANCER SCREENING 06/08/2027 HPV/Cotest (21-29) 06/08/2027 06/08/2022 HPV/Cotest (30-65) 06/08/2027 06/08/2022 COLORECTAL SCREENING 08/11/2027 08/11/2024, 08/11/2024, 04/12/2023, Additional history exists Medical Devices Implanted Type Area Field Manager Device Identifier Shelf Expiration Date Model / Serial / Lot Clip Hemoclip Instinct 7fr [id number] - [id number] Implanted:Qty: 1 on 08/21/2021 by Alberto Mcgill MD at [facility] Clip N/A: Perianal [employer]- ENDOSCOPY - [place] [id number] 03/26/2024 [id number] / / [id number] Clip Hemoclip Instinct 7fr [id number] - [id number] Implanted:Qty: 1 on 08/21/2021 by Alberto Mcgill MD at [facility] Clip N/A: Perianal [employer]OOK- ENDOSCOPY - [place] [id number] 03/26/2024 [id number] / / [id number] Clip Endo Resolution 360 235cm [id number] - [id number] Implanted:Qty: 1 on 04/12/2023 by Dakotah Rios MD at [facility] Clip N/A: Perianal [employer]- ENDOSCOPY [id number] 02/17/2026 [id number] / / [id number] Clip Endo Resolution 360 235cm [id number] - [id number] Implanted:Qty: 1 on 04/12/2023 by Dakotah Rios MD at [facility] Clip N/A: Perianal [employer]- ENDOSCOPY [id number] 02/17/2026 [id number] / / [id number] Procedures Procedure Name Priority Date/Time Associated Diagnosis Comments COLONOSCOPY REPORT 08/11/2024 12 :12 PM CLIENT ACCOUNT SPECIALIST CERV/VAG CYTO SCREEN PAP W/HPV Routine 06/08/2022 10:47 AM CLIENT ACCOUNT SPECIALIST Screening for malignant neoplasm of cervix from Last 3 Months or Most Recently Relevant to Health Maintenance Results * COLONOSCOPY REPORT (08/11/2024 12:12 PM CLIENT ACCOUNT SPECIALIST) Narrative Procedure Note Dakotah Rios MD - 08/11/2024 12:12 PM CST [facility] Endoscopy Patient Name: Sonam Bennett Procedure Date: [...] performed. There was evidence of a prior dckz-fz-pghd colo-colonic anastomosis in the transverse colon. This [...] Complications: No immediate complications. Impression: - Patent fcfd-fz-ntia colo-colonic anastomosis, characterized by healthy appearing mucosa. [...] you through [facility] when your pathology results. Daktoah Rios MD 08/11/2024 12:12:46 PM This report has been signed electronically. Number of Addenda: 0 Procedure Date: 08/11/2024 10:55:04 AM [id number] [facility] [address] [place] [address] Dakotah Rios MD GI PROCEDURE ORDERABLES Lindsey l Result * CERV/VAG CYTO SCREEN PAP W/HPV (06/08/2022 10:47 AM CLIENT ACCOUNT SPECIALIST) CLINICAL INFORMATION [facility] Comment:None given LAST MENSTRUAL PERIOD [facility] Comment:NONE GIVEN PREV PAP: [facility] Comment:NONE GIVEN PREV BX: [facility] Comment:NONE GIVEN SOURCE [facility] Comment:Endocervix ADEQUACY: [facility] Comment: Satisfactory for evaluation. Endocervical/transformation zone component present. Age and/or menstrual status not provided PAP INTERP [facility] Comment:Negative for intraep ithelial lesion or malignancy. COMMENT (PAP TEST) [facility] Comment: This Pap test has been evaluated with computer assisted technology. SUSTAINABILITY COACH: Tresa Colunga Comment: MVB, CT(ASCP) CT Screening Location: [place] [address] [place] [address] EXPLANATORY NOTE [facility] Comment: EXPLANATORY NOTE: The Pap is [...] information. HPV E6/E7 Not Detected Not Detected [facility] Comment: Methodology: Customer Service Cashier-Mediated Amplification This assay detects E6/E7 viral messenger RNA (mRNA) from 14 high-risk HPV types (16,18,31,33,35,39,45,51,52,56,58,59,66,68). Cervical sources are required for HPV testing. If a vaginal source from a patient who has had a total hysterectomy with removal of cervix was submitted, please contact the testing laboratory for alternative testing options. For additional information, please refer to http://education.Nulu/faq/BKU496l3 (This link if provided for information/ educational purposes only.) Test Performed at: [facility] [[email or web address]] [facility] [id number] [phone] Luc James D.O., MPH SL Genital SWAB OF ENDOCERVIX / Unknown 06/08/2022 10:47 AM CLIENT ACCOUNT SPECIALIST 06/09/2022 12:23 AM CLIENT ACCOUNT SPECIALIST us Dakotah Pratt MD PATHOLOGY/CYTOLOGY ORDERABLE S Final Result [facility] [phone] [facility] [[email or web address]] [facility] [id number] [phone] from Last 3 Months or Most Recently Relevant to Health Maintenance Insurance [facility] [employer] [facility] [employer] Advance Directives For more information, please contact: [phone] * Full Code (Latest Code Status on [...] 5:42 PM 08/21/2021 10:25 PM Care Teams Cranberry Farm Supervisor Relationship Specialty Start Date End Date Nikos Brooks MD [address] [place] [address] PCP - General Family Practice 06/27/20
--- OUTSIDE RECORDS SUMMARY | 2025-04-21 09:52 | XMS_ITS | Encounter Summary ---
Author Organization [employer] Address [address] [place] [address] Care Team Providers Care Geochemical Manager Name Role Phone Nikos Brooks MD Primary Care Provider [phone] Encounter Details Date Type Department Care Team (Late st Contact Info) Description 10/26/2002 Outpatient [place] [address] [facility] [address] [place] [address] Social History Tobacco Use Types Packs/Day Years Used Date Smoking Tobacco: Never Assessed Comments Unknown Sex and Gender Information Value Date Recorded Sex Assigned at Not on file Legal Sex Female 4:33 AM GED TEACHER Gender Identity Not on file Sexual Orientation Not on file documented as of this encounter Plan of Treatment Not on file documented as of this encounter Visit Diagnoses Not on filedocumented in this encounter Additional Health Concerns Infection Onset Date Last Indicated Resolved Time R/O COVID-19 04/09/2023 04/09/2023 04/10/2023 12:2 4 AM CDT documented as of this encounter Care Teams Geochemical Manager Relationship Specialty Start Date End Date Nikos Brooks MD [address] [place] [address] PCP - General Family Practice 06/27/20 documented as of this encounter
--- OUTSIDE RECORDS SUMMARY | 2025-04-21 09:52 | XMS_ITS | Encounter Summary ---
Author Organization [facility] Address [address] [place] [address] Care Team Providers Care Riveter Hand Name Role Phone Nikos Brooks MD Primary Care Provider [phone] Encounter Details Date Type Department Care Team (Late st Contact Info) Description 02/10/2007 Outpatient Historical [facility] Internal Medicine - [place] [address] [place] [address] Bernard Galvin MD [address] [facility] [address] [place] [address] Social History Tobacco Use Types Packs/Day Years Used Date Smoking Tobacco: Never Assessed Comments Unknown Sex and Gender Information Value Date Recorded Sex Assigned at Not on file Legal Sex Female 4:33 AM BUILDING COORDINATOR Gender Identity Not on file Sexual Orientation Not on file documented as of this encounter Plan of Treatment Not on file documented as of this encounter Visit Diagnoses Not on filedocumented in this encounter Additional Health Concerns Infection Onset Date Last Indicated Resolved Time R/O COVID-19 04/09/2023 04/09/2023 04/10/2023 12:2 4 AM CDT documented as of this encounter Care Teams Riveter Hand Relationship Specialty Start Date End Date Nikos Brooks MD [address] [place] [id number] PCP - General Family Practice 06/27/20 documented as of this encounter
--- OUTSIDE RECORDS SUMMARY | 2025-04-21 09:52 | XMS_ITS | Clinical Summary ---
Author Organization [facility] Address [address] [place] [address] Care Team Providers Care Chucking And Boring Machine Operator Name Role Phone Nikos Brooks MD Primary Care Provider [phone] Allergies Active Allergy Reactions Criticality Noted Date Comments Penicillins Unknown 04/11/2016 As a child Medications Belbuca 300 mcg film 07/11/2019 Active MLF36-tvfv cb,bj-dnxyb-dfn- dha 27-1-50-250 mg combo pack Take by mouth Active Active Problems Problem Noted Date Diagnosed Date Encounter for preconception consultation Threatened labor at term 06/29/2016 Pain in pelvis 05/05/2011 Allergic rhinitis 07/16/2009 Surgical History Surgery Date Site/Laterality Comments DILATION AND CURETTAGE OF UTERUS 2006,2015,2018 SECTION 06/21/2016 - 06/20/2017 [facility] Medical History Medical History Date Comments [...] on file Legal Sex Female 10:25 PM MARINE ENGINE MECHANIC Gender Identity Not on file Sexual Orientation Not on file Obstetrics History Last Filed Vital Signs Vital Sign Reading Time Taken Comments Blood Pressure 102/64 08/07/2019 9:58 AM MARINE ENGINE MECHANIC Pulse 75 08/07/2019 9:58 AM MARINE ENGINE MECHANIC Temperature 36.6 C (97.8 F) 08/07/2019 9:58 AM MARINE ENGINE MECHANIC Respiratory Rate - - Oxygen Saturation 98% 08/07/2019 9:58 AM MARINE ENGINE MECHANIC Inhaled Oxygen Concentration - - Weight 56.2 kg (124 lb) 08/07/2019 9:58 AM MARINE ENGINE MECHANIC Height 154.9 cm (5' 1) 08/07/2019 9:58 AM MARINE ENGINE MECHANIC Body Mass Index 23.43 08/07/2019 9:58 AM MARINE ENGINE MECHANIC Plan of Treatment Not on file Insurance ANTH TRADITIONAL ANTH ACCESS ANTHEM TRADITIONAL Care Teams Chucking And Boring Machine Operator Relationship Specialty Start Date End Date Nikos Brooks MD PCP - General Family Medicine 07/21/19
--- OUTSIDE RECORDS SUMMARY | 2025-04-21 09:52 | XMS_ITS | Encounter Summary ---
Author Organization [employer] Address [address] 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 [address] PCP - General Family Practice 06/27/20 documented as of this encounter
--- NOTE | 2025-04-21 09:55 | PC.NURSE ---
pt declined to be seen after checking in, pt ambulated out in NAD
== END 2025-04-21 10:23 | disposition left against medical advice (07) ==
PROVIDERS: PCP Family Medicine
DX: Z53.21 Procedure and treatment not carried out due to patient leaving prior to being seen by health care provider (principal)
CPT/HCPCS: 99199